=== PATIENT | female | born 1960 | race Caucasian/White ===

== ENCOUNTER 2019-08-18 17:28 | Emergency (ER) | payer OTHER ==
[~2019-08-18] VITALS: Ht 170.2 cm; Wt 119.8 kg
[~2019-08-18 17:28] MED LIST: BACTRIM DS TAB1 EACH PO; CLARITIN10 MG PO; COMBIVENT RESPIM4 GM INH; GABAPENTIN300 MG PO; HYDROCODON-ACE1 EA10 PO; IBUPROFEN200 MG PO; IBUPROFEN800 MG PO; IPRAT-ALBUT 0.5-3 ML INH; KEFLEX250 MG PO; LEVAQUIN500 MG PO; NORCO 5-325 TA1 EACH PO; PERCOCET 5-3251 EACH PO; PREDNISONE10 MG PO; PREDNISONE20 MG PO; PULMICORT FLE180 MCG INH; SEREVENT DISKU1 PUFF INH; THEO-24200 MG PO; VALACYCLOVIR1000 MG PO; VENTOLIN HFA18 GM INH; ZOFRAN ODT4 MG SL
[2019-08-18] MEDS ORDERED: PULMICORT FLE180 MCG INH (17:44)
[2019-08-18] MEDS ORDERED: IPRAT-ALBUT 0.5-3 ML INH (17:44)
[2019-08-18] MEDS ORDERED: PREDNISONE5 MG PO (17:45)
[2019-08-18] MEDS ORDERED: NORCO 7.5-3251 EACH PO (19:21)
== END 2019-08-18 19:48 | disposition home or self-care (01) ==
LOC: ED 17:28
DX: S32.019A Unspecified fracture of first lumbar vertebra, initial encounter for closed fracture (principal); S39.012A Strain of muscle, fascia and tendon of lower back, initial encounter; S30.0XXA Contusion of lower back and pelvis, initial encounter; J45.909 Unspecified asthma, uncomplicated; Z79.899 Other long term (current) drug therapy; X58.XXXA Exposure to other specified factors, initial encounter
CPT/HCPCS: 72100; 72170; 99283; A9270

== ENCOUNTER 2022-11-20 14:39 | Inpatient (IN) | payer OTHER ==
[~2022-11-20] VITALS: Ht 170.2 cm; Wt 97.1 kg
--- OUTSIDE RECORDS SUMMARY | ~2022-11-20 | XMS | Continuity of Care Document ---
Demographics + + + | Address | [address] | | | [place] [address] | + + + | Preferred Language | Unknown | + + + | Marital Status | | + + + | Restorationism Affiliation | Unknown | + + + | Race | White | + + + | Ethnic Group | Not or | + + + Author + + + | Author | [facility] | + + + | Organization | [facility] | + + + | Address | [address] | | | [place] [address] | + + + | Phone | | + + + Care Team Providers + + + + | Care Management Manager Name | Role | Phone | + + + + Unavailable | Unavailable | + + + + Unavailable | Unavailable | + + + + Unavailable | Unavailable | + + + + Unavailable | Unavailable | + + + + Allergies and Intolerances + + + + + | date | description | facility | type | + + + + + | (no date) | Upset stomach | [facility] | | + + + + + | (no date) | Ketamine | [facility] (unknown) | | [facility] | | + + + + + | (no date) | Anaphylaxis | [facility] | (unknown) | | | | [facility] | | + + + + + | (no date) | Ketamine | [facility] (unknown) [facility] | | [facility] | | + + + + + | (no date) | ketamine | [facility] | (unknown) | | | [facility] | | + + + + + | (no date) | Ketamine | [facility] | (unknown) | | | [facility] | | + + + + + | (no date) | Hallucinations | [facility] | (unknown) | | | [facility] | | + + + + + | (no date) | Milk | [facility] | (unknown) | | | | [facility] | | + + + + + | (no date) | Milk | [facility] | (unknown) | | | | [facility] | | + + + + + | (no date) | milk | [facility] ([facility] | | [facility] | | + + + + + | (no date) | milk | [facility] | (unknown) | + + + + + | (no date) | PRESERVATIVES | [facility] | (unknown) | + + + + + Encounters No information. Functional Status No information. Immunizations + + + + | date | description | facility | + + + + | 2022-11-15 00:00 | No vaccine administered | [facility] | + + + + Medications + + + + | date | description | facility | + + + + | 2022-11-15 00:00 | OXYCODONE HCL | [facility] | + + + + | 2022-11-15 00:00 | oxycodone hydrochloride 5 | [facility] | | | MG Oral Tablet | | + + + + | 2016-03-11 00:00 | OXYCODONE | [facility] | | | HCL/ACETAMINOPHEN | | + + + + | 2016-03-11 00:00 | OXYCODONE | [facility] | | | HCL/ACETAMINOPHEN | | + + + + | 2016-03-11 00:00 | acetaminophen 325 MG / | [facility] | | | oxycodone hydrochloride 5 | | | | MG Oral Tab | | + + + + | 2022-11-15 00:00 | 120 ACTUAT albuterol 0.1 | [facility] | | | MG/ACTUAT / ipratropium | | | | bromide 0.0 | | + + + + | 2022-09-01 00:00 | IPRATROPIUM/ALBUTEROL | [facility] | | | SULFATE | | + + + + | 2022-10-03 00:00 | IPRATROPIUM/ALBUTEROL | [facility] | | | SULFATE | | + + + + | 2022-11-15 00:00 | IPRATROPIUM/ALBUTEROL | [facility] | | | SULFATE | | + + + + | 2022-09-01 00:00 | predniSONE | [facility] | + + + + | 2022-10-03 00:00 | predniSONE | [facility] | + + + + | 2022-11-15 00:00 | predniSONE | [facility] | + + + + | 2022-11-15 00:00 | prednisone 10 MG Oral | [facility] | | | Tablet | | + + + + | 2022-09-01 00:00 | CEFDINIR | [facility] | + + + + | 2022-09-01 00:00 | CEFDINIR | [facility] | + + + + | 2022-09-01 00:00 | cefdinir 300 MG Oral | [facility] | | | Capsule | | + + + + | 2022-09-01 00:00 | LORATADINE | [facility] | + + + + | 2022-10-03 00:00 | LORATADINE | [facility] | + + + + | 2022-11-15 00:00 | LORATADINE | [facility] | + + + + | 2022-11-15 00:00 | loratadine 10 MG Oral | [facility] | | | Tablet [Claritin] | | + + + + | 2014-11-05 00:00 | LEVOFLOXACIN | [facility] | + + + + | 2014-11-05 00:00 | LEVOFLOXACIN | [facility] | + + + + | 2014-11-05 00:00 | levofloxacin 500 MG Oral | [facility] | | | Tablet [Levaquin] | | + + + + | 2016-03-11 00:00 | CEPHALEXIN | [facility] | + + + + | 2016-03-11 00:00 | CEPHALEXIN | [facility] | + + + + | 2016-03-11 00:00 | cephalexin 250 MG Oral | [facility] | | | Capsule [Keflex] | | + + + + | 2022-09-01 00:00 | GABAPENTIN | [facility] | + + + + | 2022-10-03 00:00 | GABAPENTIN | [facility] | + + + + | 2022-11-15 00:00 | GABAPENTIN | [facility] | + + + + | 2022-11-15 00:00 | gabapentin 300 MG Oral | [facility] | | | Capsule | | + + + + | 2022-09-01 00:00 | IBUPROFEN | [facility] | + + + + | 2022-10-03 00:00 | IBUPROFEN | [facility] | + + + + | 2022-11-15 00:00 | IBUPROFEN | [facility] | + + + + | 2022-11-15 00:00 | ibuprofen 200 MG Oral | [facility] | | | Tablet | | + + + + | 2022-10-03 00:00 | ONDANSETRON | [facility] | + + + + | 2022-11-15 00:00 | ONDANSETRON | [facility] | + + + + | 2022-10-03 00:00 | ondansetron 8 MG | [facility] | | | Disintegrating Oral Tablet | | + + + + | 2022-11-15 00:00 | ondansetron 8 MG | [facility] | | | Disintegrating Oral Tablet | | + + + + | 2022-09-01 00:00 | predniSONE | [facility] | + + + + | 2022-10-03 00:00 | predniSONE | [facility] | + + + + | 2022-11-15 00:00 | predniSONE | [facility] | + + + + | 2022-11-15 00:00 | prednisone 20 MG Oral | [facility] | | | Tablet | | + + + + | 2022-09-01 00:00 | PREDNISONE | [facility] | + + + + | 2022-10-03 00:00 | PREDNISONE | [facility] | + + + + | 2022-11-15 00:00 | PREDNISONE | [facility] | + + + + | 2022-11-15 00:00 | prednisone 5 MG Oral | [facility] | | | Tablet | | + + + + | 2022-11-15 00:00 | SENNOSIDES | [facility] | + + + + | 2022-11-15 00:00 | sennosides, ASSISTED 8.6 MG | [facility] | | | Oral Tablet | | + + + + | 2022-09-01 00:00 | VALACYCLOVIR HCL | [facility] | + + + + | 2022-10-03 00:00 | VALACYCLOVIR HCL | [facility] | + + + + | 2022-11-15 00:00 | VALACYCLOVIR HCL | [facility] | + + + + | 2022-11-15 00:00 | valacyclovir 1000 MG Oral | [facility] | | | Tablet | | + + + + | 2022-09-01 00:00 | TRAMADOL HCL | [facility] | + + + + | 2022-09-01 00:00 | TRAMADOL HCL | [facility] | + + + + | 2022-09-01 00:00 | THEOPHYLLINE ANHYDROUS | [facility] | + + + + | 2022-10-03 00:00 | THEOPHYLLINE ANHYDROUS | [facility] | + + + + | 2022-11-15 00:00 | THEOPHYLLINE ANHYDROUS | [facility] | + + + + | 2022-11-15 00:00 | theophylline 200 MG | [facility] | | | Extended Release Oral | | | | Capsule [Hunter-24] | | + + + + | 2014-01-04 00:00 | | [facility] | | | SULFAMETHOXAZOLE/TRIMETHOPR | | | | IM DS | | + + + + | 2014-01-04 00:00 | | [facility] | | | SULFAMETHOXAZOLE/TRIMETHOPR | | | | IM DS | | + + + + | 2016-02-17 00:00 | | [facility] | | | SULFAMETHOXAZOLE/TRIMETHOPR | | | | IM DS | | + + + + | 2016-02-17 00:00 | | [facility] | | | SULFAMETHOXAZOLE/TRIMETHOPR | | | | IM DS | | + + + + | 2014-01-04 00:00 | sulfamethoxazole 800 MG / | [facility] | | | trimethoprim 160 MG Oral | | | | Tablet [B | | + + + + | 2016-02-17 00:00 | sulfamethoxazole 800 MG / | [facility] | | | trimethoprim 160 MG Oral | | | | Tablet [B | | + + + + | 2022-09-01 00:00 | HYDROCODONE | [facility] | | | BIT/ACETAMINOPHEN | | + + + + | 2022-10-03 00:00 | HYDROCODONE | [facility] | | | BIT/ACETAMINOPHEN | | + + + + | 2022-11-15 00:00 | HYDROCODONE | [facility] | | | BIT/ACETAMINOPHEN | | + + + + | 2022-11-15 00:00 | acetaminophen 325 MG / | [facility] | | | hydrocodone bitartrate 5 MG | | | | Oral Tabl | | + + + + | 2014-11-05 00:00 | HYDROCODONE | [facility] | | | BIT/ACETAMINOPHEN | | + + + + | 2014-11-05 00:00 | HYDROCODONE | [facility] | | | BIT/ACETAMINOPHEN | | + + + + | 2014-11-05 00:00 | acetaminophen 325 MG / | [facility] | | | hydrocodone bitartrate 5 MG | | | | Oral Tabl | | + + + + | 2022-10-03 00:00 | HYDROCODONE | [facility] | | | BIT/ACETAMINOPHEN | | + + + + | 2022-10-03 00:00 | acetaminophen 325 MG / | [facility] | | | hydrocodone bitartrate 7.5 | | | | MG Oral Ta | | + + + + | 2022-09-01 00:00 | ALBUTEROL SULFATE | [facility] | + + + + | 2022-10-03 00:00 | ALBUTEROL SULFATE | [facility] | + + + + | 2022-11-15 00:00 | ALBUTEROL SULFATE | [facility] | + + + + | 2022-11-15 00:00 | [id number] 200 ACTUAT | [facility] | | | albuterol 0.09 MG/ACTUAT | | | | Metered Dose I | | + + + + | 2022-11-15 00:00 | HYDROMORPHONE HCL | [facility] | + + + + | 2022-11-15 00:00 | hydromorphone | [facility] | | | hydrochloride 2 MG Oral | | | | Tablet [Dilaudid] | | + + + + | 2022-11-15 00:00 | 120 ACTUAT budesonide 0.18 | [facility] | | | MG/ACTUAT Dry Powder | | | | Inhaler [Pul | | + + + + | 2022-09-01 00:00 | BUDESONIDE | [facility] | + + + + | 2022-10-03 00:00 | BUDESONIDE | [facility] | + + + + | 2022-11-15 00:00 | BUDESONIDE | [facility] | + + + + Problems + + + + | date | description | facility | + + + + | 2014-11-02 00:00 | Sepsis | [facility] | + + + + | 2014-11-02 00:00 | Sepsis | [facility] | + + + + | 2015-07-06 00:00 | Laceration of right lower | [facility] | | | leg with complication | | + + + + | 2015-07-06 00:00 | Laceration of right lower | [facility] | | | leg with complication | | + + + + | 2015-07-06 00:00 | History of conscious | [facility] | | | sedation | | + + + + | 2015-07-06 00:00 | History of conscious | [facility] | | | sedation | | + + + + | 2016 00:00 | Cellulitis of right foot | [facility] | + + + + | 2016 00:00 | Cellulitis of right foot | [facility] | + + + + | 2016-02-16 00:00 | Sepsis, Gram positive | [facility] | + + + + | 2016-02-16 00:00 | Morbid obesity with BMI of | [facility] | | | 40.0-44.9, adult | | + + + + | 2016-02-16 00:00 | Transaminitis | [facility] | + + + + | 2016-02-16 00:00 | Gram positive sepsis | [facility] | + + + + | 2016-02-16 00:00 | Gram positive sepsis | [facility] | + + + + | 2016-02-16 00:00 | Herpes zoster | [facility] | + + + + | 2016-02-16 00:00 | Herpes zoster | [facility] | + + + + | 2016-02-16 00:00 | Morbid obesity with body | [facility] | | | mass index (BMI) of 40.0 to | | | | 44.9 in adult | | + + + + | 2016-02-16 00:00 | Morbid obesity with body | [facility] | | | mass index (BMI) of 40.0 to | | | | 44.9 in adult | | + + + + | 2016-02-16 00:00 | Chronic pain syndrome | [facility] | + + + + | 2016-02-16 00:00 | Chronic pain syndrome | [facility] | + + + + | 2016-02-16 00:00 | Steroid-dependent asthma | [facility] | + + + + | 2016-02-16 00:00 | Steroid-dependent asthma | [facility] | + + + + | 2016-02-16 00:00 | Elevated transaminase | [facility] | | | measurement | | + + + + | 2016-02-16 00:00 | Elevated transaminase | [facility] | | | measurement | | + + + + | 2016-03-11 00:00 | Contusion of left shoulder | [facility] | | | | | + + + + | 2016-03-11 00:00 | Contusion of left shoulder | [facility] | | | | | + + + + | 2016-03-11 00:00 | Skin tear of left upper | [facility] | | | extremity | | + + + + | 2016-03-11 00:00 | Skin tear of left upper | [facility] | | | extremity | | + + + + | 2016-03-11 00:00 | Tear of skin of multiple | [facility] | | | sites of lower extremity | | + + + + | 2016-03-11 00:00 | Tear of skin of multiple | [facility] | | | sites of lower extremity | | + + + + | 2016-03-11 00:00 | Fall from ground level | [facility] | + + + + | 2016-03-11 00:00 | Fall from ground level | [facility] | + + + + | 2022-09-01 00:00 | UTI (urinary tract | [facility] | | | infection) | | + + + + | 2022-09-01 00:00 | Gastritis | [facility] | + + + + | 2022-09-01 00:00 | Gastritis | [facility] | + + + + | 2022-09-01 00:00 | Urinary tract infection | [facility] | + + + + | 2022-09-01 00:00 | Urinary tract infection | [facility] | + + + + | 2022-09-01 13:18 | GASTRITIS, UNSPECIFIED, | [facility] | | | WITHOUT BLEEDING | | + + + + | 2022-09-01 13:18 | URINARY TRACT INFECTION, | [facility] | | | SITE NOT SPECIFIED | | + + + + | 2022-09-01 13:18 | EPIGASTRIC PAIN | [facility] | + + + + | 2022-09-01 13:18 | 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 | | + + + + | 2022-09-01 13:18 | ALLERGY TO MILK PRODUCTS | [facility] | + + + + | 2022-10-03 00:00 | Mass of pancreas | [facility] | + + + + | 2022-10-03 00:00 | Dyspepsia | [facility] | + + + + | 2022-10-03 13:51 | UNSPECIFIED ASTHMA, | [facility] | | | UNCOMPLICATED | | + + + + | 2022-10-03 13:51 | DISEASE OF PANCREAS, | [facility] | | | UNSPECIFIED | | + + + + | 2022-10-03 13:51 | UPPER ABDOMINAL PAIN, | [facility] | | | UNSPECIFIED | | + + + + | 2022-10-03 13:51 | 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) | [facility] | | | DRUG THERAPY | | + + + + | 2022-10-03 13:51 | ALLERGY TO MILK PRODUCTS | [facility] | + + + + | 2022-10-03 13:51 | FOOD ADDITIVES ALLERGY | [facility] | | | STATUS | | + + + + | 2022-10-22 15:12 | MALIGNANT NEOPLASM OF | [facility] | | | OVERLAPPING SITES OF | | | | PANCREAS | | + + + + | 2022-10-24 09:45 | MALIGNANT NEOPLASM OF | [facility] | | | OVERLAPPING SITES OF | | | | PANCREAS | | + + + + | 2022-10-24 09:45 | OTHER SPECIFIED DISEASES | [facility] | | | OF LIVER | | + + + + | 2022-10-26 12:38 | MALIGNANT NEOPLASM OF | [facility] | | | OVERLAPPING SITES OF | | | | PANCREAS | | + + + + | 2022-11-09 14:17 | MALIGNANT NEOPLASM OF | [facility] | | | OVERLAPPING SITES OF | | | | PANCREAS | | + + + + | 2022-11-09 14:17 | MALIGNANT NEOPLASM OF | [facility] | | | OVERLAPPING SITES | | + + + + | 2022-11-09 14:30 | MALIGNANT NEOPLASM OF | [facility] | | | OVERLAPPING SITES | | + + + + | 2022-11-15 09:57 | MALIGNANT NEOPLASM OF | [facility] | | | PANCREAS, UNSPECIF | | + + + + | 2022-11-15 09:57 | 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 | | + + + + | 2022-11-15 09:57 | ENLARGED LYMPH NODES, | [facility] | | | UNSPECIFIED | | + + + + | 2022-11-15 12:30 | MALIGNANT NEOPLASM OF | [facility] | | | PANCREAS, UNSPECIF | | + + + + | 2022-11-15 12:30 | 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 (no | [facility]units | (unknown) | | | | [facility] | value) | unknown) | | | [facility] | | | | + + + + +---------+ + + + + | Result panel 2 | + + + + + + +---------+ + + | (unknown) | (no date) | (unknown) | [facility] | (no | (units | (unknown) | | | | [facility] | value) | unknown) | | | | [facility] | | | | + + + + +---------+ + + + + | Result panel 3 | + + + + + + +---------+ + + | (unknown) | (no date) | (unknown) | [facility] | (no | (units | (unknown) | | | | [facility] | value) | unknown) | | | | [facility] | | | | + + + + +---------+ + + + + | Result panel 4 | + + + + + + +---------+ + + | (unknown) | (no date) | (unknown) | [facility] | (no | (units | (unknown) | | | | | [facility] | value) | unknown) | | | | | [facility] | | | | + + + + +---------+ + + + + | Result panel 5 | + + + + + + +---------+ + + | (unknown) | (no date) | (unknown) | [facility] | (no | (units | (unknown) | | | | | [facility] | value) | unknown) | | | | | [facility] | | | | + + + + +---------+ + + + + | Result panel 6 | + + + + + + +---------+ + + | (unknown) | (no date) | (unknown) | [facility] | (no | (units | (unknown) | | | | | [facility] | value) | unknown) | | | | | [facility] | | | | + + + + +---------+ + + + + | Result panel 7 | + + + + + + +---------+ + + | (unknown) | (no date) | (unknown) | [facility] | (no | (units | (unknown) | | | | | [facility] | value) | unknown) | | | | | [facility] | | | | + + + + +---------+ + + + + | Result panel 8 | + + + + + + +---------+ + + | (unknown) | (no date) | (unknown) | [facility] | (no | (units | (unknown) | | | | | [facility] | value) | unknown) | | | | | [facility] | | | | + + + + +---------+ + + + + | Result panel 9 | + + + + + + +---------+ + + | (unknown) | (no date) | (unknown) | [facility] | (no | (units | (unknown) | | | | | [facility] | value) | unknown) | | | | | [facility] | | | | + + + + +---------+ + + + + | Result panel 10 | + + + + + + +---------+ + + | (unknown) | (no date) | (unknown) | [facility] | (no | (units | (unknown) | | | | | [facility] | value) | unknown) | | | | | [facility] | | | | + + + + +---------+ + + + + | Result panel 11 | + + + + + + +---------+ + + | (unknown) | (no date) | (unknown) | [facility] | (no | (units | (unknown) | | | | | [facility] | value) | unknown) | | | | | [facility] | | | | + + + + +---------+ + + + + | Result panel 12 | + + + + + + +---------+ + + | (unknown) | (no date) | (unknown) | [facility] | (no | (units | (unknown) | | | | | [facility] | value) | unknown) | | | | | [facility] | | | | + + + + +---------+ + + + + | Result panel 13 | + + + + + + +---------+ + + | (unknown) | (no date) | (unknown) | [facility] | (no | (units | (unknown) | | | | | [facility] | value) | unknown) | | | | | [facility] | | | | + + + + +---------+ + + + + | Result panel 14 | + + + + + + +---------+ + + | (unknown) | (no date) | (unknown) | [facility] | (no | (units | (unknown) | | | | | [facility] | value) | unknown) | | | | | [facility] | | | | + + + + +---------+ + + + + | Result panel 15 | + + + + + + +---------+ + + | (unknown) | (no date) | (unknown) | [facility] | (no | (units | (unknown) | | | | | [facility] | value) | unknown) | | | | [facility] | | | | + + + + +---------+ + + + + | Result panel 16 | + + + + + + +---------+ + + | (unknown) | (no date) | (unknown) | [facility] | (no | (units | (unknown) | | | | | [facility] | value) | unknown) | | | | [facility] | | | | + + + + +---------+ + + + + | Result panel 17 | + + + + + + +---------+ + + | (unknown) | (no date) | (unknown) | [facility] | (no | (units | (unknown) | | | | | [facility] | value) | unknown) | | | | [facility] | | | | + + + + +---------+ + + + + | Result panel 18 | + + + + + + +---------+ + + | (unknown) | (no date) | (unknown) | [facility] | (no | (units | (unknown) | | | | | [facility] | value) | unknown) | | | | [facility] | | | | + + + + +---------+ + + + + | Result panel 19 | + + + + + + +---------+ + + | (unknown) | (no date) | (unknown) | [facility] | (no | (units | (unknown) | | | | | [facility] | value) | unknown) | | | | [facility] | | | | + + + + +---------+ + + + + | Result panel 20 | + + + + + + +---------+ + + | (unknown) | (no date) | (unknown) | [facility] | (no | (units | (unknown) | | | | | [facility] | value) | unknown) | | | | [facility] | | | | + + + + +---------+ + + + + | Result panel 21 | + + + + + + +---------+ + + | (unknown) | (no date) | (unknown) | [facility] | (no | (units | (unknown) | | | | | [facility] | value) | unknown) | | | | [facility] | | | | + + + + +---------+ + + + + | Result panel 22 | + + + + + + +---------+ + + | (unknown) | (no date) | (unknown) | [facility] | (no | (units | (unknown) | | | | | [facility] | value) | unknown) | | | | [facility] | | | | + + + + +---------+ + + + + | Result panel 23 | + + + + + + +---------+ + + | (unknown) | (no date) | (unknown) | [facility] | (no | (units | (unknown) | | | | | [facility] | value) | unknown) | | | | [facility] | | | | + + + + +---------+ + + + + | Result panel 24 | + + + + + + +---------+ + + | (unknown) | (no date) | (unknown) | [facility] | (no | (units | (unknown) | | | | | [facility] | value) | unknown) | | | | [facility] | | | | + + + + +---------+ + + + + | Result panel 25 | + + + + + + +---------+ + + | (unknown) | (no date) | (unknown) | [facility] | (no | (units | (unknown) | | | | | [facility] | value) | unknown) | | | | | [facility] | | | | + + + + +---------+ + + + + | Result panel 26 | + + + + + + +---------+ + + | (unknown) | (no date) | (unknown) | [facility] | (no | (units | (unknown) | | | | | [facility] | value) | unknown) | | | | | [facility] | | | | + + + + +---------+ + + + + | Result panel 27 | + + + + + + +---------+ + + | (unknown) | (no date) | (unknown) | [facility] | (no | (units | (unknown) | | | | | [facility] | value) | unknown) | | | | | [facility] | | | | + + + + +---------+ + + + + | Result panel 28 | + + + + + + +---------+ + + | (unknown) | (no date) | (unknown) | [facility] | (no | (units | (unknown) | | | | | [facility] | value) | unknown) | | | | | [facility] | | | | + + + + +---------+ + + + + | Result panel 29 | + + + + + + +---------+ + + | (unknown) | (no date) | (unknown) | [facility] | (no | (units | (unknown) | | | | | [facility] | value) | unknown) | | | | | | [facility] | | | | + + + + +---------+ + + + + | Result panel 30 | + + + + + + +---------+ + + | (unknown) | (no date) | (unknown) | [facility] | (no | (units | (unknown) | | | | | [facility] | value) | unknown) | | | | | | [facility] | | | | + + + + +---------+ + + + + | Result panel 31 | + + + + + + +---------+ + + | (unknown) | (no date) | (unknown) | [facility] | (no | (units | (unknown) | | | | | [facility] | value) | unknown) | | | | | | [facility] | | | | + + + + +---------+ + + + + | Result panel 32 | + + + + + + +---------+ + + | (unknown) | (no date) | (unknown) | [facility] | (no | (units | (unknown) | | | | | [facility] | value) | unknown) | | | | | | [facility] | | | | + + + + +---------+ + + + + | Result panel 33 | + + + + + + +---------+ + + | (unknown) | (no date) | (unknown) | [facility] | (no | (units | (unknown) | | | | | [facility] | value) | unknown) | | | | | | [facility] | | | | + + + + +---------+ + + + + | Result panel 34 | + + + + + + +---------+ + + | (unknown) | (no date) | (unknown) | [facility] | (no | (units | (unknown) | | | | | [facility] | value) | unknown) | | | | | | [facility] | | | | + + + + +---------+ + + + + | Result panel 35 | + + + + + + +---------+ + + | (unknown) | (no date) | (unknown) | [facility] | (no | (units | (unknown) | | | | | [facility] | value) | unknown) | | | | | | [facility] | | | | + + + + +---------+ + + + + | Result panel 36 | + + + + + + +---------+ + + | (unknown) | (no date) | (unknown) | [facility] | (no | (units | (unknown) | | | | | [facility] | value) | unknown) | | | | | [facility] | | | | + + + + +---------+ + + + + | Result panel 37 | + + + + + + +---------+ + + | (unknown) | (no date) | (unknown) | [facility] | (no | (units | (unknown) | | | | | [facility] | value) | unknown) | | | | | [facility] | | | | + + + + +---------+ + + + + | Result panel 38 | + + + + + + +---------+ + + | (unknown) | (no date) | (unknown) | [facility] | (no | (units | (unknown) | | | | | [facility] | value) | unknown) | | | | | [facility] | | | | + + + + +---------+ + + + + | Result panel 39 | + + + + + + +---------+ + + | (unknown) | (no date) | (unknown) | [facility] | (no | (units | (unknown) | | | | | [facility] | value) | unknown) | | | | | [facility] | | | | + + + + +---------+ + + + + | Result panel 40 | + + + + + + +---------+ + + | (unknown) | (no date) | (unknown) | [facility] | (no | (units | (unknown) | | | | | [facility] | value) | unknown) | | | | | [facility] | | | | + + + + +---------+ + + + + | Result panel 41 | + + + + + + +---------+ + + | (unknown) | (no date) | (unknown) | [facility] | (no | (units | (unknown) | | | | | [facility] | value) | unknown) | | | | | [facility] | | | | + + + + +---------+ + + + + | Result panel 42 | + + + + + + +---------+ + + | (unknown) | (no date) | (unknown) | [facility] | (no | (units | (unknown) | | | | | [facility] | value) | unknown) | | | | | [facility] | | | | + + + + +---------+ + + + + | Result panel 43 | + + + + + + +---------+ + + | (unknown) | (no date) | (unknown) | [facility] | (no | (units | (unknown) | | | | | [facility] | value) | unknown) | | | | | [facility] | | | | + + + + +---------+ + + + + | Result panel 44 | + + + + + + +---------+ + + | (unknown) | (no date) | (unknown) | [facility] | (no | (units | (unknown) | | | | | [facility] | value) | unknown) | | | | | [facility] | | | | + + + + +---------+ + + + + | Result panel 45 | + + + + + + +---------+ + + | (unknown) | (no date) | (unknown) | [facility] | (no | (units | (unknown) | | | | | [facility] | value) | unknown) | | | | | [facility] | | | | + + + + +---------+ + + + + | Result panel 46 | + + + + + + +---------+ + + | (unknown) | (no date) | (unknown) | [facility] | (no | (units | (unknown) | | | | | [facility] | value) | unknown) | | | | | [facility] | | | | + + + + +---------+ + + + + | Result panel 47 | + + + + + + +---------+ + + | (unknown) | (no date) | (unknown) | [facility] | (no | (units | (unknown) | | | | | [facility] | value) | unknown) | | | | | [facility] | | | | + + + + +---------+ + + + + | Result panel 48 | + + + + + + +---------+ + + | (unknown) | (no date) | (unknown) | [facility] | (no | (units | (unknown) | | | | | [facility] | value) | unknown) | | | | | [facility] | | | | + + + + +---------+ + + + + | Result panel 49 | + + + + + + +---------+ + + | (unknown) | (no date) | (unknown) | [facility] | (no | (units | (unknown) | | | | | [facility] | value) | unknown) | | | | | [facility] | | | | + + + + +---------+ + + + + | Result panel 50 | + + + + + + +---------+ + + | (unknown) | (no date) | (unknown) | [facility] | (no | (units | (unknown) | | | | | [facility] | value) | unknown) | [facility] | | | [facility] | | | | + + + + +---------+ + + + + | Result panel 51 | + + + + + + +---------+ + + | (unknown) | (no date) | (unknown) | [facility] | (no | (units | (unknown) | | | | | [facility] | value) | unknown) | | | | | [facility] | | | | + + + + +---------+ + + + + | Result panel 52 | + + + + + + +---------+ + + | (unknown) | (no date) | (unknown) | [facility] | (no | (units | (unknown) | | | | | [facility] | value) | unknown) | [facility] | | | [facility] | | | | + + + + +---------+ + + + + | Result panel 53 | + + + + + + +---------+ + + | (unknown) | (no date) | (unknown) | [facility] | (no | (units | (unknown) | | | | | [facility] | value) | unknown) | | | | | [facility] | | | | + + + + +---------+ + + + + | Result panel 54 | + + + + + + +---------+ + + | (unknown) | (no date) | (unknown) | [facility] | (no | (units | (unknown) | | | | | [facility] | value) | unknown) | | | | | [facility] | | | | + + + + +---------+ + + + + | Result panel 55 | + + + + + + +---------+ + + | (unknown) | (no date) | (unknown) | [facility] | (no | (units | (unknown) | | | | | [facility] | value) | unknown) | | | | | [facility] | | | | + + + + +---------+ + + + + | Result panel 56 | + + + + + + +---------+ + + | (unknown) | (no date) | (unknown) | [facility] | (no | (units | (unknown) | | | | | [facility] | value) | unknown) | | | | | [facility] | | | | + + + + +---------+ + + + + | Result panel 57 | + + + + + + +---------+ + + | (unknown) | (no date) | (unknown) | [facility] | (no | (units | (unknown) | | | | | [facility] | value) | unknown) | | | | | [facility] | | | | + + + + +---------+ + + + + | Result panel 58 | + + + + + + +---------+ + + | (unknown) | (no date) | (unknown) | [facility] | (no | (units | (unknown) | | | | | [facility] | value) | unknown) | | | | | [facility] | | | | + + + + +---------+ + + + + | Result panel 59 | + + + + + + +---------+ + + | (unknown) | (no date) | (unknown) | [facility] | (no | (units | (unknown) | | | | | [facility] | value) | unknown) | | | | | [facility] | | | | + + + + +---------+ + + + + | Result panel 60 | + + + + + + +---------+ + + | (unknown) | (no date) | (unknown) | [facility] | (no | (units | (unknown) | | | | | [facility] | value) | unknown) | | | | | [facility] | | | | + + + + +---------+ + + + + | Result panel 61 | + + + + + + +---------+ + + | (unknown) | (no date) | (unknown) | [facility] | (no | (units | (unknown) | | | | | [facility] | value) | unknown) | | | | | [facility] | | | | + + + + +---------+ + + + + | Result panel 62 | + + + + + + +---------+ + + | (unknown) | (no date) | (unknown) | [facility] | (no | (units | (unknown) | | | | | [facility] | value) | unknown) | [facility] | | | [facility] | | | | + + + + +---------+ + + + + | Result panel 63 | + + + + + + +---------+ + + | (unknown) | (no date) | (unknown) | [facility] | (no | (units | (unknown) | | | | | [facility] | value) | unknown) | | | | | [facility] | | | | + + + + +---------+ + + + + | Result panel 64 | + + + + + + +---------+ + + | (unknown) | (no date) | (unknown) | [facility] | (no | (units | (unknown) | | | | | [facility] | value) | unknown) | | | | | [facility] | | | | + + + + +---------+ + + + + | Result panel 65 | + + + + + + +---------+ + + | (unknown) | (no date) | (unknown) | [facility] | (no | (units | (unknown) | | | | | [facility] | value) | unknown) | | | | | [facility] | | | | + + + + +---------+ + + + + | Result panel 66 | + + + + + + +---------+ + + | (unknown) | (no date) | (unknown) | [facility] | (no | (units | (unknown) | | | | | [facility] | value) | unknown) | | | | | [facility] | | | | + + + + +---------+ + + + + | Result panel 67 | + + + + + + +---------+ + + | (unknown) | (no date) | (unknown) | [facility] | (no | (units | (unknown) | | | | | [facility] | value) | unknown) | | | | | [facility] | | | | + + + + +---------+ + + + + | Result panel 68 | + + + + + + +---------+ + + | (unknown) | (no date) | (unknown) | [facility] | (no | (units | (unknown) | | | | | [facility] | value) | unknown) | | | | | [facility] | | | | + + + + +---------+ + + + + | Result panel 69 | + + + + + + +---------+ + + | (unknown) | (no date) | (unknown) | [facility] | (no | (units | (unknown) | | | | | [facility] | value) | unknown) | | | | | [facility] | | | | + + + + +---------+ + + + + | Result panel 70 | + + + + + + +---------+ + + | (unknown) | (no date) | (unknown) | [facility] | (no | (units | (unknown) | | | | | [facility] | value) | unknown) | | [facility] | | [facility] | | | | + + + + +---------+ + + + + | Result panel 71 | + + + + + + +---------+ + + | (unknown) | (no date) | (unknown) | [facility] | (no | (units | (unknown) | | | | | [facility] | value) | unknown) | | | | | [facility] | | | | + + + + +---------+ + + + + | Result panel 72 | + + + + + + +---------+ + + | (unknown) | (no date) | (unknown) | [facility] | (no | (units | (unknown) | | | | | [facility] | value) | unknown) | | | | | [facility] | | | | + + + + +---------+ + + + + | Result panel 73 | + + + + + + +---------+ + + | (unknown) | (no date) | (unknown) | [facility] | (no | (units | (unknown) | | | | | [facility] | value) | unknown) | | | | | [facility] | | | | + + + + +---------+ + + + + | Result panel 74 | + + + + + + +---------+ + + | (unknown) | (no date) | (unknown) | [facility] | (no | (units | (unknown) | | | | | [facility] | value) | unknown) | | | | | [facility] | | | | + + + + +---------+ + + + + | Result panel 75 | + + + + + + +---------+ + + | (unknown) | (no date) | (unknown) | [facility] | (no | (units | (unknown) | | | | | [facility] | value) | unknown) | | | | | [facility] | | | | + + + + +---------+ + + + + | Result panel 76 | + + + + + + +---------+ + + | (unknown) | (no date) | (unknown) | [facility] | (no | (units | (unknown) | | | | | [facility] | value) | unknown) | | | | | [facility] | | | | + + + + +---------+ + + + + | Result panel 77 | + + + + + + +---------+ + + | (unknown) | (no date) | (unknown) | [facility] | (no | (units | (unknown) | | | | | [facility] | value) | unknown) | | | | | [facility] | | | | + + + + +---------+ + + + + | Result panel 78 | + + + + + + +---------+ + + | (unknown) | (no date) | (unknown) | [facility] | (no | (units | (unknown) | | | | | [facility] | value) | unknown) | | | | | [facility] | | | | + + + + +---------+ + + + + | Result panel 79 | + + + + + + +---------+ + + | (unknown) | (no date) | (unknown) | [facility] | (no | (units | (unknown) | | | | | [facility] | value) | unknown) | | | | | | [facility] | | | | + + + + +---------+ + + + + | Result panel 80 | + + + + + + +---------+ + + | (unknown) | (no date) | (unknown) | [facility] | (no | (units | (unknown) | | | | | [facility] | value) | unknown) | | | | | [facility] | | | | + + + + +---------+ + + + + | Result panel 81 | + + + + + + +---------+ + + | (unknown) | (no date) | (unknown) | [facility] | (no | (units | (unknown) | | | | | [facility] | value) | unknown) | | | | | [facility] | | | | + + + + +---------+ + + + + | Result panel 82 | + + + + + + +---------+ + + | (unknown) | (no date) | (unknown) | [facility] | (no | (units | (unknown) | | | | | [facility] | value) | unknown) | [facility] | | | [facility] | | | | + + + + +---------+ + + + + | Result panel 83 | + + + + + + +---------+ + + | (unknown) | (no date) | (unknown) | [facility] | (no | (units | (unknown) | | | | | [facility] | value) | unknown) | | | | | [facility] | | | | + + + + +---------+ + + + + | Result panel 84 | + + + + + + +---------+ + + | (unknown) | (no date) | (unknown) | [facility] | (no | (units | (unknown) | | | | | [facility] | value) | unknown) | | | | | [facility] | | | | + + + + +---------+ + + + + | Result panel 85 | + + + + + + +---------+ + + | (unknown) | (no date) | (unknown) | [facility] | (no | (units | (unknown) | | | | | [facility] | value) | unknown) | [facility] | | | [facility] | | | | + + + + +---------+ + + + + | Result panel 86 | + + + + + + +---------+ + + | (unknown) | (no date) | (unknown) | [facility] | (no | (units | (unknown) | | | | | [facility] | value) | unknown) | | | | | [facility] | | | | + + + + +---------+ + + + + | Result panel 87 | + + + + + + +---------+ + + | (unknown) | (no date) | (unknown) | [facility] | (no | (units | (unknown) | | | | | [facility] | value) | unknown) | | | | | [facility] | | | | + + + + +---------+ + + + + | Result panel 88 | + + + + + + +---------+ + + | (unknown) | (no date) | (unknown) | [facility] | (no | (units | (unknown) | | | | | [facility] | value) | unknown) | | | | | [facility] | | | | + + + + +---------+ + + + + | Result panel 89 | + + + + + + +---------+ + + | (unknown) | (no date) | (unknown) | [facility] | (no | (units | (unknown) | | | | | [facility] | value) | unknown) | | | | | [facility] | | | | + + + + +---------+ + + + + | Result panel 90 | + + + + + + +---------+ + + | (unknown) | (no date) | (unknown) | [facility] | (no | (units | (unknown) | | | | | [facility] | value) | unknown) | | | | | [facility] | | | | + + + + +---------+ + + Social History + + + + | date | description | facility | + + + + | 2022-11-15 00:00 | Never smoker | [facility] | + + + + Vital Signs + + + +---------+ | date | measurement | value | units | + + + +---------+ | 2022-09-01 00:00 | BMI | 41.3 | kg/m2 | + + + +---------+ | 2022-09-01 00:00 | BP_diastolic | 92 | mmHg | + + + +---------+ | 2022-09-01 00:00 | BP_systolic | 138 | mmHg | + + + +---------+ | 2022-09-01 00:00 | heart_rate | 88 | /min | + + + +---------+ | 2022-09-01 00:00 | height_metric | 170.18 | cm | + + + +---------+ | 2022-09-01 00:00 | height_standard | 67 | in | + + + +---------+ | 2022-09-01 00:00 | o2_saturation | 95 | % | + + + +---------+ | 2022-09-01 00:00 | respiration_rate | 16 | /min | + + + +---------+ | 2022-09-01 00:00 | temperature_metric | 36.94 | C | | | | | | + + + +---------+ | 2022-09-01 00:00 | | 98.5 | F | | | temperature_standar | | | | | d | | | + + + +---------+ | 2022-09-01 00:00 | weight_metric | 119.75 | kg | + + + +---------+ | 2022-09-01 00:00 | weight_standard | 264 | lb | + + + +---------+ | 2022-10-03 00:00 | BMI | 41.3 | kg/m2 | + + + +---------+ | 2022-10-03 00:00 | BP_diastolic | 77 | mmHg | + + + +---------+ | 2022-10-03 00:00 | BP_systolic | 122 | mmHg | + + + +---------+ | 2022-10-03 00:00 | heart_rate | 66 | /min | + + + +---------+ | 2022-10-03 00:00 | height_metric | 170.18 | cm | + + + +---------+ | 2022-10-03 00:00 | height_standard | 67 | in | + + + +---------+ | 2022-10-03 00:00 | o2_saturation | 93 | % | + + + +---------+ | 2022-10-03 00:00 | respiration_rate | 16 | /min | + + + +---------+ | 2022-10-03 00:00 | temperature_metric | 36.72 | C | | | | | | + + + +---------+ | 2022-10-03 00:00 | | 98.1 | F | | | temperature_standar | | | | | d | | | + + + +---------+ | 2022-10-03 00:00 | weight_metric | 119.75 | kg | + + + +---------+ | 2022-10-03 00:00 | weight_standard | 264 | lb | + + + +---------+ | 2022-11-14 00:00 | BMI | 33.6 | kg/m2 | + + + +---------+ | 2022-11-14 00:00 | height_metric | 170.18 | cm | + + + +---------+ | 2022-11-14 00:00 | height_standard | 67 | in | + + + +---------+ | 2022-11-14 00:00 | weight_metric | 97.27 | kg | + + + +---------+ | 2022-11-14 00:00 | weight_standard | 214.44 | lb | + + + +---------+ | 2022-11-15 00:00 | BP_diastolic | 76 | mmHg | + + + +---------+ | 2022-11-15 00:00 | BP_systolic | 129 | mmHg | + + + +---------+ | 2022-11-15 00:00 | heart_rate | 72 | /min | + + + +---------+ | 2022-11-15 00:00 | o2_saturation | 100 | % | + + + +---------+ | 2022-11-15 00:00 | respiration_rate | 16 | /min | + + + +---------+ | 2022-11-15 00:00 | temperature_metric | 36.67 | C | | | | | | + + + +---------+ | 2022-11-15 00:00 | | 98 | F | | | temperature_standar | | | | | d | | | + + + +---------+"
--- OUTSIDE RECORDS SUMMARY | ~2022-11-20 | XMS | Continuity of Care Document ---
Demographics + + + | Address | [address] | | | [place] [address] | + + + | Preferred Language | Unknown | + + + | Marital Status | | + + + | Taoism Affiliation | Unknown | + + + | Race | White | + + + | Ethnic Group | Not or | + + + Author + + + | Author | [facility] | + + + | Organization | [facility] | + + + | Address | [address] | | | [place] [address] | + + + | Phone | | + + + Care Team Providers + + + + | Care Site Planner Name | Role | Phone | + [...] | (no date) | Ketamine | [facility] | (unknown) | | | | [facility] | | + + + + + | (no date) | Anaphylaxis | [facility] | (unknown) | | | | Hospital | | + + + + + | (no date) | Ketamine | [facility] | (unknown) | | | | Hospital | | + + + + + | (no date) | ketamine | [facility] | (unknown) | | | | Hospital | | + + + + + | (no date) | Ketamine | [facility] | (unknown) | | | | Hospital | | + + + + + | (no date) | Hallucinations | [facility] | (unknown) | | | | Hospital | | + + + + + | (no date) | Milk | [facility] | (unknown) | | | | Hospital | | + + + + + | (no date) | Milk | [facility] | (unknown) | | | | Hospital [...] 2022-11-15 00:00 | No vaccine administered | [facility] | + + + + Medications + + + + | date | description | facility | + + + + | 2022-11-15 00:00 | OXYCODONE HCL | [facility] | + + + + | 2022-11-15 00:00 | oxycodone hydrochloride 5 | [facility] | | | MG Oral Tablet | | + + + + | 2016-03-11 00:00 | OXYCODONE | [facility] | | | HCL/ACETAMINOPHEN | | + + + + | 2016-03-11 00:00 | OXYCODONE | [facility] | | | HCL/ACETAMINOPHEN | | + + + + | 2016-03-11 00:00 | acetaminophen 325 MG / | [facility] | | | oxycodone hydrochloride 5 | | | | MG Oral Tab | | + + + + | 2022-11-15 00:00 | 120 ACTUAT albuterol 0.1 | [facility] | | | MG/ACTUAT / ipratropium | | | | bromide 0.0 | | + + + + | 2022-09-01 00:00 | IPRATROPIUM/ALBUTEROL | [facility] | | | SULFATE | | + + + + | 2022-10-03 00:00 | IPRATROPIUM/ALBUTEROL | [facility] | | | SULFATE | | + + + + | 2022-11-15 00:00 | IPRATROPIUM/ALBUTEROL | [facility] | | | SULFATE | | + + + + | 2022-09-01 00:00 | predniSONE | [facility] | + + + + | 2022-10-03 00:00 | predniSONE | [facility] | + + + + | 2022-11-15 00:00 | predniSONE | [facility] | + + + + | 2022-11-15 00:00 | prednisone 10 MG Oral | [facility] | | | Tablet | | + + + + | 2022-09-01 00:00 | CEFDINIR | [facility] | + + + + | 2022-09-01 00:00 | CEFDINIR | [facility] | + + + + | 2022-09-01 00:00 | cefdinir 300 MG Oral | [facility] | | | Capsule | | + + + + | 2022-09-01 00:00 | LORATADINE | [facility] | + + + + | 2022-10-03 00:00 | LORATADINE | [facility] | + + + + | 2022-11-15 00:00 | LORATADINE | [facility] | + + + + | 2022-11-15 00:00 | loratadine 10 MG Oral | [facility] | | | Tablet [Claritin] | | + + + + | 2014-11-05 00:00 | LEVOFLOXACIN | [facility] | + + + + | 2014-11-05 00:00 | LEVOFLOXACIN | [facility] | + + + + | 2014-11-05 00:00 | levofloxacin 500 MG Oral | [facility] | | | Tablet [Levaquin] | | + + + + | 2016-03-11 00:00 | CEPHALEXIN | [facility] | + + + + | 2016-03-11 00:00 | CEPHALEXIN | [facility] | + + + + | 2016-03-11 00:00 | cephalexin 250 MG Oral | [facility] | | | Capsule [Keflex] | | + + + + | 2022-09-01 00:00 | GABAPENTIN | [facility] | + + + + | 2022-10-03 00:00 | GABAPENTIN | [facility] | + + + + | 2022-11-15 00:00 | GABAPENTIN | [facility] | + + + + | 2022-11-15 00:00 | gabapentin 300 MG Oral | [facility] | | | Capsule | | + + + + | 2022-09-01 00:00 | IBUPROFEN | [facility] | + + + + | 2022-10-03 00:00 | IBUPROFEN | [facility] | + + + + | 2022-11-15 00:00 | IBUPROFEN | [facility] | + + + + | 2022-11-15 00:00 | ibuprofen 200 MG Oral | [facility] | | | Tablet | | + + + + | 2022-10-03 00:00 | ONDANSETRON | [facility] | + + + + | 2022-11-15 00:00 | ONDANSETRON | [facility] | + + + + | 2022-10-03 00:00 | ondansetron 8 MG | [facility] | | | Disintegrating Oral Tablet | | + + + + | 2022-11-15 00:00 | ondansetron 8 MG | [facility] | | | Disintegrating Oral Tablet | | + + + + | 2022-09-01 00:00 | predniSONE | [facility] | + + + + | 2022-10-03 00:00 | predniSONE | [facility] | + + + + | 2022-11-15 00:00 | predniSONE | [facility] | + + + + | 2022-11-15 00:00 | prednisone 20 MG Oral | [facility] | | | Tablet | | + + + + | 2022-09-01 00:00 | PREDNISONE | [facility] | + + + + | 2022-10-03 00:00 | PREDNISONE | [facility] | + + + + | 2022-11-15 00:00 | PREDNISONE | [facility] | + + + + | 2022-11-15 00:00 | prednisone 5 MG Oral | [facility] | | | Tablet | | + + + + | 2022-11-15 00:00 | SENNOSIDES | [facility] | + + + + | 2022-11-15 00:00 | sennosides, N[facility]SING HOME 8.6 MG | [facility] | | | Oral Tablet | | + + + + | 2022-09-01 00:00 | VALACYCLOVIR HCL | [facility] | + + + + | 2022-10-03 00:00 | VALACYCLOVIR HCL | [facility] | + + + + | 2022-11-15 00:00 | VALACYCLOVIR HCL | [facility] | + + + + | 2022-11-15 00:00 | valacyclovir 1000 MG Oral | [facility] | | | Tablet | | + + + + | 2022-09-01 00:00 | TRAMADOL HCL | [facility] | + + + + | 2022-09-01 00:00 | TRAMADOL HCL | [facility] | + + + + | 2022-09-01 00:00 | THEOPHYLLINE ANHYDROUS | [facility] | + + + + | 2022-10-03 00:00 | THEOPHYLLINE ANHYDROUS | [facility] | + + + + | 2022-11-15 00:00 | THEOPHYLLINE ANHYDROUS | [facility] | + + + + | 2022-11-15 00:00 | theophylline 200 MG | [facility] | | | Extended Release Oral | | | | Capsule [Hunter-24] | | + + + + | 2014-01-04 00:00 | | [facility] | | | SULFAMETHOXAZOLE/TRIMETHOPR | | | | IM DS | | + + + + | 2014-01-04 00:00 | | [facility] | | | SULFAMETHOXAZOLE/TRIMETHOPR | | | | IM DS | | + + + + | 2016-02-17 00:00 | | [facility] | | | SULFAMETHOXAZOLE/TRIMETHOPR | | | | IM DS | | + + + + | 2016-02-17 00:00 | | [facility] | | | SULFAMETHOXAZOLE/TRIMETHOPR | | | | IM DS | | + + + + | 2014-01-04 00:00 | sulfamethoxazole 800 MG / | [facility] | | | trimethoprim 160 MG Oral | | | | Tablet [B | | + + + + | 2016-02-17 00:00 | sulfamethoxazole 800 MG / | [facility] | | | trimethoprim 160 MG Oral | | | | Tablet [B | | + + + + | 2022-09-01 00:00 | HYDROCODONE | [facility] | | | BIT/ACETAMINOPHEN | | + + + + | 2022-10-03 00:00 | HYDROCODONE | [facility] | | | BIT/ACETAMINOPHEN | | + + + + | 2022-11-15 00:00 | HYDROCODONE | [facility] | | | BIT/ACETAMINOPHEN | | + + + + | 2022-11-15 00:00 | acetaminophen 325 MG / | [facility] | | | hydrocodone bitartrate 5 MG | | | | Oral Tabl | | + + + + | 2014-11-05 00:00 | HYDROCODONE | [facility] | | | BIT/ACETAMINOPHEN | | + + + + | 2014-11-05 00:00 | HYDROCODONE | [facility] | | | BIT/ACETAMINOPHEN | | + + + + | 2014-11-05 00:00 | acetaminophen 325 MG / | [facility] | | | hydrocodone bitartrate 5 MG | | | | Oral Tabl | | + + + + | 2022-10-03 00:00 | HYDROCODONE | [facility] | | | BIT/ACETAMINOPHEN | | + + + + | 2022-10-03 00:00 | acetaminophen 325 MG / | [facility] | | | hydrocodone bitartrate 7.5 | | | | MG Oral Ta | | + + + + | 2022-09-01 00:00 | ALBUTEROL SULFATE | [facility] | + + + + | 2022-10-03 00:00 | ALBUTEROL SULFATE | [facility] | + + + + | 2022-11-15 00:00 | ALBUTEROL SULFATE | [facility] | + + + + | 2022-11-15 00:00 | [id number] 200 ACTUAT | [facility] | | | albuterol 0.09 MG/ACTUAT | | | | Metered Dose I | | + + + + | 2022-11-15 00:00 | HYDROMORPHONE HCL | [facility] | + + + + | 2022-11-15 00:00 | hydromorphone | [facility] | | | hydrochloride 2 MG Oral | | | | Tablet [Dilaudid] | | + + + + | 2022-11-15 00:00 | 120 ACTUAT budesonide 0.18 | [facility] | | | MG/ACTUAT Dry Powder | | | | Inhaler [Pul | | + + + + | 2022-09-01 00:00 | BUDESONIDE | [facility] | + + + + | 2022-10-03 00:00 | BUDESONIDE | [facility] | + + + + | 2022-11-15 00:00 | BUDESONIDE | [facility] | + + + + Problems + + + + | date | description | facility | + + + + | 2014-11-02 00:00 | Sepsis | [facility] | + + + + | 2014-11-02 00:00 | Sepsis | [facility] | + + + + | 2015-07-06 00:00 | Laceration of right lower | [facility] | | | leg with complication | | + + + + | 2015-07-06 00:00 | Laceration of right lower | [facility] | | | leg with complication | | + + + + | 2015-07-06 00:00 | History of conscious | [facility] | | | sedation | | + + + + | 2015-07-06 00:00 | History of conscious | [facility] | | | sedation | | + + + + | 2016 00:00 | Cellulitis of right foot | [facility] | + + + + | 2016 00:00 | Cellulitis of right foot | [facility] | + + + + | 2016-02-16 00:00 | Sepsis, Gram positive | [facility] | + + + + | 2016-02-16 00:00 | Morbid obesity with BMI of | [facility] | | | 40.0-44.9, adult | | + + + + | 2016-02-16 00:00 | Transaminitis | [facility] | + + + + | 2016-02-16 00:00 | Gram positive sepsis | [facility] | + + + + | 2016-02-16 00:00 | Gram positive sepsis | [facility] | + + + + | 2016-02-16 00:00 | Herpes zoster | [facility] | + + + + | 2016-02-16 00:00 | Herpes zoster | [facility] | + + + + | 2016-02-16 00:00 | Morbid obesity with body | [facility] | | | mass index (BMI) of 40.0 to | | | | 44.9 in adult | | + + + + | 2016-02-16 00:00 | Morbid obesity with body | [facility] | | | mass index (BMI) of 40.0 to | | | | 44.9 in adult | | + + + + | 2016-02-16 00:00 | Chronic pain syndrome | [facility] | + + + + | 2016-02-16 00:00 | Chronic pain syndrome | [facility] | + + + + | 2016-02-16 00:00 | Steroid-dependent asthma | [facility] | + + + + | 2016-02-16 00:00 | Steroid-dependent asthma | [facility] | + + + + | 2016-02-16 00:00 | Elevated transaminase | [facility] | | | measurement | | + + + + | 2016-02-16 00:00 | Elevated transaminase | [facility] | | | measurement | | + + + + | 2016-03-11 00:00 | Contusion of left shoulder | [facility] | | | | | + + + + | 2016-03-11 00:00 | Contusion of left shoulder | [facility] | | | | | + + + + | 2016-03-11 00:00 | Skin tear of left upper | [facility] | | | extremity | | + + + + | 2016-03-11 00:00 | Skin tear of left upper | [facility] | | | extremity | | + + + + | 2016-03-11 00:00 | Tear of skin of multiple | [facility] | | | sites of lower extremity | | + + + + | 2016-03-11 00:00 | Tear of skin of multiple | [facility] | | | sites of lower extremity | | + + + + | 2016-03-11 00:00 | Fall from ground level | [facility] | + + + + | 2016-03-11 00:00 | Fall from ground level | [facility] | + + + + | 2022-09-01 00:00 | UTI (urinary tract | [facility] | | | infection) | | + + + + | 2022-09-01 00:00 | Gastritis | [facility] | + + + + | 2022-09-01 00:00 | Gastritis | [facility] | + + + + | 2022-09-01 00:00 | Urinary tract infection | [facility] | + + + + | 2022-09-01 00:00 | Urinary tract infection | [facility] | + + + + [...] + + + | 2022-09-01 13:18 | 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
--- OUTSIDE RECORDS SUMMARY | ~2022-11-20 | XMS | Continuity of Care Document ---
Demographics + + + | Address | [address] | | | [place] [address] | + + + | Preferred Language | Unknown | + + + | Marital Status | | + + + | Sikh Affiliation | Unknown | + + + | Race | White | + + + | Ethnic Group | Not or | + + + Author + + + | Author | [facility] | + + + | Organization | [facility] | + + + | Address | [address] | | | [place] [address] | + + + | Phone | | + + + Care Team Providers + + + + | Care Buffer Automatic Name | Role | Phone | + [...] | (no date) | Ketamine | [facility] | (unknown) | | | | [facility] | | + + + + + | (no date) | Anaphylaxis | [facility] | (unknown) | | | | Hospital | | + + + + + | (no date) | Ketamine | [facility] | (unknown) | | | | Hospital | | + + + + + | (no date) | ketamine | [facility] | (unknown) | | | | Hospital | | + + + + + | (no date) | Ketamine | [facility] | (unknown) | | | | Hospital | | + + + + + | (no date) | Hallucinations | [facility] | (unknown) | | | | Hospital | | + + + + + | (no date) | Milk | [facility] | (unknown) | | | | Hospital | | + + + + + | (no date) | Milk | [facility] | (unknown) | | | | Hospital | | + + + + + | (no date) | milk | [facility] | (unknown) | | | | Hospital | | + + + + + | (no date) | ketamine | [facility] | (unknown) | + + [...] 2022-11-15 00:00 | No vaccine administered | [facility] | + + + + Medications + + + + | date | description | facility | + + + + | 2022-11-15 00:00 | OXYCODONE HCL | [facility] | + + + + | 2022-11-15 00:00 | oxycodone hydrochloride 5 | [facility] | | | MG Oral Tablet | | + + + + | 2016-03-11 00:00 | OXYCODONE | [facility] | | | HCL/ACETAMINOPHEN | | + + + + | 2016-03-11 00:00 | OXYCODONE | [facility] | | | HCL/ACETAMINOPHEN | | + + + + | 2016-03-11 00:00 | acetaminophen 325 MG / | [facility] | | | oxycodone hydrochloride 5 | | | | MG Oral Tab | | + + + + | 2022-11-15 00:00 | 120 ACTUAT albuterol 0.1 | [facility] | | | MG/ACTUAT / ipratropium | | | | bromide 0.0 | | + + + + | 2022-09-01 00:00 | IPRATROPIUM/ALBUTEROL | [facility] | | | SULFATE | | + + + + | 2022-10-03 00:00 | IPRATROPIUM/ALBUTEROL | [facility] | | | SULFATE | | + + + + | 2022-11-15 00:00 | IPRATROPIUM/ALBUTEROL | [facility] | | | SULFATE | | + + + + | 2022-09-01 00:00 | predniSONE | [facility] | + + + + | 2022-10-03 00:00 | predniSONE | [facility] | + + + + | 2022-11-15 00:00 | predniSONE | [facility] | + + + + | 2022-11-15 00:00 | prednisone 10 MG Oral | [facility] | | | Tablet | | + + + + | 2022-09-01 00:00 | CEFDINIR | [facility] | + + + + | 2022-09-01 00:00 | CEFDINIR | [facility] | + + + + | 2022-09-01 00:00 | cefdinir 300 MG Oral | [facility] | | | Capsule | | + + + + | 2022-09-01 00:00 | LORATADINE | [facility] | + + + + | 2022-10-03 00:00 | LORATADINE | [facility] | + + + + | 2022-11-15 00:00 | LORATADINE | [facility] | + + + + | 2022-11-15 00:00 | loratadine 10 MG Oral | [facility] | | | Tablet [Claritin] | | + + + + | 2014-11-05 00:00 | LEVOFLOXACIN | [facility] | + + + + | 2014-11-05 00:00 | LEVOFLOXACIN | [facility] | + + + + | 2014-11-05 00:00 | levofloxacin 500 MG Oral | [facility] | | | Tablet [Levaquin] | | + + + + | 2016-03-11 00:00 | CEPHALEXIN | [facility] | + + + + | 2016-03-11 00:00 | CEPHALEXIN | [facility] | + + + + | 2016-03-11 00:00 | cephalexin 250 MG Oral | [facility] | | | Capsule [Keflex] | | + + + + | 2022-09-01 00:00 | GABAPENTIN | [facility] | + + + + | 2022-10-03 00:00 | GABAPENTIN | [facility] | + + + + | 2022-11-15 00:00 | GABAPENTIN | [facility] | + + + + | 2022-11-15 00:00 | gabapentin 300 MG Oral | [facility] | | | Capsule | | + + + + | 2022-09-01 00:00 | IBUPROFEN | [facility] | + + + + | 2022-10-03 00:00 | IBUPROFEN | [facility] | + + + + | 2022-11-15 00:00 | IBUPROFEN | [facility] | + + + + | 2022-11-15 00:00 | ibuprofen 200 MG Oral | [facility] | | | Tablet | | + + + + | 2022-10-03 00:00 | ONDANSETRON | [facility] | + + + + | 2022-11-15 00:00 | ONDANSETRON | [facility] | + + + + | 2022-10-03 00:00 | ondansetron 8 MG | [facility] | | | Disintegrating Oral Tablet | | + + + + | 2022-11-15 00:00 | ondansetron 8 MG | [facility] | | | Disintegrating Oral Tablet | | + + + + | 2022-09-01 00:00 | predniSONE | [facility] | + + + + | 2022-10-03 00:00 | predniSONE | [facility] | + + + + | 2022-11-15 00:00 | predniSONE | [facility] | + + + + | 2022-11-15 00:00 | prednisone 20 MG Oral | [facility] | | | Tablet | | + + + + | 2022-09-01 00:00 | PREDNISONE | [facility] | + + + + | 2022-10-03 00:00 | PREDNISONE | [facility] | + + + + | 2022-11-15 00:00 | PREDNISONE | [facility] | + + + + | 2022-11-15 00:00 | prednisone 5 MG Oral | [facility] | | | Tablet | | + + + + | 2022-11-15 00:00 | SENNOSIDES | [facility] | + + + + | 2022-11-15 00:00 | sennosides, NURSING HOME 8.6 MG | [facility] | | | Oral Tablet | | + + + + | 2022-09-01 00:00 | VALACYCLOVIR HCL | [facility] | + + + + | 2022-10-03 00:00 | VALACYCLOVIR HCL | [facility] | + + + + | 2022-11-15 00:00 | VALACYCLOVIR HCL | [facility] | + + + + | 2022-11-15 00:00 | valacyclovir 1000 MG Oral | [facility] | | | Tablet | | + + + + | 2022-09-01 00:00 | TRAMADOL HCL | [facility] | + + + + | 2022-09-01 00:00 | TRAMADOL HCL | [facility] | + + + + | 2022-09-01 00:00 | THEOPHYLLINE ANHYDROUS | [facility] | + + + + | 2022-10-03 00:00 | THEOPHYLLINE ANHYDROUS | [facility] | + + + + | 2022-11-15 00:00 | THEOPHYLLINE ANHYDROUS | [facility] | + + + + | 2022-11-15 00:00 | theophylline 200 MG | [facility] | | | Extended Release Oral | | | | Capsule [Hunter-24] | | + + + + | 2014-01-04 00:00 | | [facility] | | | SULFAMETHOXAZOLE/TRIMETHOPR | | | | IM DS | | + + + + | 2014-01-04 00:00 | | [facility] | | | SULFAMETHOXAZOLE/TRIMETHOPR | | | | IM DS | | + + + + | 2016-02-17 00:00 | | [facility] | | | SULFAMETHOXAZOLE/TRIMETHOPR | | | | IM DS | | + + + + | 2016-02-17 00:00 | | [facility] | | | SULFAMETHOXAZOLE/TRIMETHOPR | | | | IM DS | | + + + + | 2014-01-04 00:00 | sulfamethoxazole 800 MG / | [facility] | | | trimethoprim 160 MG Oral | | | | Tablet [B | | + + + + | 2016-02-17 00:00 | sulfamethoxazole 800 MG / | [facility] | | | trimethoprim 160 MG Oral | | | | Tablet [B | | + + + + | 2022-09-01 00:00 | HYDROCODONE | [facility] | | | BIT/ACETAMINOPHEN | | + + + + | 2022-10-03 00:00 | HYDROCODONE | [facility] | | | BIT/ACETAMINOPHEN | | + + + + | 2022-11-15 00:00 | HYDROCODONE | [facility] | | | BIT/ACETAMINOPHEN | | + + + + | 2022-11-15 00:00 | acetaminophen 325 MG / | [facility] | | | hydrocodone bitartrate 5 MG | | | | Oral Tabl | | + + + + | 2014-11-05 00:00 | HYDROCODONE | [facility] | | | BIT/ACETAMINOPHEN | | + + + + | 2014-11-05 00:00 | HYDROCODONE | [facility] | | | BIT/ACETAMINOPHEN | | + + + + | 2014-11-05 00:00 | acetaminophen 325 MG / | [facility] | | | hydrocodone bitartrate 5 MG | | | | Oral Tabl | | + + + + | 2022-10-03 00:00 | HYDROCODONE | [facility] | | | BIT/ACETAMINOPHEN | | + + + + | 2022-10-03 00:00 | acetaminophen 325 MG / | [facility] | | | hydrocodone bitartrate 7.5 | | | | MG Oral Ta | | + + + + | 2022-09-01 00:00 | ALBUTEROL SULFATE | [facility] | + + + + | 2022-10-03 00:00 | ALBUTEROL SULFATE | [facility] | + + + + | 2022-11-15 00:00 | ALBUTEROL SULFATE | [facility] | + + + + | 2022-11-15 00:00 | [id number] 200 ACTUAT | [facility] | | | albuterol 0.09 MG/ACTUAT | | | | Metered Dose I | | + + + + | 2022-11-15 00:00 | HYDROMORPHONE HCL | [facility] | + + + + | 2022-11-15 00:00 | hydromorphone | [facility] | | | hydrochloride 2 MG Oral | | | | Tablet [Dilaudid] | | + + + + | 2022-11-15 00:00 | 120 ACTUAT budesonide 0.18 | [facility] | | | MG/ACTUAT Dry Powder | | | | Inhaler [Pul | | + + + + | 2022-09-01 00:00 | BUDESONIDE | [facility] | + + + + | 2022-10-03 00:00 | BUDESONIDE | [facility] | + + + + | 2022-11-15 00:00 | BUDESONIDE | [facility] | + + + + Problems + + + + | date | description | facility | + + + + | 2014-11-02 00:00 | Sepsis | [facility] | + + + + | 2014-11-02 00:00 | Sepsis | [facility] | + + + + | 2015-07-06 00:00 | Laceration of right lower | [facility] | | | leg with complication | | + + + + | 2015-07-06 00:00 | Laceration of right lower | [facility] | | | leg with complication | | + + + + | 2015-07-06 00:00 | History of conscious | [facility] | | | sedation | | + + + + | 2015-07-06 00:00 | History of conscious | [facility] | | | sedation | | + + + + | 2016 00:00 | Cellulitis of right foot | [facility] | + + + + | 2016 00:00 | Cellulitis of right foot | [facility] | + + + + | 2016-02-16 00:00 | Sepsis, Gram positive | [facility] | + + + + | 2016-02-16 00:00 | Morbid obesity with BMI of | [facility] | | | 40.0-44.9, adult | | + + + + | 2016-02-16 00:00 | Transaminitis | [facility] | + + + + | 2016-02-16 00:00 | Gram positive sepsis | [facility] | + + + + | 2016-02-16 00:00 | Gram positive sepsis | [facility] | + + + + | 2016-02-16 00:00 | Herpes zoster | [facility] | + + + + | 2016-02-16 00:00 | Herpes zoster | [facility] | + + + + | 2016-02-16 00:00 | Morbid obesity with body | [facility] | | | mass index (BMI) of 40.0 to | | | | 44.9 in adult | | + + + + | 2016-02-16 00:00 | Morbid obesity with body | [facility] | | | mass index (BMI) of 40.0 to | | | | 44.9 in adult | | + + + + | 2016-02-16 00:00 | Chronic pain syndrome | [facility] | + + + + | 2016-02-16 00:00 | Chronic pain syndrome | [facility] | + + + + | 2016-02-16 00:00 | Steroid-dependent asthma | [facility] | + + + + | 2016-02-16 00:00 | Steroid-dependent asthma | [facility] | + + + + | 2016-02-16 00:00 | Elevated transaminase | [facility] | | | measurement | | + + + + | 2016-02-16 00:00 | Elevated transaminase | [facility] | | | measurement | | + + + + | 2016-03-11 00:00 | Contusion of left shoulder | [facility] | | | | | + + + + | 2016-03-11 00:00 | Contusion of left shoulder | [facility] | | | | | + + + + | 2016-03-11 00:00 | Skin tear of left upper | [facility] | | | extremity | | + + + + | 2016-03-11 00:00 | Skin tear of left upper | [facility] | | | extremity | | + + + + | 2016-03-11 00:00 | Tear of skin of multiple | [facility] | | | sites of lower extremity | | + + + + | 2016-03-11 00:00 | Tear of skin of multiple | [facility] | | | sites of lower extremity | | + + + + | 2016-03-11 00:00 | Fall from ground level | [facility] | + + + + | 2016-03-11 00:00 | Fall from ground level | [facility] | + + + + | 2022-09-01 00:00 | UTI (urinary tract | [facility] | | | infection) | | + + + + | 2022-09-01 00:00 | Gastritis | [facility] | + + + + | 2022-09-01 00:00 | Gastritis | [facility] | + + + + | 2022-09-01 00:00 | Urinary tract infection | [facility] | + + + + | 2022-09-01 00:00 | Urinary tract infection | [facility] | + + + + [...] + + + | 2022-09-01 13:18 | HEAD BELLHOP CAPTAIN (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 | [facility] | | | SYSTEMIC STEROIDS | | + + + + | 2022-09-01 13:18 | ALLERGY TO MILK PRODUCTS | [facility] | + + + + | 2022-10-03 00:00 | Mass of pancreas | [facility] | + + + + | 2022-10-03 00:00 | Dyspepsia | [facility] | + + + + [...] + + | 2022-10-03 13:51 | OTHER HEAD BELLHOP CAPTAIN (CURRENT) | [facility] | | | DRUG [...] | 2022-11-15 00:00 | Laparotomy | [facility] | + + + + Results/Labs [...] 2022-11-15 00:00 | Never smoker | [facility] | + + + + Vital [...]
[~2022-11-20 14:39] MED LIST changes: +CEFDINIR300 MG PO; +DILAUDID2 MG PO; +HYDROCODON-ACE1 EA11 PO; +NORCO 7.5-3251 EACH PO; +ONDANSETRON ODT8 MG PO; +OXYCODONE HCL5 MG PO; +OXYCONTIN10 MG PO; +PREDNISONE5 MG PO; +SENNA8.6 MG PO; +TRAMADOL HCL50 MG PO
--- OUTSIDE RECORDS SUMMARY | 2022-11-20 14:42 | XMS ---
PreManage Notification: RENUKA SHARMA Security [employer] Events No recent Security Events currently on file CRITERIA MET - PDMP CARE PROVIDERS -Pio DMD Dentist: [employer] Current PHONE: [phone] [facility] has no Care Guidelines for this patient. [facility] VISIT COUNT (12 MO.) 3 [facility] TOTAL 3 NOTE: Visits indicate total known visits. ED/UCC VISIT TRACKING (12 MO.) 11/20/2022 14:39 [facility] [place] TYPE: Emergency COMPLAINT: - ABDOMINAL PAIN 10/03/2022 13:[address] [facility] [place] TYPE: Emergency COMPLAINT: - ABDOMINAL PAIN DIAGNOSES: - Allergy to milk products - Disease of pancreas, unspecified - Food additives allergy status - Other long term acute care registered nurse (current) drug therapy - Unspecified asthma, uncomplicated - Upper abdominal pain, unspecified 09/01/2022 13:[address] 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
[2022-11-20 18:57] VITALS: BP 133/90
--- NOTE | 2022-11-20 19:28 | NUR ---
REPORT RECEIVED FROM DAY SHIFT RN. PT LYING IN BED RESTING WITH EYES CLOSED. RESPIRATIONS EVEN. CALL LIGHT IN REACH. WHITE BOARD UPDATED.
--- NOTE | 2022-11-20 20:15 | NUR ---
PT ALERT AND ORIENTED. MOE AND ANESTHESIA IN ROOM TO DISCUSS SURGERY. SCHEDULED MEDS ADMIN PER EMAR. PT REPORTS ABD PAIN 02/26. PRN FOR PAIN ADMIN PER EMAR. SURGERY RN IN ROOM. PT OFF FLOOR TO OR AT THIS TIME.
--- NOTE | 2022-11-20 23:08 | NUR ---
11/20/222307 Kavitha Berry 2253: PT ARRIVES TO PACU WITH EYES CLOSED, OPA IN PLACE ON 6L O2 VIA MASK. PT DOES NOT AROUSE WITH VERBAL OR TACTILE STIMULATION. Sage COLES RN SECOND RN AND PALOMA ZAPIEN AT BEDSIDE.
[2022-11-21] VITALS (9 sets, daily range): BP systolic 103–132; BP diastolic 64–88
--- NOTE | 2022-11-21 00:37 | NUR ---
PT BACK TO FLOOR WITH [employer]ER ASSOCIATE. REPORT RECEIVED. PT ALERT AND ORIENTED. VS WNL. IVF INFUSING PER ORDER. ABD BINDER X [address] ABD DRESSING CDI. STEPHIE RLQ WITH SEROSANG DRAINAGE. DRAIN SPONGE REPLACED. PT C/O INCISIONAL PAIN. ICE PACK PROVIDED. DENIES NAUSEA. CPOX IN PLACE. PT WEANED OFF OXYGEN AT THIS TIME. SpO2 HIGH 90'S. HR 60'S. HUSSEIN PATENT WITH YELLOW URINE. PT REFUSING SCD'S. EDUCATION PROVIDED. PT VERBALIZES UNDERSTANDING. DAUGHTER IN ROOM. PT DENIES FURTHER NEEDS. CALL LIGHT IN REACH.
--- NOTE | 2022-11-21 01:34 | NUR ---
POST OP VS WNL. PT CAN NOT TOLERATE HOSPITAL BLOOD PRESSURE CUFF/MACHINE DUE TO PAIN. BP TAKEN WITH PERSONAL WRIST BP CUFF. PT REPORTS ABD PAIN 10/10. PRN FOR PAIN ADMIN PER EMAR. PT DENIES NAUSEA. IV ABX INFUSING PER ORDER. DAUGHTER AT BEDSIDE. NO FURTHER NEEDS.
--- NOTE | 2022-11-21 02:34 | NUR ---
POST OP VS OBTAINED. UPON ENTERING ROOM PT WITH EYES CLOSED. PT AWAKENS EASILY TO VOICE. SpO2 NOTED TO BE 85% ON RA. 2L/NC PLACED. SpO2 UP TO MID 90'S. PT DENIES NEEDS. CALL LIGHT IN REACH.
--- NOTE | 2022-11-21 03:54 | NUR ---
PT RESTING WITH EYES CLOSED. AWAKENS EASILY TO VOICE. POST OP VS WNL. PT REPORTS PAIN IS TOLERABLE. DENIES NAUSEA. ASSESSMENT UNCHANGED. ABD BINDER X [address] STEPHIE WITH 30 ML SEROSANG DRAINAGE. HUSSEIN PATENT WITH 350 ML YELLOW URINE. SpO2 99% ON 2L/NC. OXYGEN TITRATED TO 1L/NC. PT DENIES FURTHER NEEDS. CALL LIGHT IN REACH.
--- NOTE | 2022-11-21 06:40 | NUR ---
VS AND I&O OBTAINED. SCHEDULED MEDS ADMIN PER EMAR. PT REPORTS ABD PAIN 02/26. PRN FOR PAIN ADMIN. DENIES NAUSEA. STEPHIE DRESSING CHANGED DUE TO SEROSANG DRAINAGE. GOWN CHANGED. ABD BINDERS IN PLACE. ASSISTED PT TO REPOSITION IN BED. NO FURTHER NEEDS. CALL LIGHT IN REACH.
--- NOTE | 2022-11-21 07:16 | NUR ---
REPORT RECEIVED FROM RUSTY MARCUS RN, ALL QUESTIONS ANSWSERED. PT RESTING QUIETLY IN BED WITH EYES CLOSED, RESPIRATIONS EVEN AND UNLABORED. CALL LIGHT IN REACH.
--- NOTE | 2022-11-21 08:02 | NUR ---
PT CALL LIGHT ANSWERED. PT IS IN PAIN. RN NOTIFIED. CALL LIGHT WITHIN REACH
--- NOTE | 2022-11-21 08:51 | NUR ---
MORNING ASSESSMENT COMPLETE. PT C/O 10/10 PAIN AND NAUSEA, GIVEN PRN MEDICATIONS, SEE EMAR. ABD BINDER IN PLACE, INCISIONAL DRESSING CDI, STEPHIE DRAIN WITH SMALL AMOUNT SEROSANG DRAINAGE NOTED. ACTIVE BOWEL TONES THROUGHOUT. BRUISING TO ABD. PT REMAINS ON 1L NC, CPOX 95%. DISCUSSED PLAN OF CARE AND PAIN MANAGEMENT. PT DENIES FURTHER NEEDS AT THIS TIME. CALL LIGHT IN REACH.
--- NOTE | 2022-11-21 08:54 | HP ---
[facility] [address], [place] [address] Signed ADMISSION DATE: 11/20/2022 TIME: 07:30 p.m. PROBLEM: Incarcerated incisional hernia. HISTORY OF PRESENT ILLNESS: This 62-year-old white woman, who is recently known to me having undergone operation on November 15, 2022, which included partial omental resection, excision of a suspicious teniae epiploica as well as excision of a peritoneal nodule incorporated in prior abdominal wall fascia. She is known to have a pancreatic neoplasm of the midportion, highly suspect for malignancy. Final pathology is still pending regarding the recent tissue excised. It is recalled that at operation, she had very attenuated fascia and although extreme care was taken in closing the midline fascia with running PDS suture, quite obviously she has had separation of that fascial closure with herniation of small bowel contents into the subcutaneous space based on CT scan performed in the emergency room this afternoon. She was fully evaluated by Dr. Moore and is noted to have pain in her back as well as somewhat in the area in question currently. The patient has been taking pain medication including Dilaudid and oxycodone, but this pain has not been managed by that at all. It is notable that she was doing quite well upon her initial discharge to home. she has had no nuasea or vomiting and no sign of bowel obstruction proper. PAST MEDICAL HISTORY: Notable for longstanding asthma for which she has used prednisone long standing, including 10 mg prednisone daily currently. She has of course the advanced pancreatic neoplasm as previously described, and history of shingles currently not an issue. MEDICATIONS: Currently include hydromorphone, Zofran, hydrocodone with Tylenol, budesonide, Pulmicort Flexhaler, prednisone 10 mg daily, senna, and Combivent inhaler. She currently says she is feeling reasonably pain free, certainly not worse than she was. She has no shortness of breath and denies any chest pain. PHYSICAL EXAMINATION: Electronically Signed By: BERNADINE ROSA MD 11/21/22 0854 PATIENT NAME: RENUKA SHARMA HISTORY AND PHYSICAL DATE OF : 58 REPORT #: [id number] PHYSICIAN: BERNADINE ROSA MD PCP: CASTRO PAGE MD REPORT IS CONFIDENTIAL AND NOT TO BE RELEASED WITHOUT AUTHORIZATION [facility] [address], [place] [address] Signed GENERAL: An obese white woman who does not look systemically toxic at this time. Height is 5 feet 7 inches, weight 33.5 kg, and BMI of 2.08. HEENT: Trachea is midline. Mucous membranes are moist. CHEST: Shows normal respiratory excursion. She has no wheezing audibly. HEART: Regular. ABDOMEN: Scaphoid and flat. There is faint bruising in the region of the infraumbilical incision from recently. Palpation of the subcutaneous space is not clearly demonstrative of bowel though, it is noted easily on the CT scan. Extremties: very fragile and extensively bruised skin. LABORATORY STUDIES: Show normal urinalysis. White count 7.4, hematocrit 37.4, platelets 210,000. Electrolytes are normal. Creatinine is 0.75. Liver enzymes are normal also. Her CT scan findings were reviewed and report reviewed as well. The mid pancreatic mass is well known and well identified and liver metastases and peritoneal metastases are also identified. A moderate size left paraumbilical hernia containing a loop of small bowel demonstrating mild mesenteric edema, but no wall thickening or sign of obstruction is also noted. ASSESSMENT: The patient has had herniation through recent wound closure; the defect was small and great efforts were made for closure completely. The closure has failed and herniated small bowel is noted. Contributing factors include her long standing use of steroids for her COPD, underlying malignancy, her significant abdominal wall obesity, and attenuated fascia that was noted at the time of her initial operation. I have recommended operation with general anesthetic, reducing the hernia, and repairing the defect. Very likely this will involve implantation of mesh. As she had no enteric transgression during her operation previously, a typical Prolene mesh will likely be quite appropriate for her situation. The risk of bleeding, infection, recurrence, need for additional treatment were reviewed with her in detail. We are mindful that she has advanced stage IV pancreatic cancer for which palliative interventions have been considered by Dr. Trent and Dr. Bernal. This temporary setback should not materially impair plans for further palliative interventions regarding her pancreatic neoplasm. In any case her underlying malignancy is incurable and the goals of treatment are primarily palliation. Electronically Signed By: BERNADINE ROSA MD 11/21/22 0854 PATIENT NAME: RENUKA SHARMA HISTORY AND PHYSICAL DATE OF : 58 REPORT #: [id number] PHYSICIAN: BERNADINE ROSA MD PCP: CASTRO PAGE MD REPORT IS CONFIDENTIAL AND NOT TO BE RELEASED WITHOUT AUTHORIZATION [address] [address] Signed Bernadine Rosa MD JM/MODL /[id number] cc: MD Dr. Twan Le Copies: SIVAN BERNAL MD ~ Electronically Signed By: BERNADINE ROSA MD 11/21/22 0854 PATIENT NAME: RENUKA SHARMA HISTORY AND PHYSICAL DATE OF : 58 REPORT #: [id number] PHYSICIAN: BERNADINE ROSA MD PCP: CASTRO PAGE MD REPORT IS CONFIDENTIAL AND NOT TO BE RELEASED WITHOUT AUTHORIZATION
--- NOTE | 2022-11-21 09:00 | NUR ---
Spoke with Edel. She stats she lives with her rolanda. He assists her, cooks, cleans, and grocery shops. They live in an apartment behind her daughter Mayra's home. Pt has walker, wc, and nebulizer at home. She would like a new wc. Discussed criteria for insurance to pay for a wc. Pt states she can walk. I encouraged her to contact [place] and have family pickup a [employer] transport chair. Pt stating family just poured a concrete walk way for her. She now cannot get up her steps, she states they will build her a ramp. Pt then admits she is not walking well. I asked if you would like to go for rehab. She is unsure as she was to meet at the Cancer center today to have her first palliative radiation. She asks I call and let them know she is hospitalized. Pt again stating she would really like to get back to walking. We discussed SNFS and rehab. I let her know I probably won't be able to place her if she is wanting chemo. She states she has not seen Dr. May yet. Only the Cancer [facility]. Updated I will speak with Dr. Landry and see if he thinks she could hold off on chemo until she is able to rehab. She denies other needs. Would like to have therapy to get stronger.
--- NOTE | 2022-11-21 09:08 | NUR ---
IN ROOM WITH DR ROSA. PT STATES PAIN IS TOLERABLE AT THIS TIME. DISCUSSED PAIN MEDICATION CHANGES AND SCHEDULE. ALSO DISCUSSED GETTING OUT OF BED TO AMBULATE TO CHAIR TODAY, PT EXPRESSED HESITANCE YET VERBALIZED UNDERSTANDING. PT DENIES NEEDS AT THIS TIME. CALL LIGHT IN REACH.
--- NOTE | 2022-11-21 10:30 | NUR ---
I spoke with Dr. Landry. He states at this time he wants to hold PT. Pts tissue is very friable and he is concerned about the incision holding. He states its a personal choice for her. She could go with hospice and comfort care or to rehab and then seek treatment. I was able to speak with ODESSA at [facility]. Pt may have radiation treatment and be in the SNF.
--- NOTE | 2022-11-21 12:10 | NUR ---
PT AMBULATING IN [place] WITH PHYSICAL THERAPY.
--- NOTE | 2022-11-21 12:15 | NUR ---
PT C/O 02/26 PAIN. REQUESTED AND GIVEN PRN PAIN MEDICATION. PT DENIES FURTHER NEEDS AT THIS TIME. CALL LIGHT IN REACH.
--- NOTE | 2022-11-21 12:56 | OR ---
[facility] [address] [place], [place] [address] Signed DATE OF OPERATION: 11/20/2022 SURGEON: Bernadine Rosa MD PREOPERATIVE DIAGNOSES: 1. Stage IV pancreatic cancer with morbid obesity. 2. Incarcerated incisional hernia; recent mini laparotomy at umbilicus for biopsy of intraperitoneal malignant nodules. 3. History of prior umbilica hernia repair with mesh POSTOPERATIVE DIAGNOSES: 1. Fascial defect inferior to the umbilicus with herniation of small bowel to left deep subcutaneous space. 2. Extraordinary friability of mesenteric tissue with mesenteric bleeding; resultant segmental ischemia of small bowel. PROCEDURE: 1. Exploration of abdomen. 2. Evaluation of herniated small bowel in the left deep subcutaneous space. 3. Attempted control of multiple mesenteric bleeding sites ultimately with segmental small bowel resection with stapled [id number] functional end-to-end enteroenterostomy. 4. Repair of hernia of abdominal wall with implantation of Prolene mesh (Underlay technique, all this prolonged, complicated, difficult). ANESTHESIA: General endotracheal, Óscar Saucedo, MECHANIST. DRAIN: 7 mm Navneet. COMPLICATIONS: None. BLOOD LOSS: 300 mL. INDICATION: This 62-year-old white woman is a patient of Dr. Monroe and Dr. Bernal. She has been identified as having a mid pancreatic mass with hepatic metastases and findings highly suggestive of pancreatic cancer. A CT scan and PET scan recently performed showed Electronically Signed By: BERNADINE ROSA MD 11/21/22 1256 PATIENT NAME: RENUKA SHARMA OPERATIVE REPORT DATE OF : 58 REPORT #: [id number] PHYSICIAN: BERNADINE ROSA MD PCP: RADHA PAGE MD REPORT IS CONFIDENTIAL AND NOT TO BE RELEASED WITHOUT AUTHORIZATION [facility] [address] [place], [place] [address] Signed nodularity within the abdominal cavity and also in the region of the umbilicus. The patient has significant morbid obesity and has no current findings of jaundice or other obstructive pattern. 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 Closure of the abdomen was with meticulous care as she had underlying steroid dependency and significant obesity. She presented to the emergency room today with abdominal pain and a CT scan was obtained by Dr. Moore showing small bowel loops and in the soft tissue to the left of the umbilicus clearly consistent with early postoperative herniation of small bowel. There was no opening of the skin. The subcutaneous tissue was intact. There was no drainage of fluid to the subcutaneous space. She was admitted, given fluid resuscitation, IV antibiotics, anticipating exploration of the abdominal wall, reduction of hernia and closure of the abdominal fascia including hernia repair as appropriate. She understands the risk of bleeding, infection, need for other indicated procedures. Understanding that she wished to proceed. FINDINGS: Indeed there was a fair amount of small bowel in the subcutaneous space to the left of the umbilicus. The closure sutures superiorly were well positioned, but a fascial defect inferiorly and laterally was associated with impressive friability of the soft tissue. Her tissues were impressively friable such that the mesentery to this segment of small bowel outside the abdomen easily tore resulting in copious bleeding. Although hemostasis was attempted with suture ligation, cautery, and other methods, the tattered mesentery to the small bowel that had herniated was such that ischemic change of the bowel ensued and on that basis segmental resection was required. A [id number] functional end-to-end enteroenterostomy was accomplished. As regards, the abdominal wall fascia, it was impressively attenuated, friable and could easily be torn simply with manual pressure. Of course, all due care was maintained to preserve the fascia. Ultimately, the bowel was reduced into the abdominal cavity. The properitoneal space was identified, the peritoneum was closed over intraabdominal viscera and implantation of Prolene mesh in the pro peritoneal space undertaken. The mesh was secured with interrupted O prolene sutures with prolen mesh pledgets. Complete fascial closure was accomplished once again. An abdominal binder was additionally applied to support the abdominal wall. Blood loss was significant at 300 mL at least. She tolerated procedure well, nevertheless. DESCRIPTION OF PROCEDURE: The patient was brought to the operating room, given a general endotracheal anesthetic. Electronically Signed By: BERNADINE ROSA MD 11/21/22 1252 PATIENT NAME: RENUKA SHARMA OPERATIVE REPORT DATE OF : 58 REPORT #: [id number] PHYSICIAN: BERNADINE ROSA MD PCP: RADHA PAGE MD REPORT IS CONFIDENTIAL AND NOT TO BE RELEASED WITHOUT AUTHORIZATION [address] [address] Signed Preoperative antibiotic Ancef was given. Sequential compression device stockings were used and heparin subcutaneously administered. The abdomen had some ecchymosis in the region of the umbilicus and toward the left. Upon relaxation of the abdomen, palpation could reveal herniated bowel loops in the deep subcutaneous space. There was no separation of the skin. There was no evisceration or anything of that sort. After sterile preparation with chlorhexidine solution, the previous incision was opened. The incision was initially small, incorporating only the circum umbilical area. Dissection was carried through the dermis sharply exposing the thick abdominal wall fat. The thick abdominal wall pannus was somewhat adherent to the bowel loops and they were gently manipulated into the deep subcutaneous space to the left of the umbilicus. The fascial defect was ultimately identified. Closing sutures from the previous recent operation in the superior aspect were intact, but clearly a complete disruption inferiorly was noted. The fascial layers including the muscular layer of the rectus abdominis were impressively friable and easily made to bleed. Mobilization of the small bowel from the subcutaneous space was undertaken ultimately defining well the fascial defect as well as the small bowel. The minimal manipulation of the mesentery of the small bowel resulted in tearing and significant bleeding. Once the fascial edges and herniated bowel were completely, security of hemostasis to the small bowel mesentery was undertaken with electrocautery and well placed 3-0 silk sutures. There were at least 4-5 mesenteric tears, some of them transversely oriented, which was unexpected given gentle tissue handling. After reduction of the herniated bowel and repair of mesenteric tears and bleeding sites an area appeared to be ischemic in the midportion-- despite meticulous care made to provide hemostasis. It was deemed advisable to simply resect that segment of small bowel. On that basis, the mesentery corresponding to it was scored and mesenteric vessels were secured with 2.0 silk ties with meticulous care. A RUFINO stapling device was used to transect each end of the small bowel segment the small bowel segment. 3-0 silk suture was applied to the antimesenteric aspect of the small bowel proximally and distally. The staple line trimmed and each limb and a RUFINO 90 mm stapler device used to provide enteroenterostomy. The anvil sites were closed with interrupted running 3-0 Vicryl in the mucosal layer and interrupted 3-0 silk suture in the serosal layer. Stabilizing sutures with silk were undertaken at the bifurcation of the anastomosis area. Not mentioned previously was examination of the internal aspect of the small bowel, which showed good hemostasis and no sign of problem. The mesenteric defect was closed as best could be with interrupted 3-0 silk suture. The segment of small bowel was replaced to the abdominal cavity. Attention was turned to closure of the fascial defect. Electronically Signed By: BERNADINE ROSA MD 11/21/22 1256 PATIENT NAME: RENUKA SHARMA OPERATIVE REPORT DATE OF : 58 REPORT #: [id number] PHYSICIAN: BERNADINE ROSA MD PCP: RADHA PAGE MD REPORT IS CONFIDENTIAL AND NOT TO BE RELEASED WITHOUT AUTHORIZATION [address] [address] Signed The friability of the fascial edge to the peritoneum and subcutaneous tissue was hard to over state. Ultimately, the properitoneal space was able to be developed. Very friable and easily made to tear eritoneum was reapproximated with 2-0 Vicryl. A 6 inch piece of Prolene mesh was cut to a circular configuration and secured in the properitoneal space to the overlying fascia with interrupted 0 Prolene sutures with Prolene pledgets. Despite the friability of the tissue, reasonable purchase of good tissue laterally was able to be undertaken. the remaining fascial edges were able to be completely reapproximated by conclusion. The Subcutaneous layer of the abdomen was able to be irrigated more fully and through a separate stab incision, a 7 mm flat navneet drain was placed into the wound over the fascia. Dante's layer was reapproximated with interrupted 2-0 vicryl suture. The skin was then reapproximated with running subcuticular 3-0 Vicryl. All due care was made to extubate the patient as deeply as possible to avoid straining which was largely successful. Ultimately, there was some coughing for which the wound was externally supported... no overt disruption was noted. Steri strips were applied as was an acticoat silver dressing. She was ultimately extubated. As a Lewis catheter had not been placed at the outset of the operation, it was then placed. The patient was ultimately extubated and transferred to the recovery room in good condition. Blood loss was at least 300 mL possibly as high as 500 mL. Sponge, counts were reported as correct x3. The operation was prolonged and complicated lasting nearly 4 hours... MD TERE Mesa/ANUP /[id number] cc: Patrick Monroe MD, PH.D. MD Radha Waller MD Shaila Copies: PATRICK MONROE Electronically Signed By: BERNADINE ROSA MD 11/21/22 1256 PATIENT NAME: RENUKA SHARMA OPERATIVE REPORT DATE OF : 58 REPORT #: [id number] PHYSICIAN: BERNADINE ROSA MD PCP: RADHA PAGE MD REPORT IS CONFIDENTIAL AND NOT TO BE RELEASED WITHOUT AUTHORIZATION [address] [address] Signed SIVAN BERNAL MD ~ Electronically Signed By: BERNADINE ROSA MD 11/21/22 1256 PATIENT NAME: RENUKA SHARMA OPERATIVE REPORT DATE OF : 58 REPORT #: [id number] PHYSICIAN: BERNADINE ROSA MD PCP: RADHA PAGE MD REPORT IS CONFIDENTIAL AND NOT TO BE RELEASED WITHOUT AUTHORIZATION
--- NOTE | 2022-11-21 14:03 | NUR ---
PT c/o 02/26 pain, requested and given prn pain medications, see EMAR. Pt denies further needs at this time. Call light in reach.
[2022-11-21] MEDS ORDERED: PREDNISONE10 MG PO (16:08)
[2022-11-21] MEDS ORDERED: ONDANSETRON ODT8 MG PO (16:14)
[2022-11-21] MEDS ORDERED: PULMICORT FLE180 MCG INH (17:05)
[2022-11-21] MEDS ORDERED: IPRAT-ALBUT 0.5-3 ML INH (17:06)
[2022-11-21] MEDS ORDERED: PREDNISONE5 MG PO (17:06)
--- NOTE | 2022-11-21 17:10 | NUR ---
ATTEMPTED TO GET PT OUT OF BED TO CHAIR. PT ABLE TO GET LEGS OUT OF BED AND WHEN ATTEMPTING TO SIT UP UNABLE TO DUE TO PAIN. PT AT THAT TIME REFUSED TO ATTEMPT AGAIN, DISCUSSED IMPORTANCE OF GETTING OUT OF BED AND MOVING. PT VERBALIZED UNDERSTANDING. PT STATES PAIN WAS "TOO MUCH" AND SHE WOULD ATTEMPT AT ANOTHER TIME. DISCUSSED TURNING AND REPOSITIONING EVERY 2 HOURS, PT TURNED TO LEFT SIDE WITH PILLOW UNDER RIGHT SIDE. PT GIVEN PRN OFRIMEV. DENIES FURTHER NEEDS AT THIS TIME. CALL LIGHT IN REACH.
--- NOTE | 2022-11-21 21:15 | NUR ---
PT ASSESSED AND MEDICATIONS GIVEN. PT RESTING IN BED. VSS. IVF INFUSING PER ORDER. PAIN MEDICATION GIVEN. HUSSEIN DRAINING WELL PER GRAVITY. STEPHIE DRAIN IN PLACE. SAFETY PRECAUTIONS MAINTAINED. CALL LIGHT WITHIN REACH. WILL CONTINUE TO MONITOR.
[2022-11-22 05:10] VITALS: BP 125/61
--- NOTE | 2022-11-22 05:10 | NUR ---
PT RESTING IN BED. VITALS AND IS AND OS COMPLETE. PT PROVIDED ICE PACKS AND ICE WATER. HUSSEIN EMPTIED. NO NEEDS, CALL LIGHT WITHIN REACH
--- NOTE | 2022-11-22 07:34 | NUR ---
REPORT RECEIVED FROM BENOIT ROSE. PT RESTING IN BED, IN SUPINE POSITION. PT DECLINES ELEVATION OF HEAD OF BED. PT REQUESTS PAIN MEDICATION FOR 8/10 PAIN IN UPPER ABDOMEN. SEE MAR FOR MEDICATION GIVEN. PT REQUESTS "MY MORNING THINGS." PT ASKED TO CLARIFY AND IS UNABLE TO STATE WHAT SHE WOULD LIKE, PT STATES "YOU JUST NEED TO READ MY MIND." PT ADIVSED THAT NURSING STAFF CAN HELP WITH ANYTHING SHE WOULD LIKE, PT WAVES HER SHIRT/GOWN AT THIS RN. PT ASKED IF SHE WOULD LIKE HER GOWN CHANGED. PT STATES "YES, CAN'T YOU SEE THAT." GOWN CHANGED. DR JAMES CALLED AND UPDATED ON PTS PAIN MEDICAITON NEEDS AND STATES TO CONSULT PHARMACY REGARDING A POSSIBLE SAW SUPERINTENDENT, PHARMACIST CALLED, NO ANSWER AT THIS TIME, AWAITING CALL BACK. ORDERS GIVEN TO DC HUSSEIN CATHETER, ORDERS ENTERED, REPEAT BACK PERFORMED. CATHETER DC'D PER PROTOCOL. PT CONITNUES RESTING IN BED. UPDATED ON PLAN OF CARE. NO ADDITIONAL NEEDS AT THIS TIME. PT TOELRATING 1L O2 BYNC WITH OXGYEN SATRAUTION OF 93%. CALL LIGHT WITHIN REACH. BED RAILS UP.
--- NOTE | 2022-11-22 07:56 | NUR ---
SPOKE WITH PHARMACIST, JENNA, WHO RECCEOMENDS PT BE STARTED ON HOME DOESES OF PAIN MEDICATION. DR. JAMES CALLED AND UPDATED. STATES HE WILL BE IN TO SEE PT SOON. NO NEW ORDERS AT THIS TIME.
--- NOTE | 2022-11-22 08:08 | NUR ---
MORNING ASSESSMENT AND MEDICATION DUE. PT CONTINUES RESTING IN SUPINE POSITION. PT REPORTS PAIN IS NOW 6/10 IN UPPER ABDOMEN. PT UPDATED ON PLAN OF CARE FOR PAIN CONTROL. WAITING FOR DR. JAMES CALLED AND UPDATED AND STATES HE WILL PLACE NEW ORDERS FOR PAIN MEDICATION AFTER HE ROUNDS WITH PT. PT ALERT AND OREINTED TO ALL. PT REMAINS WEAK AND REFUES ATTEMPTS TO GET OUT OF BED. PT DECLINES OFFERS FOR ASSISTANCE UP TO CHAIR THIS MORNING. UNABLE TO PERFORM BMAT ASSESSMENT AT THIS TIME PT REFUSES ACTIVITY. LUNG SOUNDS CLEAR BUT FOR LEFT LOWER LOBE WHERE EXPIRATORY WHEEZE CAN BE HEARD. NO COUGH SEEN. PT DELCIENS I.S. USE. HEART TONES REGULAR. EDEMA TO LOWER LEGS REMAINS, PT STATES "OH YEAH, THATS BEEN THERE A WHILE." SKIN TO BLE GREGORIO WITH AREAS OF VENOUS STATIS SEEN. PT REFUESES SCD'S, EDUCATION DONE, PT CONTIUES TO REFUSE. PT DENIES NUMBNESS AND TINGLING IN EXTREMITIES. MIDLINE INCISION DRESSING C/D/I WITH NO DRAINAGE SEEN. BRUISING AROUND INCISION SITE REMAINS. STEPHIE DRAIN HAS SMALL AMOUNT OF SEROUSANGUINOUS DRIANGE IN BULB AND GAUZE AT INCERTION SITE IS ~75% SATURATED. ABDOMINAL BINDERS IN PLACE X2. BOWEL TONES TYMPANIC. ABOMDEN SOFT. PT TENDER WITH ANY TOUCH, INCLUDING WHEN LEGS AND FEET ARE TOUCHED. CLEAR LIQUID TRY DELIVERED FOR BREAKFAST. NO ADDITIONAL REQUESTS OR COMPLAINTS. CALL LIGHT WITHIN REACH. BED RAILS UP. PT RESTING WITH EYES CLSOED.
[2022-11-22 08:56] VITALS: BP 137/77
--- NOTE | 2022-11-22 09:36 | NUR ---
DOCTOR OF NAPRAPATHY REPORTS PT REQUESTS PAIN MEDICATION, THIS RN TO ROOM. PT AND HER SIGNFICANT OTHER (SO) HAVE REMOVED ABDOMINAL BINDERS AND STEPHIE DRAIN IS STRETCHED TO THE MAX, PULLING OUT OF SKIN. PTS SO STATES "WELL YOU'RE NOT DOING ANYTHING SO I'M GOING TO FIX IT." EDUCATION DONE WITH PT AND SO. PRN PAIN MEDICAITON GIVEN. PT ASSISTED WITH REPOSITIONING IN BED. ABDOMINAL BINDERS STRAIGHTENED AND REPLACED TO ABDOMEN. DR. JAMES TO BEDSIDE AND UPDATED ON PT STATUS, SITUATION, PAIN CONTROL. VERBAL ORDERS GIVEN TO CHANGED STEPHIE DRESSING. STEPHIE DRAIN DRESSING CHANGED WITH DR JAMES. ORDERS GIVEN TO REMOVE MIDLINE INCICION SURGICAL DRESSING, REMOVED USING ADHESIVE REMOVER. NO SKIN TEARS NOTED. EDGES OF INCISION WELL APROXIMATED WITH STERI STRIPS IN PLACE. ABDOMINAL BINDERS BACK IN PLACE. DRESSING TO IV SITE LOOSE, CHANGED PER PROTOCOL. IV ABX GIVEN. NO ADDITIONAL REQEUSTS OR COMPLAINTS. BED RAILS UP. CALL LIGHT WITHIN REACH. SO AT BEDSIDE.
--- NOTE | 2022-11-22 10:19 | NUR ---
MEDICATION VARIFIED BY PHARMACIST. PT REPORTS ONGOING 10/10 PAIN IN UPPER ABDOMEN. SEE MAR FOR MEDICATION GIVEN. PT NOTED TO SMILE AND LAUGH WITH SO. PT CONTINUES TO DECLINE TIME UP OUT OF BED OR ACTIVITY. ICE WATER REFILLED. IV FLUID RATE ADJUSTED. NO ADDITIONAL REQUESTS OR COMPLAINTS AT THIS TIME. PT VISITING WITH SO. CALL LIGHT WITHIN REACH. BED RAILS UP.
--- NOTE | 2022-11-22 11:10 | NUR ---
HOURLY ROUNDING: PT RESTING IN SUPINE POSITION IN BED WITH EYES CLOSED. RESPIRATIONS EVEN AND UNLABORED. PT AWKANES TO MOVEMENT IN THE ROOM. REPORTS 5/10 PAIN IN ABDOMEN AND DENIES NEED FOR ADDITIONAL PAIN MEDICATION AT THIS TIME. PT REPORTS SHE WOULD LIKE NURSING STAFF TO "TAKE THE PAIN AWAY." PT UPDATED ON AVALIABLE PAIN MEDICAITONS AND CONTINUES TO DENIY NEED FOR PAIN MEDICAITON AT THIS TIME. OXYGEN SATURATION AT 95% ON 1L O2 BY NC. NO ADDITIONAL REQUESTS OR COMPLAINTS. CALL LIGHT WITHIN REACH. BED RAILS UP.
--- NOTE | 2022-11-22 12:12 | NUR ---
PT CALL LIGHT ON. PT REQUESTS PAIN MEDICAITON FOR 11/26 PAIN. SEE MAR FOR MEDICATION GIVEN. PT HAS REMOVED OXYGEN TUBINGAND OXGYEN SATURATION DROPS TO 85%. PT PLACED BACK ON 1L O2 BY WV WITH O2 SATUARTIOSN IMPROVING TO 94%. PT REPORTS SHE WAS ABLE TO AMBULATE TO THE RESTOOM AND IT WAS "AWFUL." PT DECLINES TIME UP TO CHAIR. NO ADDITONAL REQUESTS OR COMPLAINTS. CALL LIGHT WITHIN REACH. BED RAILS UP.
[2022-11-22 13:05] VITALS: BP 126/72
--- NOTE | 2022-11-22 13:05 | NUR ---
THIS RN TO ROOM TO CHECK ON PT. PT RESTING WITH EYES CLOSED, RESPIRATIONS EVEN AND UNLABORED. OXYGEN SATURATION 92% ON 1L O2 BY NC. PT ALLOWED TO REST. CALL LIGHT WITHIN REACH. BED RAILS UP.
--- NOTE | 2022-11-22 13:09 | NUR ---
PT IN BED. VITALS AND IS AND OS COMPLETE. PT DENIED RESTROOM NEEDS. CALL LIGHT WITHIN REACH
--- NOTE | 2022-11-22 14:02 | NUR ---
AFTERNOON ASSESSMENT AND MEDICATION DUE. PT CONTINUES RESTING IN SUPINE POSITION. PT DECLINES TIME UP TO CHAIR OR OUT OF BED. PT ENCAROUGED TO SHOWER THIS AFTERNOON AND REPORTS "MAYBE LATER." WILL CONTINUE TO ENCORAUGE PT TO SHOWER. PT REPORTS 5/10 PAIN IN UPPER ABDOMEN THAT IS "DULL AND ALWAYS THERE." SEE MAR FOR MEDICATION GIVEN. PT ALERT AND ORIENTED TO ALL. BMAT ASSESSMENT PERFORMED. PT BMAT LEVEL 3 WITH SAFETY QUING 1 PERSONAS ASSIST, AND LINE AND TUBE MANAGEMENT. LUNG SOUNDS CLEAR. NO COUGH HEARD. PT REMAINS ON 1L O2 BY NM WITH OXGYEN SATURATION OF 96%. PT AGREES TO I.S. USE REACHING 1500ML X5. BLE EDEMA UNCHANGED. ABDOMEN REMAINS SOFT. TENDER TO TOUCH. BOWEL TONES ACTIVE. MIDLINE INCISION C/D/I WITH EDGES WELL APROXIMATED AND STERI STRIPS INTACT. STEPHIE DRAIN EMPTIED OF 30ML RED DRAINAGE. EDUCATION DONE WITH PT REGARDING HOW TO EMPTY STEPHIE DRAIN. BRUSIING CONTINUES TO BE SEEN AROUND MIDLINE INCISION. NO ADDITIONAL NEEDS AT THIS TIME. CALL LIGHT WITHIN REACH. BED RAILS UP.
--- NOTE | 2022-11-22 15:17 | NUR ---
HOURLY ROUNDING: PT RESTING IN BED WITH EYES CLOSED. AWAKENS TO MOVEMENT IN THE ROOM. PT REPORTS 4/10 PAIN IN ABDOMEN AND REQUESTS ADDITINAL PAIN MEDICATION. PT AGREES TO SHOWER "IN A BIT" PRN PAIN MEDICATION GIVEN (SEE MAR). PT REMAINS ON 1L O2 BY NC WITH OXYGEN SATURATION OF 94%. NO ADDITIONAL REQUESTS OR COMPLAINTS. CALL LIGHT WITHIN REACH. PARK WORKER TO BEDSIDE TO ASSIST PT WITH SHOWER.
--- NOTE | 2022-11-22 16:10 | NUR ---
PT FINISHED WITH SHOWER. PT REPORTS PAIN REMAINS AT 4/10 WITH ACTIVITY OF SHOWER. PT DENIES NEED FOR ADDITIONAL PAIN MEDICAITON AT THIS TIME. PT BACK TO BED WITH 2 PERSON ASSIST. ABDOMINAL BINDERS BACK IN PLACE. NEW CPOX STICKER APPLIED. IV FLUIDS RESUMED. PT IS ABLE TO BOOST SELF UP IN BED. NO ADDITIONAL REQUESTS OR COMPLAINTS. CALL LIGHT WITHIN REACH. BED RAILS UP. FAMILY AT BEDSIDE.
--- NOTE | 2022-11-22 16:40 | NUR ---
Spoke with Edel and her daughter. Updated her chart was sent to [facility] and I have not had a response at this time. Daughter stating pt has to be mobile at home for family to care for her. Pt was able to walk Saturday. I will contact [facility] at [facility] to check tomorrow if they will have a bed to rehab this pt short term.
--- NOTE | 2022-11-22 17:07 | NUR ---
HOURLY ROUNDING: PT RESTING IN BED, SUPINE, VISING WITH CASE MANAGEMENT.PT REPORTS 5/10 PAIN AND STATES SHE IS OK TO WAIT FOR HER NEXT PAIN MEDICATION DUE TIME. PT DENIES ADDITIONAL REQUESTS OR COMPLAINTS. OXGYEN SATURATION 95% ON 1L O2 BY NC. CALL LIGHT WITHIN REACH. BED RAILS UP. FAMILY AT BEDSIDE.
--- NOTE | 2022-11-22 17:26 | NUR ---
PT POST OP DAY 2 AFTER HERNIA REPAIN AND BOWEL RESSCTION. PT UP TO RESTROOM AND SHOWER THIS SHIFT WITH 1 PERSON ASSIST. PT TOLERATING CLEAR LIQUID DIET WITH MINIMAL INTAKE. PT UNSTEADY ON FEET AND VERY PAINFUL WITH AMBULATION. NEW PAIN MEDICAITON REGMINE STARTED THIS SHIFT WITH GOOD RESULTS AND PAIN BETTER CONTROLLED. PT REMAINS ON 1L O2 BY NC RELATED TO DESATURATIONS WHEN RESTING AND WIHT PAIN MEDICAITON. EDMEA REMAINS IN BLE. PT DENIES NASUEA THIS SHIFT. HUSSEIN CATHETER DC'D THIS SHIFT AND PT IS VOIDING QUANITTY SUFFICENT. DRESSING REMOVED FROM MIDLINE INCISION WITH ONLY STERI STRIPS LEFT INPLACE, EDGES WELL APROXIMATED, ABDOMINAL BINDERS X2 IN PLACE. STEPHIE DRAIN SHOWS RED FLUID IN SMALL TO SCANT AMOUNTS, DRESSING ARROUND STEPHIE SITE CHANGED THIS SHIFT. IV FLUID RATE DECREASED THSI SHIFT. PT USES CALL LIGHT AND MAKES NEEDS KNOWN.
[2022-11-22 17:49] VITALS: BP 144/84
--- NOTE | 2022-11-22 18:00 | NUR ---
PT CALL LIGHT ON. PT YAKELIN PAIN MEDICAITON FOR 8 ABDOMINAL PAIN. SEE MAR FOR MEDICATION GIVEN. IV ABX GIVEN, IV ASSESSED, WNL. NO S/S OF PHLEBITIS SEEN. PT DECLINES REPOSITIONING. NO ADDITIONAL REQUESTS OR COMPLAINTS. CALL LIGHT WITHIN REACH. BED RAILS UP.
--- NOTE | 2022-11-22 18:38 | NUR ---
IN TO ANSWER CALL LIGHT. PT REQUESTING TO USE RESTROOM. SBA WITH FWW FROM BED TO RESTROOM. PT HAS SLOW STEADY GAIT. EDUCATED PT ON PULL CORD ON BATHROOM WALL AND TO PULL CORD WHEN FINISHED. PT VERBALIZES UNDERSTANDING.
--- NOTE | 2022-11-22 19:06 | NUR ---
PT CALL LIGHT ON. PT REQUESTS ADDITIONAL PAIN MEDICATION FOR 8/10 ABDOMINAL PAIN. PT RECIENTLY UP TO RESTROOM WITH RANCH COOK AND BACK TO BED. IV ASSESSED. LEAKING. IV DC'D PER PROTOCOL. NEW IV STARTED PER PROTOCOL, BRISK BLOOD RETURN NOTED. PT TOELRATING 1L O2 BY NM WITH OXGYEN SATUARTIONS ABOVE 92%. PT VISITING WITH SIGNIFICANT OTHER. NO ADDITIONAL REQUESTS OR COMPLAINTS. CALL LIGHT WITHIN REACH. BED RAILS UP.
[2022-11-22 21:04] VITALS: BP 120/67
--- NOTE | 2022-11-22 21:15 | NUR ---
PT ASSESSED AND MEDICATIONS GIVEN. ABDOMINAL INCISIONS INTACT. [address] STEPHIE DRAIN IN PLACE. IVF INFUSING PER ORDER. SAFETY PRECAUTIONS MAINTAINED. CALL LIGHT WITHIN REACH. WILL CONTINUE TO MONITOR.
--- NOTE | 2022-11-22 21:21 | NUR ---
Patient called to use the restroom. Assisted patient with IV pole into bathroom with a walker. Assisted back to bed. Took vitals and charted I&Os. Patient walked slowly and did fine. Back in bed she was able to pull herself up in bed, slowly. Oxygen back in place, IV plugged in, and cpox connected. Call light is within reach and nothing else is needed at this time.
--- NOTE | 2022-11-22 23:03 | NUR ---
Patient called to use restroom. Assisted her to and from bathroom. She positioned herself up in bed. She became shortness of breath after returning from bathroom and her oxygen level dropped to 80%. She used her personal inhaler at bedside. Call light is within reach. Nothing else is needed at this time.
[2022-11-23 05:05] VITALS: BP 120/60
--- NOTE | 2022-11-23 06:16 | NUR ---
PT RESTED SOME THROUGHOUT THE SHIFT. PRN DILAUDID PO AND IV GIVEN THROUGHOUT SHIFT. PT ABLE TO AMBULATE TO BATHROOM. IVF INFUSING PER ORDER. ABDOMINAL INCISION INTACT. ABDMONINAL BINDERS ON X2. VSS. SAFETY PRECAUTIONS MAINTAINED. CALL LIGHT WITHIN REACH. WILL CONTINUE TO MONITOR.
--- NOTE | 2022-11-23 07:13 | NUR ---
REPORT RECEIVED FROM BENOIT ROSE. PT UP TO RESTROOM WITH 1 PERSON ASSIST AND BACK TO BED. PT TOLEARTING ACTIVITY WITH MOVEMENTS MORE SMOOTH AND COORDINATED COMPARED TO YESTERADY. PT REPORTS 5/10 PAIN THAT IS "NOT BAD, JUST BECAUSE I GOT UP AND MOVED ARROUND." PT REPORTS HER CURRENT PAIN MEDICAITON REGIMINE WIHT A MEDICAITO EVERY 2 HOURS IS WORKING MUCH BETTER FOR HER. PT DENIES NEED FOR ADDITIONAL PAIN MEDICATION. PT WEANED TO ROOM AIR HER OXGYEN SATURATION IS 97% ON ROOM AIR AFTER GETTING UP TO THE RESTROOM. CPOX REMAINS IN PLACE. DR JAMES TO BEDSIDE, UPDATED ON PT STATUS AND ASSESSMENT. NEW ORDERS PLACED. PT DENIES ADDITIONAL REQUESTS OR COMPLAINTS AT THIS TIME. CALL LIGHT WITHIN REACH. BED RAILS UP.
--- NOTE | 2022-11-23 07:41 | NUR ---
MORNING ASSESSMENT AND MEDICATION DUE. PT CONTINUES RESTING IN BED WITH HEAD OF BED ELEVATED NOW TO 30 DEGREES. PT REPORTS PAIN REMAINS AT 5/10 AT THIS TIME BUT REQUESTS HER "8 O'CLOCK DILAUDID." PT VERBALIZES UNDERSTANDING OF PLAN OF CARE. EDUCATION DONE WITH PT REGARDING ACTIVITY AND NEED FOR SHOWER, MOVEMENT AND TIME OUT OF BED TODAY. PT VERBALIZES UNDERSTANDING AND AGREES TO TRY INCREASED ACTIVITY TODAY. PT DOES CONTINUE TO DECLINE TIME OUT OF BED RIGHT NOW, DECLINING TIME UP TO CHAIR OR SITTING ON THE EDGE OF THE BED. PT ALERT AND ORIENTED TO ALL. HEART TONES REGULAR. LUNG SOUNDS CLEAR. PT CONTINUES TO TOELARTE ROOM AIR WITH OXGYEN SATUARTIONS ABOVE 92%. I.S. USE DEMONSTRATED WITH PT REACHING 1250ML X10. EDEMA CONTINUES TO BLE, UNCHANGED. PT CONTINUES TO DECLINE SCD'S. ABDOMEN REMAIN SOFT BUT TENDER TO TOUCH. BOWEL TONES ACTIVE IN LOWER QUADRANTS, HYPOACTIVE IN UPPER QUADRANTS. MIDLINE INCISION SHOWS EDGES WELL APROXIMATED WITH STERI STRIPS INTACT. STEPHIE DRAIN INTACT WITH 30ML RED DRAINAGE REMOVED FROM DRAIN BULB AT THIS TIME. NO DRESSING IN PLACE OVER STEPHIE INCERTION SITE, DRESSING FOUND ON RESTROOM FLOOR. SITE LEAKING SMALL AMOUNTS OF SEROUS ANGUINOUS FLUID. NEW DRESSING PLACED. MORNING MEDICATIONS GIVEN. IF FLUID RATE ADJUSTED. PT DENIES ADDITIONAL REQUESTS OR COMPLAINTS CALL LIGHT WITHIN REACH. ICE WATER REFILLED.
--- NOTE | 2022-11-23 09:15 | NUR ---
MEDICATION ARRIVED FROM PHARMACY. GIVEN ORDERED. INFUSING WITH IV FLUIDS. PT REPORTS 3-4/10 PAIN IN ABDOMEN THAT IS WELL CONTROLLED. PT VISITING WITH ABOUT HOME CHORES. PT DENIES ADDITIONAL REQUESTS OR COMPLAINTS. CALL LIGHT WIHTIN REACH. BED RAILS UP.
[2022-11-23 09:28] VITALS: BP 123/60
--- NOTE | 2022-11-23 09:32 | NUR ---
patient in bed visting with family. vitals and i/o's completed. call light within reach.
--- NOTE | 2022-11-23 09:59 | NUR ---
MEDICATION DUE. PT RESTING IN BED, DRINKING CHICKENBROTH. PT REPORTS 3/10 PAIN THAT IS WELL CONTROLLED, PT STATES SHE STILL WANTS THE DILAUDID THAT IS DUE AT THIS TIME. SEE MAR FOR MEDICATION GIVEN. PT CONTINUES TO DECLINE TIME UP TO CHAIR. NO ADDITIONAL REQUESTS OR COMPLAINTS AT THIS TIME. CALL LIGHT WITHIN REACH. BED RAILS UP.
--- NOTE | 2022-11-23 11:44 | NUR ---
PT IN BED. FAMILY MEMBER AT BEDSIDE. BOTH SEEMED IN GOOD SPIRITS. DENIED NEEDS. I LEFT WHEN CALLED.
--- NOTE | 2022-11-23 11:46 | PATH ---
[facility] [address] [place], [place] [address] Signed SPECIMEN(S): A PORTION OF SMALL BOWEL SPECIMEN SOURCE: A. PORTION OF SMALL BOWEL CLINICAL HISTORY: Incisional hernia, abdominal pain. FINAL PATHOLOGIC DIAGNOSIS: Portion of small bowel: - Segment of benign small bowel. JVR:[id number]:[id number] MICROSCOPIC EXAMINATION: Histologic sections of all submitted blocks are examined by light microscopy. These findings, together with the gross examination, support the pathologic diagnosis. GROSS DESCRIPTION: The specimen, labeled and designated "Pina, portion of small bowel," is received in formalin and consists of a previously opened, unoriented portion of small bowel that measures 14 cm in length and 1.5 cm in diameter with attached yellow-joy, focally congested mesenteric fat tissue up to 2.5 cm. The serosal surface is pink-joy, smooth. The mucosal surface is pink-joy and corrugated. No masses or abnormalities are grossly identified. Cassette Summary: (A1) Resection margins, shaved, one inked (A2) Small bowel, random sections JS (under the direct supervision of a pathologist) The Gross Description was prepared using a voice recognition system. The report was reviewed for accuracy; however, sound-alike word errors, addition and/or deletions may occur. If there is any question about this report, please contact Client Services. PERFORMING LABORATORY: Technical component was performed by [facility], [address] [place] [id number] (CLIA# [id number]). Professional interpretation was performed by [facility], [address] [place] [id number] (CLIA#: [id number]). PATIENT NAME: RENUKA SHARMA PATHOLOGY DATE OF : 58 REPORT #: [id number] PHYSICIAN: [facility] PCP: CASTRO PAGE MD REPORT IS CONFIDENTIAL AND NOT TO BE RELEASED WITHOUT AUTHORIZATION [address] [address] Signed Diagnostician: David Syed MD Pathologist Electronically Signed 11/23/2022 Copies: ~ PATIENT NAME: RENUKA SHARMA PATHOLOGY DATE OF : 58 REPORT #: [id number] PHYSICIAN: [facility] PCP: CASTRO PAGE MD REPORT IS CONFIDENTIAL AND NOT TO BE RELEASED WITHOUT AUTHORIZATION
--- NOTE | 2022-11-23 11:52 | NUR ---
THIS RN TO ROOM TO CHECK ON PT. PT ENCORAUGED TO GET UP OUT OF BED. PT AGREES "IF I CAN HAVE MORE PAIN MEDICINE FIRST." PT REPORST 5/10 PAIN IN UPPER ABDOMEN. SEE MAR FOR MEDICATION GIVEN. PT UP RESTROOM WITH STAND BY ASSIST, AND FWW. ANISHA CARE DONE. STEPHIE DRAIN EMPITED OF 30ML RED FLUID. PT THEN UP TO AMBULATE INTO HALLWAY. PT AMBULATES ONE SMALL LAP WITH STAND BY ASSIST, AND FWW UP TO CHAIR. LUNCH TRAY DELIVERED. NO ADDITIONAL REQUESTS OR COMPLAINTS. CALL LIGHT WITHIN REACH.
--- NOTE | 2022-11-23 12:00 | NUR ---
Spoke with pt and she feels ok. Let her know I have not received a reply from [facility] at this time for her to rehab. I will call them. Pt cont. to want to rehab prior to work up for her cancer.
--- NOTE | 2022-11-23 12:44 | NUR ---
THIS RN TO ROOM TO CHECK ON PT. PT REPORTS SHE IS "A ONE" MEANING REALLY GREAT. PT REPORTS 3/10 ABDOMINAL PAIN AND THAT SHE ENJOY BEING UP TO THE CHAIR AND LOOKING OUT THE WINDOW. PT DENIES REQUESTS OR COMPLAINTS. OXYGEN SATURATION 90-92% ON ROOM AIR. CALL LIGHT WITHIN REACH.
--- NOTE | 2022-11-23 13:39 | NUR ---
AFTERNOON ASSESSMENT AND MEDICATION DUE. PT CALL LIGHT ON. PT REQUESTS TO GET BACK TO BED FROM CHAIR. LUNG SOUNDS ASSESSED WHILE PT IS UP TO CHAIR. EXPIRATORY WHEEZES HEART THROUGHOUT. PT NOTED TO BE 88-90% ON ROOM AIR. BREATHIGN TREATMENT GIVEN. PT RETURNED TO 1L O2 BY NC TO MAINTAIN OXYGEN SATURATIONS ABOVE 92%.PT UP TO RESTROOM AND VOIDS WIHTOUT ISSUE. STAND BY ASSIST WITH FWW. ANISHA CARE PER PT. PT BACK TO BED AND REPORTS 8/10 PAIN IN ABDOMEN. SEE MAR FOR MEDICATION GIVEN. PT REMAINS ALERT AND ORIENTED TO ALL. GENERALIZED WEAKNESS CONTINUES ALTHOUGH PT IS ABLE TO AMBLUATE WITH FWW. ABDOMEN REMAINS SOFT BUT TENDER. STEPHIE DRAIN NOTABLY PUTTING OUT 115ML SEROUS ANGUINOUS FLUID OVER THE LAST 4 HOURS. SITE REMAINS WNL WITH MINIMAL LEAKING, SMALL AMOUNT OF RED DRAINAGE SEEN ON GAUZE. MIDLINE INCISION REMAINS C/D/I WITH STERI STRIPS IN PLACE AND EDGES WELL APROXIMATED. ABDOMINAL BINDERS IN PALCE X2. BOWEL TONES ACTIVE. PT REPORTS SHE HAS PASSED "A LITTLE" SUMMER. NO BOWEL MOVEMENT SEEN YET. PT DENIES ADDITIONAL NEEDS AT THIS TIME. CALL LIGHT WIHTIN REACH. BED RAILS UP.
[2022-11-23 14:22] VITALS: BP 101/51
--- NOTE | 2022-11-23 15:11 | NUR ---
THIS RN TO ROOM TO CHECK ON PT. PT RESTING WITH EYES CLOSED. RESPIRATIONS EVEN AND UNLABORED. OXGYEN SATURATIONS OF 97% ON 1L O2 BY NC. PT ALLOWED TO REST. BED RAILS UP. CALL LIGHT WITHIN REACH.
--- NOTE | 2022-11-23 16:25 | NUR ---
PT FINISHED WITH SHOWER. STAND BY ASSIST WITH FWW BACK TO BED. PT ASSISTED WITH GETTING INTO BED. OXGYEN SATUARTION 88% UPON ARRIVAL TO BED. PT PLACED BACK ON 1L 2O BY NC TO MAINTAIN OXGYEN SATUARTIONS ABOVE 92%. PT REPORTS "3, 4, 5" OUT OF 10 PAIN AND REQUESTS HER IV PAIN MEDICATION. SEE MAR FOR MEDICATION GIVEN. IV FLUIDS RESUMED. PT DENIES ADDITIONAL REQUESTS OR COMPLAINTS. CALL LIGHT WITHIN REACH. BED RAILS UP. CPOX IN PLACE.
--- NOTE | 2022-11-23 16:35 | NUR ---
PT POST OP DAY 3 AFTER HERNIA REPAIN AND BOWEL RESSCTION. PT UP TO RESTROOM AMBULATION IN RATLIFF, CHAIR AND SHOWER THIS SHIFT WITH 1 PERSON ASSIST. PT TOLERATING CLEAR LIQUID DIET WITH IMPROVING INTAKE. PT UNSTEADY ON FEET AND VERY PAINFUL WITH AMBULATION. PRN PAIN MEDICATOIN GIVEN Q2 HOURS THIS SHIFT WITH GOOD PAIN CONTROL. .PT REMAINS ON 1L O2 BY NC RELATED TO DESATURATIONS WHEN RESTING AND WITH PAIN MEDICAITON. EDMEA REMAINS IN BLE. PT DENIES NASUEA. MID LINE INCISION CONTINUES TO HAVE NO DRAINAGE, STERI STRIPS IN PLACE AND EDGES WELL APROXIMATED, ABDOMINAL BINDERS X2 IN PLACE. STEPHIE DRAIN SHOWS RED FLUID IN MODERATE AMOUNTS, DRESSING ARROUND STEPHIE SITE CHANGED THIS SHIFT. IV FLUID RATE DECREASED THIS SHIFT. PT VOIDING QUANITY SUFFICIENT. PT USES CALL LIGHT AND MAKES NEEDS KNOWN.
--- NOTE | 2022-11-23 17:20 | NUR ---
THIS RN TO ROOM TO CHECK ON PT. PT RESTING IN BED, SIPPING ON CLEAR LIQUIDS. PT REPORTS 3/10 PAIN THAT IS WELL CONTROLLED AT THIS TIME. EDUCATION DONE WITH PT AND HER REGARDING ACTIVITY, PLAN OF CARE, BOWEL ACTIVITY, AND PAIN CONTROL. PT AND FAMILY STATE THEIR QUESTIONS HAVE BEEN ANSWERED AND VERBALIZE UNDERSTANDING. PT DENIES ADDITIONAL REQUESTS OR COMPLAINTS. CALL LIGHT WITHIN REACH. BED RAILS UP.
[2022-11-23 17:52] VITALS: BP 116/80
--- NOTE | 2022-11-23 18:23 | NUR ---
MEDICATION DUE. PT REQUESTS PAIN MEDICATION FOR 6/10 PAIN IN UPPER ABDOMEN, SEE MAR FOR MEDICAITON GIVEN. PT TOELRATING 1L O2 BY NC WITH OXGYEN SATURATIONS 94-96%. PT UP TO RESTROOM WITH STAND BY ASSIST AND FWW. ANISHA CARE PER PT. PT UP TO AMBUALTE IN RATLIFF X1 SMALL LAP. PT TOLEARTES AMBULATION WELL, CONTINUES TO HAVE PAIN WITH GETTING UP AND DOWN OUT OF BED. PT BACK TO ROOM ADN BACK TO BED. POSITIONED FOR COMFORT. NO ADDITIONAL REQEUSTS OR COMPLAINTS. CALL LIGHT WITHIN REACH. BED RAILS UP.
[2022-11-23 20:19] VITALS: BP 114/56
[2022-11-24 06:06] VITALS: BP 116/80
--- NOTE | 2022-11-24 06:39 | NUR ---
PT RESTED SOME DURING THE SHIFT. PRN IV AND PO DILAUDID GIVEN FOR PAIN. PT ABLE TO AMBULATE IN ROOM AND TO THE BATHROOM. STEPHIE DRAIN HAD A TOTAL OF 60ML DURING SHIFT. VSS. IVF INFUSING PER ORDER. SAFETY PRECAUTIONS MAINTAINED. CALL LIGHT WITHIN REACH. WILL CONTINUE TO MONITOR.
--- NOTE | 2022-11-24 07:04 | NUR ---
REPORT RECEIVED FROM B[facility] ROSE. PT RESTING IN BED, HEAD OF BED ELEVATED TO 30 DEGREES. PT WORKING ON I.S. INDEPENDANTLY. PT REPORTS 0/10 PAIN STATING "I FEEL NOTHING." PT DENIES ADDITIONAL NEEDS AT THIS TIME. CALL LIGHT WIHTIN REACH. BED RAILS UP.
--- NOTE | 2022-11-24 07:27 | NUR ---
MORNING ASSESSMENT DUE. PT RESTING IN BED, SEMIFOWLER WITH HEAD OF BED AT 20 DEGREES. PT REPORTS 2/10 PAIN. PT CONTINUES TO STATE SHE WANTS PAIN MEDICATION EVERY TWO HOURS STATES "WELL YOU KNOW HOW IT JUST MAKES YOUR BRAIN FEEL GOOD." PT EDUCATION DONE REGARDING PAIN MEDICATION, USES, LIMITS, RISKS AND SIDE EFFECTS. PT CONTINES TO STATE SHE WANTS TO STAY ON CURRENT PAIN MEDICATION REGMINE. PT ENCOARUGED TO GET UP OUT OF BED, PT DECLINES AT THIS TIME, ADDITIONAL EDUCATION DONE. PT STATES "MAYBE LATER." PT ALERT AND ORIENTED TO ALL. HEART TONES REGULAR. LUNG SOUNDS CLEAR. PT REMAIN ON 1L O2 BY LA WITH OXYGEN SATURATION OF 96%. PT DEMONSTARTES USE OF I.S. REACHING 1000-1250ML X10. PT CONTINEUS TO DECLINE SCD'S. ABDOMEN SOFT BUT REMAINS TENDER. BOWEL TONES ACTIVE. PT REPORTS SHE CONTINUES TO PASS GAS. PT REPORTS SHE "DRANK LOTS OF WATER LAST NIGHT." MIDLINE INCISION WNL WITH EDGES WELL APROXIMATED AND STERI STRIPS INTACT. MILD ERYTHEMA SEEN AROUND EDGES OF INCISION WELL CONTINUED BRUISING (UNCHANGED). NO DRAINAGE PRESENT. STEPHIE DRAIN IN PLACE WITH ~20% SEROUS ANGUINOUS DRAINAGE ON GAUZE DRESSING. SMALL AMOUNT OF SEROSANGUINOUS DRAINAGE ALSO SEEN IN BULB. ABDOMINAL BINDERS X2 IN PLACE. EDEMA UNCHANGED TO BLE. FRAGILE SKIN UNCHANGED. PT DENIES ADDITIONAL REQUESTS OR COMPLAINTS. CALL LIGHT WITHIN REACH. BED RAILS UP.
--- NOTE | 2022-11-24 08:19 | NUR ---
PT CALL LIGHT ON. PT REQUESTS PAIN MEDICATION. PT RATES PAIN AT 3/10 AND STATES 'I JUST DON'T WANT TO STOP GETTING THE MEDICINES." PT POINTS TO UPPER ABDOMEN WHEN DESCRIBING PAIN. SEE MAR FOR MEDICATION GIVEN. PT WATCHING TV. CONTINUES TO DECLINE TIME UP TO CHAIR. NO ADDITIONAL REQUESTS OR COMPLAINTS. CALL LIGHT WITHIN REACH. BED RAILS UP.
--- NOTE | 2022-11-24 09:15 | NUR ---
HOURLY ROUNDING: PT CONTINUES RESTING IN BED. REPORTS FEELING "LOOPY." PT WATCHING TV AND SMILING. PT SHAKES HER HEAD "NO" WHEN ASKED ABOUT PAIN AND THEN STATES "WELL RIGHT HERE (POINTING TO LEFT UPPER ABDOMEN) SOMETIMES IT YOU KNOW." CLARIFIED ADN PTS AGREES THAT THIS AREA HURTS FROM TIME TO TIME. PT ADVIED TO GET UP OUT OF THE BED WHILE HER PAIN CONTROL IS GOOD. PT DECLINES FIRMLY. NO ADDITIONAL REQUESTS OR COMPLAINTS AT THIS TIME. CALL LIGHT WITHIN REACH. BED RAILS UP.
[2022-11-24 10:09] VITALS: BP 126/79
--- NOTE | 2022-11-24 10:21 | NUR ---
MEDICATION DUE. PT REPORTS 8/10 PAIN IN UPPER LEFT ABDOMEN. REQUESTS PAIN MEDICATION. SEE MAR FOR MEDICATION GIVEN. PT REPORTS THAT THE DELAY IN HER PREVIOUS DOSE OF IV DILAUDID HAS CAUSED HER PAIN TO BE "MUCH WORSE." EDUCATION DONE WITH PT, PT DECLINES ADDITIONAL DISCUSSION ABOUT PAIN MEDICATION. PT UP TO RESTROOM WITH 1 PERSON ASSIST AND FWW. PT VOIDS WITHOUT ISSUE. ANISHA CARE PER PT. ORAL CARE PER PT. MANAGER ENVIRONMENTAL SERVICES AT BEDSIDE WORKING WITH PT. DR. JAMES UPDATED ON PT STATUS. NEW ORDERS GIVEN FOR PHYSICAL THERAPY. ORDERS ENTERED, REPEAT BACK PERFORMED. NO ADDITIONAL REQUESTS OR COMPLAINTS AT THIS TIME. CALL LIGHT WITHIN REACH.
--- NOTE | 2022-11-24 11:10 | NUR ---
PT UP TO ABMLUATE WITH CLAM DIGGER AND NOW BACK TO BED. PT REPORTS PAIN CONTINUES AT 610 STATING "IT'S JUST MY PANCREASE UP HERE." POINTING TO UPPER LEFT ABDOMEN. PT ALSO REPORTS SHE FEELS SHE NEEDS TO BURP. PT ADVISED TO TRY SITTING UP TO ASSIST WITH BURPING. PT DECLINES TIME UP TO CHAIR. DECLINES SITTING POSITION IN BED PREFERING TO STAY SUPINE. PT STATES SHE WANTS TO "JUST LYE HERE AND WAIT IT OUT." NO ADDITIONAL REQUESTS OR COMPLAINTS. OXYGEN SATURATION 93% ON 1L O2 BY NC. BED RAILS UP. CALL LIGHT WITHIN REACH.
--- NOTE | 2022-11-24 12:06 | NUR ---
HOURLY ROUNDING: PT RESTING IN SUPINE POSITION. PT REPORTS PAIN HAS DECRASED DOWN TO 2/10 WITH REPOSITIONING OF THE ABDOMINAL BINDER. PT REPORTS SHE STILL WANTS HER PAIN MEDICATION STATING "DEFINATLY!" EDUCATION DONE WITH PT AND PT STATES "I'M NOT GOING WITH OUT IT." PT ALSO STATES SHE DOES NOT WANT TO SPACE OUT DOSING. PT TOELRATING 1L O2 BY NC WITH OXYGEN SATUATION OF 95%. PT DECLINS TIME UP TO CHAIR. DECLINES TIME UP TO SHOWER. NO ADDITONAL REQUESTS OR COMLAINTS. CALL LIGHT WITHIN REACH. BED RAILS UP.
--- NOTE | 2022-11-24 12:30 | NUR ---
THIS RN TO ROOM TO CHECK ON PT. PT RESTING IN BED IN SUPINE POSITION. PT REPORTS 0/10 PAIN. PT DENIES NAUSEA. PT CONTINUES TO DECLINE TIME OUT OF BED. NO ADDITIONAL REQUESTS OR COMPLAINTS. CLEAR LIQUID TRAY DELIVERED FOR LUNCH. CALL LIGHT WITHIN REACH. BED RAILS UP.
[2022-11-24 13:05] VITALS: BP 122/72
--- NOTE | 2022-11-24 13:28 | NUR ---
AFTERNOON ASSESSMENT AND MEDICAITON DUE. PT RESTING IN BED, LAUGHING AT TV PROGRAM. PT ALERT AND OREINTED TO ALL. PT REPORTS 3-4/10 PAIN AND REQUESTS HER AFTERNOON PAIN MEDICATION. SEE MAR FOR MEDICATION GIVEN. HEART TONES REGULAR. LUNG SOUNDS CLEAR BUT FOR OCCATIONAL EXPRATORY WHEEZE IN LEFT LOWER LOBE. PT REMAINS ON 1L O2 BY CT WITH OXYGEN SATURATION OF 97% AT THIS TIME. PT DEMONSTRATES USE OF I.S. REACHING 1000-1250ML X5. BLE EDEMA UNCHANGED. ABDOMEN REMAINS SOFT BUT TENDER ESPICIALLY IN UPPER QUADRANTS. PT REPORTS MILD DISTENTION "ABOUT 10%" TO UPPER ABDOMINAL AREA. BOWEL TONES ACTIVE THROUGHOUT. MIDLINE INCISION REMAINS C/D/I WITH NO DRAINAGE PRESENT, STERI STRIPS INTACT, AND EDGES WELL APROXIMATED. PT DENEIS NAUSEA. PT REPORTS SHE CONTINUES TO PASS GAS. STEPHIE DRAIN WNL, GAUZE DRESSING CHANGED, MINIMAL NEW DRAINAGE SEEN ~25% SATURATED. SMALL AMOUNT OF SEROUSANGUINOUS DRAINAGE SEEN IN STEPHIE BULB. PT DECLINES TIME UP TO CHAIR OR AMBULATION AT THIS TIME. MEDICAITON GIVEN. NO ADDITIONAL REQUESTS OR COMPLAINTS AT THIS TIME. CALL LIGHT WITHIN REACH. BED RAILS UP.
--- NOTE | 2022-11-24 14:27 | NUR ---
HOURLY ROUNDING: PT RESTING IN BED, LAUGHING AT TV PROGRAM. PT REPORTS 0/10 PAIN AND STATES "TODAY IS SO MUCH BETTER." PT CONTINUES TO DECLINE TIME OUT OF BED. NO ADDITIONAL REQUESTS OR COMPLAINTS. CALL LIGHT WITHIN REACH. BED RAILS UP.
--- NOTE | 2022-11-24 15:32 | NUR ---
pT FINISHED WITH SHOWER. PT BACK TO BED AND ABDOMINAL BINDERS PLACED AGAIN. IV FLUIDS RESTARTED. PT REPOR TS 0/10 PAIN EVEN DURING SHOWER STATING "THAT'S THE BEST IT'S BEEN IN SO LONG." PT DENIES ADDITIONAL REQUESTS OR COMPLAINTS. CONTINUES TO DECLINE TIME UP TO CHAIR OR AMBULATION. BED RAILS UP. CALL LIGHT WITHIN REACH. OXGYEN SATUARTION 90% ON ROOM AIR AFTER SHOWER. 96% ON 1L O2 BY NC.
--- NOTE | 2022-11-24 16:04 | NUR ---
PT UP TO AMBUALTE WITH PHYSICAL THERAPIST. IV SALINE LOCKED FOR AMBLUATION. PT REPORTS 0/10 PAIN. NO ADDITIONAL NEEDS AT THIS TIME.
--- NOTE | 2022-11-24 16:33 | NUR ---
PT FINISHED WITH PHYSCIAL THERAPY AND BACK TO ROOM. PT REPORTS SHE WAS ABLE TO AMBULATE AND CLIMB STAIRS WITH "NO PROBLEM." PT DENIES PAIN AND NAUSEA AT THIS TIME. PT DENIES NEED FOR ADDITIONAL PAIN MEDICAITON. IV FLUSHED AND IV FLUIDS RESTARTED. PT DEMONSTRATES USE OF I.S. REACHING 1250ML X5 AND THEN TAKES PHONE CALL FROM FAMILY. NO ADDITIONAL REQUESTS OR COMPLAINTS. CALL LIGHT WITHIN REACH. BED RAILS UP.
--- NOTE | 2022-11-24 16:37 | NUR ---
PT POST OP DAY 4 AFTER HERNIA REPAIN AND BOWEL RESSCTION. PT UP TO RESTROOM AMBULATION IN RATLIFF, WITH PHYSICAL THERAPY, TO CHAIR AND SHOWER THIS SHIFT WITH STAND BY ASSIST AND FWW. PT TOLERATING CLEAR LIQUID DIET WITH IMPROVING INTAKE. PRN PAIN MEDICATOIN GIVEN Q2 HOURS THIS SHIFT WITH IMPROVING PAIN CONTROL. PT REMAINS ON 1L O2 BY NC RELATED TO DESATURATIONS WHEN RESTING AND WITH PAIN MEDICAITON. EDMEA REMAINS IN BLE. PT DENIES NASUEA. MID LINE INCISION CONTINUES TO HAVE NO DRAINAGE, STERI STRIPS IN PLACE AND EDGES WELL APROXIMATED, ABDOMINAL BINDERS X2 IN PLACE. STEPHIE DRAIN SHOWS RED FLUID IN SMALL AMOUNTS, DRESSING ARROUND STEPHIE SITE CHANGED THIS SHIFT. IV FLUID RATE DECREASED THIS SHIFT. PT VOIDING QUANITY SUFFICIENT. PT USES CALL LIGHT AND MAKES NEEDS KNOWN.
[2022-11-24 17:27] VITALS: BP 118/72
--- NOTE | 2022-11-24 17:37 | NUR ---
PT CALL LIGHT ON. PT REQUESTS PAIN MEDICATION FOR 4-5/10 PAIN IN UPPER LEFT ABDOMEN. SEE MAR FOR MEDICATION GIVEN. IV ASSESSED, LEAKING. IV DC'S PER PROTOCOL. GAUZE AND COBAN APPLIED. NEW IV STARTED PER PROTOCOL TO LEFT FORARM. MEDICATION GIVEN. IV FLUIDS INFUSING. PT TOELARTED WELL. PT TOELARTING 1L O2 BY NC WITH OXGYEN SATURATION 94-96%. PT DENIES ADDITIONAL REQEUSTS OR COMPALITNS. CALL LIGHT WITHIN REACH. BED RAILS UP.
--- NOTE | 2022-11-24 18:14 | NUR ---
HOURLY ROUNDING: PT UP TO RESTROOM WITH STAND BY ASSIST AND FWW. PT VOIDS WITHOUT ISSUE. ANISHA CARE PER PT. STAND BY ASSIST BACK TO BED. PT POSITIONS SELF IN BED. PT REPORTS 3/10 PAIN AND DENIES NEED FOR ADDTIONAL PAIN MEDICATIONS AT THIS TIME. PT REPORTS "I'M WINDING DOWN" AND IS FEELING READY TO SLEEP. NO ADDITONAL REQUESTS OR COMPLAINTS. CALL LIGHT WITHIN REACH. BED RAILS UP.
--- NOTE | 2022-11-24 19:05 | NUR ---
SHIFT REPORT RECEIVED FROM [facility] BENOIT JAUREGUI AT BEDSIDE. pt AWAKE AND RESTING IN BED, IV SITE WNL, FLUIDS INFUSING DIRECTED. ABD BINDER X2 IN PLACE, STEPHIE DRAIN TO RLQ. NO NEEDS OR CONCERNS VERBALIZED, CALL LIGHT IN REACH. 1LNC IN PLACE, SPO2 93%, HR 68.
[2022-11-24 20:12] VITALS: BP 128/64
--- NOTE | 2022-11-24 20:15 | NUR ---
pt ASSISTED BACK TO BED, SCD'S RESUMED AND CPOX IN PLACE. VSS, pt REPORTS 9/10 PAIN AND STATES, "YEAH I THINK MISSING THAT DOSE EARLIER TODAY REALLY AFFECTED IT". pt INTERACTIVE WITH INTERNATIONAL MARKETING SPECIALIST AND MAKES JOKES WITH STAFF AND WHO IS ALSO IN ROOM. NO CHANGE TO ABD APPEARNACE, 20MLS EMPTIED FROM STEPHIE DRAIN. BOWEL TONES ACTIVE. CALL LIGHT IN REACH, NO FURTHER NEEDS. FRESH CUP OF ICE AND ICE WATER PROVIDED.
--- NOTE | 2022-11-24 21:04 | NUR ---
Reinforced patient IV line with tape to avoid occlusion. No further needs at this time.
--- NOTE | 2022-11-24 23:37 | NUR ---
ROUNDED ON pt, pt AWAKE AND RESTING IN BED. REMAINS ON 1LNC, RR EVEN AND UNLABORED. NO DISTRESS NOTED. CALL LIGHT IN REACH.
--- NOTE | 2022-11-25 00:46 | NUR ---
pt RESTING IN BED WITH EYES CLOSED, ON 1LNC. RR EVEN AND UNLABORED. CPOX SHOWS SPO2 97%, HR 60'S. NO DISTRESS OR OUTWARD SIGNS OF PAIN NOTED. CALL LIGHT IN REACH. WILL CONTINUE TO MONITOR. IV SITE REMAINS WNL.
--- NOTE | 2022-11-25 01:57 | NUR ---
assessment complete, pt awake and recently returned from the bathroom with help from catechist. pt reports 7-8/10 pain, pt educated that because she was sleeping earlier pt was allowed to rest and not be woken up for available midnight prn iv pain medication as pt appeared comfortable and did not call carpet journeyman. 8mg po dilaudid given-see emar.
--- NOTE | 2022-11-25 03:10 | NUR ---
REPORT GIVEN TO BENOIT JAUREGUI, BENOIT JAUREGUI TO TAKE OVER pt CARE AT THIS TIME AND ACT PRIMARY RN.
--- NOTE | 2022-11-25 03:23 | NUR ---
REPORT RECEIVED FROM BENOIT CUADRA. THIS RN ASSUMING CARE OF PT. PT CALL LIGHT ON. PT CRYING IN PAIN AND REPORTS NEED TO USE THE RESTROOM. STAND BY ASSIST WITH FWW UP TO RESTROOM. PT VOIDS WITHOUT ISSUE. PT ASSISTED BACK TO BED. REPORTS 10/10 PAIN IN UPPER LEFT ABDOMINAL QUADRANT. SEE MAR FOR MEDICATION GIVEN. PT REMAIN SON 1L O2 BY NC WITH OXGYEN SATURATION OF 92-94%. HEAD OF BED ELEVATED TO 20 DEGREES. PT REPORTS PAIN IS SUBSIDING WITH MEDICATION. NO ADDITIONAL REQUESTS OR COMPLAINTS. CALL LIGHT WITHIN REACH.B ED RAILS UP
--- NOTE | 2022-11-25 04:22 | NUR ---
THIS RN TO ROOM TO CHECK ON PT. PT RESTING IN SUPINE POSITION. PT REPORTS 8/10 PAIN IN LUQ THAT IS "GETTING BETTER." HEAT PACK OFFERED AND ACCEPTED, PROVIDED. PT DENIES ADDITIONAL REQUESTS OR COMPLAINTS. CALL LIGHT WITHIN REACH. BED RAILS UP.
[2022-11-25 04:55] VITALS: BP 139/82
--- NOTE | 2022-11-25 04:56 | NUR ---
PT CALL LIGHT ON. PT REQUESTS ASSISTANCE UP TO RESTROOM. STAND BY ASSIST WITH FWW UP TO RESTROOM. PT VOIDS WITHOUT ISSUE. ANISHA CARE PER PT. STAND BY ASSIST BACK TO BED. PT REPORTS PAIN IS NOW5/10 AND "GETTING BETTER." VITAL SIGNS STABLE. NO ADDITIONAL REQUSTS OR COMPLAINTS. CALL LIGHT WITHIN REACH. BED RAILS UP.
--- NOTE | 2022-11-25 05:52 | NUR ---
MEDICATION DUE. PT REPORTS 2/10 PAIN IN LUQ STATING "I NEED THE MEDICINE ANYWAY." SEE MAR FOR MEDICATION GIVEN. IV REMAINS WNL, NO S/S OF PHLEBITIS AT THIS TIME. ICE WATER REFILLED. NO ADDITIONAL REQUESTS OR COMPLAINTS. CALL LIGHT WITHIN REACH. BED RAILS UP.
--- NOTE | 2022-11-25 06:39 | NUR ---
THIS RN TO ROOM TO CHECK ON PT. PT RESTING IN BED WITH EYES CLOSED. RESPIRATIONS EVEN AND UNLABORED. OXYGEN SATURAITONS 96% ON 1L O2 BY NC. PT ALLOWED TO REST. CALL LIGHT WITHIN REACH. BED RAILS UP.
--- NOTE | 2022-11-25 07:27 | NUR ---
MORNING ASSESSMENT DUE. PT CALL LIGHT ON. PT REQUESTS ASSISTANCE UP TO RESTROOM. STAND BY ASSIST WITH FWW UP TO RESTROOM. P REPORTS 1/10 PAIN IN LEFT UPPER ABDOMEN THAT IS WELL CONTROLLED AT THIS TIME. PT DENIES NEED FOR PAIN MEDICATION. PT ALRET AND OREINTD TO ALL. ANISHA CARE PER PT. MORNING CARES AND ORAL CARE PER PT. STAND BY ASSIST BACK TO BED. PT POSITIONS SELF IN BED. HEART TONES REGULAR. LUNG SOUNDS CLEAR THROUGHOUT LUNG [place]. PT REMAINS ON 1L O2 BY NH WITH OXGYEN SATURATIONS OF 92-96%. EDEMA TO RIGHT LOWER EXTEMITY NOW +3. +2 EDEMA CONTINUES IN LEFT LOWER EXTREMITY. PT CONTINEUS TO DECLINE SCD'S. ABDOMEN REMAINS SOFT BUT TENDER ESPICIALLY IN LEFT UPPER QUADRANT. BOWEL TONES HYPOACTIVE THIS MORNING. PT ENCORUAGED TO AMBULATE. DECLINES AT THIS TIME. PT ENCORAUGED TO GET UP TO CHAIR, ALSO DECLINES. MIDLINE INCISION C/D/I WITH EDGES WELL APROXIMATED. VERBAL ORDERS FROM DR JAMES TO REMOVE STERI STRIPS IN SHOWER. STERI STRIPS LEFT INTACT AT THIS TIME. STEPHIE DRAIN IN PLACE WITH SMALL AMOUNTS OF RED DRAINAGE ON GAUZE DRESSING AND SMALL AMOUTNS OF SEROUSANGUINOUS DRAINAGE IN BULB. PT CONTINEUS TO REPORTS SHE IS PASSING SMALL AMOUNTS OF GAS. SMALL AMOUNTS OF ERYTHEM AND BRUISING AROUND MIDLINE INCISION SITE. PT VOIDIGN LARGE AMOUNTS OF URINE. NO ADDITONAL NEEDS AT THIS TIME. PT RESTING IN SUPINE POSITION. DR JAMES TO BEDSIDE, UPDATED ON PT STATUS AND ASSESSMENT. NEW ORDERS PLACED. PT EDUCATION DONE REGARDING FULL LIQUIDS. NO ADDITIONAL NEEDS AT THIS TIME. CALL LIGHT WIHTIN REACH. BED RAILS UP.
--- NOTE | 2022-11-25 08:51 | NUR ---
MEDICATION DUE. PT WATCHING TV. PT REPORTS PAIN IN LEFT UPPER QUADRANT AT 2/10 AT THIS TIME AND DENIES NEED FOR PAIN MEDICATION AT THIS TIME. MEDICATIONS GIVEN. NO ADDITIONAL REQUESTS OR COMPLAINTS. CALL LIGHT WITHIN REACH. BED RAILS UP.
[2022-11-25 09:30] VITALS: BP 108/57
--- NOTE | 2022-11-25 09:53 | NUR ---
THIS RN TO ROOM TO CHECK ON PT. PT REPORTS 2/10 PAIN IN UPPER LEFT QUADRANT OF ABDOMEN. PT REQUESTS PAIN MEDICATION. SEE MAR FOR MEDICAITON GIVEN. PT AGREES TO GET UP TO AMBULATE. PT UP TO AMBULATE WITH STAND BY ASSIST AND FWW X1 LAP ARROUND RATLIFF AND OUT TO MAIN HALLWAY TO LOOK OUT WINDOWS. PT TOELRATED AMBULATION WELL AND REPORTS NO INCREASE IN PAIN. PT UP TO RESTROOM. ANISHA CARE PER PT. PT CONTINUES TO REPORTS SHE IS PASSING GAS. NO BOWEL MOVEMENT YET. PT AGREES TO TIME UP TO CHAIR. FRESH HEAT PACK PROVIDED. NO ADDITONAL REQUESTS OR COMPLAINTS. CALL LIGHT WITHIN REACH.
--- NOTE | 2022-11-25 11:05 | NUR ---
THIS RN TO ROOM TO CHECK ON PT. PT REPORTS 0/10 PAIN AND DENIES NEED FOR ADDITIONAL PAIN MEDICAITON. IV SITE TO LEFT FORARM LEAKING, DC'D PER PROTOCOL. GAUZE AND COBAN APPLIED. NEW IV STARTED PER PROTOCOL TO LEFT FORARM (SAME ARM PER PT REQUEST). IV FLUIDS CONTINUE AT NEW SITE. PT DENIES ADDITIONAL REQUESTS OR COMPLAINTS. VISITING WITH . CALL LIGHT WITHIN REACH. BED RAILS UP.
--- NOTE | 2022-11-25 12:11 | NUR ---
THIS RN TO ROOM TO CHECK ON PT. PT REPORTS 3-4/10 PAIN IN LEFT UPPER QUADRANT. EDUCATION REGARDING PAIN MEDICATION DONE WITH PT AND PT DENIES NEED FOR PAIN MEDICATION AT THIS TIME. STAND BY ASSIST WITH FWW UP TO AMBULATE IN RATLIFF X1 LAP AND OUT TO MAIN HALLWAY (FRONT WINDOWS). PT UP TO RESTROOM. VOIDS WITHOUT ISSUE. ANISHA CARE PER PT. PT BACK TO BED. PT ABLE TO ADJUST SELF IN BED. HEAD OF BED ELEVATED TO 30 DEGREES. NO ADDITIONAL REQUESTS OR COMPLAINTS. CALL LIGHT WITHIN REACH. BED RAILS UP.
--- NOTE | 2022-11-25 13:11 | NUR ---
THIS RN TO ROOM TO CHECK ON PT. PT RESTING IN BED WITH EYES CLOSED. RESPIRATIONS EVEN AND UNLABORED. OXGYEN SATURATION 95% ON 1L O2 BY NC. BED RAILS UP. CALL LIGHT WITHIN REACH. PT ALLOWED TO REST.
--- NOTE | 2022-11-25 13:34 | NUR ---
AFTERNOON ASSESSMENT AND MEDICATION DUE. PT RESTING IN BED WITH EYES CLOSED. PT AWAKENS TO MOVEMENT IN THE ROOM. PT REPORTS 4-5/10 PAIN AND REQUESTS HER AFTERNOON PAIN MEDICATION. SEE MAR FOR MEDICATION GIVEN. PT REMAINS ALERT AND OREINTD TO ALL. REQUESTS ASSISTANCE UP TO RESTROOM. STAND BY ASSIST UP TO RESTROOM. PT VOIDS WITH OUT ISSUE. ANISHA CARE PER PT. STAND BY ASSIST BACK TO BED. PT DECLIENS TIME UP TO GÉNESIS AT THIS TIME. HEART TONES REGULAR. LUNG SOUNDS CLEAR. PT REMAINS ON 1L O2 BY NC TO MAINTAIN OXGYEN SATURATIONS ABOVE 90%. ABDOMEN REMAINS SOFT AND TENDER TO LEFT UPPER QUADRANT. BOWEL TONES ACTIVE AND PT REPORTS SMALL SMEAR OF BOWEL MOVEMENT WITH RESTROOM USE. MIDLINE INCISION C/D/I WITH EDGES WELL APROXIMATED AND STERI STRIPS INTACT. STEPHIE DRAIN WNL WITH NO NEW DRAINAGE ON GAUZE AND SMALL AMOUNTS OF SEROUS ANGUINOU FLUID IN STEPHIE BULB. PT REQUESTS CHICKEN BROTH. NO ADDITONAL REQUESTS OR COMPLAINTS. CALL LIGHT WITHIN REACH. BED RAILS UP.
[2022-11-25 15:02] VITALS: BP 109/65
--- NOTE | 2022-11-25 15:05 | NUR ---
PT FINISHED WITH SHOWER AND BACK TO BED. STEPHIE DRESSING CHANGED WITH FRESH GAUZE IN PLACE. STERI STRIPS TO LOWER HALF OF MIDLINE INCISION HAVE FALLEN OFF RELATED TO MOISTURE. NEW STERI STRIPS APPLIED TO DISTAL END RELATED TO 2CM AREA OF WOUND THAT IS NOT WELL APROXIMATED. NEW ABDOMINAL BINDERS X2 PROVIDED AND APPLIED. PT REPORTS 0/10 PAIN BUT FOR "AN OCCATIONAL TWINGE." IV FLUIDS RESUMED. NEW CPOX STICKER IN PLACE. PT DENIES NEED FOR ADDITIONAL PAIN MEDICATION. PT REPORTS SHE WAS ABLE TO HAVE A BOWEL MOVEMENT WHILE UP TO THE RESTROOM WHICH WAS "LARGE AND OLIVIA SOFT." NO ADDITIONAL NEEDS AT THIS TIME. CALL LIGHT WITHIN REACH. BED RAILS UP.
--- NOTE | 2022-11-25 15:40 | NUR ---
THIS RN TO ROOM TO CHECK ON PT. PT RESTING WITH EYES CLOSED. RESPIRATIONS EVEN AND UNLABORED. COPX SHOWS 95% ON 1L O2 BY NC. BED RAILS UP. CALL LIGHT WITHIN REACH. PT ALLOWED TO REST.
--- NOTE | 2022-11-25 15:59 | NUR ---
Patient currently sleeping in bed with NC on. Pulse Ox on and WNL. Regular respirations noted.
--- NOTE | 2022-11-25 16:32 | NUR ---
THIS RN TO ROOM TO CHECK ON PT. PT RESTING IN SUPINE POSITION. PT REPOR TS 4/10 PAIN AND REQUESTS PAIN MEDICAITON. SEE MAR FOR MEDICATION GIVEN. PT DENEIS ADDITIONAL REQUESTS OR COMPLAINTS. CALL LIGHT WITHINR EACH. BED RAISL UP. PT OFFERED TIME UP TO WALK AND/OR GO OUTSIDE TO GARDEN. PT DECLINES.
--- NOTE | 2022-11-25 17:22 | NUR ---
PT POST OP DAY 5 AFTER HERNIA REPAIR AND BOWEL RESSCTION. PT UP TO RESTROOM AMBULATION IN RATLIFF, WITH PHYSICAL THERAPY, TO CHAIR AND SHOWER THIS SHIFT WITH STAND BY ASSIST AND FWW. BOWEL MOVEMENT NOTED THIS SHIFT. PT TOLERATING FULL LIQUID DIET WITH IMPROVING INTAKE. PRN PAIN MEDICATOIN GIVEN Q2 HOURS THIS SHIFT WITH IMPROVING PAIN CONTROL AND LESS NEED FOR PAIN MEDICATION. PT REMAINS ON 1L O2 BY NC RELATED TO DESATURATIONS WHEN RESTING AND WITH PAIN MEDICAITON. EDMEA REMAINS IN BLE. PT DENIES NASUEA. MID LINE INCISION CONTINUES TO HAVE NO DRAINAGE. DISTAL STERI STRIPS FELL OFF AFTER SHOWER WITH SMALL DISTAL END NOT WELL APROXIMATED WITHOUT STERI STRIPS. NEW STERI STRIPS APPLIED. NEW ABDOMINAL BINDERS X2 IN PLACE OTHERS WERE SOILED. STEPHIE DRAIN SHOWS. FLUID IN SMALL AMOUNTS, DRESSING ARROUND STEPHIE SITE CHANGED THIS SHIFT. IV FLUID RATE DECREASED THIS SHIFT. PT VOIDING QUANITY SUFFICIENT. PT USES CALL LIGHT AND MAKES NEEDS KNOWN.
[2022-11-25 17:38] VITALS: BP 138/73
--- NOTE | 2022-11-25 18:09 | NUR ---
THIS RN TO ROOM TO CHECK ON PT. MEDICATION DUE. PT REPORTS 4/10 PAIN IN LUQ, SEE MAR FOR MEDICATION GIVEN. PLAN OF CARE REVIEWED WITH PT, QUESTIONS ANSWERED. PT REPORTS SHE WAS JUST UP TO RESTROOM AND IS COMFORTABLE AT THIS TIME. NO ADDITIONAL REQUESTS OR COMPLAINTS. CALL LIGHT WITHIN REACH. BED RAILS UP.
--- NOTE | 2022-11-25 19:08 | NUR ---
PATIENT TAKEN FOR WALK VIA WHEELCHAIR OUTSIDE. PATIENT TOLERATED WELL. PATIENT BACK IN ROOM IN BED, PULSE OX BACK ON, IV UP AND RUNNING AGAIN, OXYGEN CURRENTLY AT 1L. PATIENT WOULD NOT WEAR OXYGEN OUTSIDE. PATIENT WAS VERY THANKFUL FOR THE WALK. LINENS CHANGED WHILE OUTSIDE WALKING. NEW GOWN PLACED ON PATIENT.
--- NOTE | 2022-11-25 19:49 | NUR ---
CALL LIGHT ANSWERED. CPOX IS ALARMING. O2 SAT AND HR ARE WITHIN NORMAL RANGE. FAMILY VISITING IN THE ROOM. NO OTHER NEEDS AT THIS TIME.
[2022-11-25 20:15] VITALS: BP 122/70
--- NOTE | 2022-11-25 21:05 | NUR ---
PT ASSESSED AND MEDICATIONS GIVEN. ABDOMINAL SITES ARE INTACT. 2 ABDOMINAL BINDERS ON. STEPHIE DRAIN INTACT, LITTLE OUTPUT NOTED. IVF INFUSING PER ORDER. VSS. FAMILY VISITING PT AT THIS TIME. SAFETY PRECAUTIONS MAINTAINED. CALL LIGHT WITHIN REACH. WILL CONTINUE TO MONITOR.
--- NOTE | 2022-11-25 22:03 | NUR ---
SBA TO THE BATHROOM AND BACK TO BED. NO OTHER NEEDS AT THIS TIME. FAMILY IN THE ROOM. CALL LIGHT WITHIN REACH. CPOX AND O2 ON.
--- NOTE | 2022-11-25 22:34 | NUR ---
VISITOR TO NURSES STATION FOR SCISSORS. RN IN ROOM. MIDDLE FINGER ON LEFT HAND REDRESSED WITH GAUZE AND COBAN PER REQUEST. SMALL SCRAPE ON FINGER FROM PREVIOUS REMOVAL OF PULSE OXIMETER. pt DENIES ADDITIONAL REQUESTS. CALL LIGHT IN REACH.
[2022-11-26 04:48] VITALS: BP 129/83
--- NOTE | 2022-11-26 06:17 | NUR ---
PT RESTED WELL DURING THE SHIFT. PAIN MANAGED WITH PO DILAUDID ONLY. PT ABLE TO AMBULATE TO BATHROOM WITHOUT COMPLICATIONS. STEPHIE DRAIN OUTPUT WAS 5ML FOR SHIFT. IVF INFUSING PER ORDER. SAFETY PRECAUTIONS MAINTAINED. CALL LIGHT WITHIN REACH. WILL CONTINUE TO MONITOR.
--- NOTE | 2022-11-26 07:30 | NUR ---
received report from [facility] nurse. pt is sitting up in bed alert and oriented. iv fluids running. denies needs att.
--- NOTE | 2022-11-26 07:46 | NUR ---
Chart faxed to Kerline at [facility].
--- NOTE | 2022-11-26 09:00 | NUR ---
Spoke with Edel and her exspouse. She feels she is now doing very well. She is able to walk and wants to go home. She is waiting to speak with Dr. Landry. She denies need for any DME and states she has a walker and a shower chair at home.
--- NOTE | 2022-11-26 09:34 | NUR ---
pt medication administration and assessment completed. rates pain 3/10. abdominal binder in place. georgina drain in place. call light within reach.
[2022-11-26 09:51] VITALS: BP 126/67
--- NOTE | 2022-11-26 10:00 | NUR ---
Spoke with Edel, her exspouse is in the room. He lives with pt. Pt and ex spouse plan on pt discharging to home. Pt now stating she had a good weekend and is walking. Pt states she has a walker and shower chair at home. She denies needs for any DME.
--- NOTE | 2022-11-26 12:07 | NUR ---
PT REFUSED WALKING ATT. WILL WALK PRIOR TO TAKING SHOWER TODAY.
--- NOTE | 2022-11-26 12:36 | NUR ---
assisted pt to restroom. ambulates with one person sba and walker.
--- NOTE | 2022-11-26 12:44 | NUR ---
PT IN BED. IN CHAIR. PT SMILING AND APPEARED TO BE IN GOOD SPIRITS. EXPRESSED EXCITEMENT AT PROPSPECT OF DISCHARGE. DECLINED PRAYER.
[2022-11-26 13:58] VITALS: BP 110/68
--- NOTE | 2022-11-26 14:08 | NUR ---
prn dilaudid administered
[2022-11-26 17:42] VITALS: BP 111/55
--- NOTE | 2022-11-26 19:28 | NUR ---
AFTER PATIENT AND I DID HER WALK AROUND MED SURG. AROUND 1600 PATIENT TOOK A SHOWER. CLEAN GOWN AND SOCKS ALSO NEW ABDOMINAL BINDERS. MALINA CHANGED THE BED LINENS WHILE WE WERE OUT OF THE ROOM.
--- NOTE | 2022-11-26 19:30 | NUR ---
CALL LIGHT ANSWERED. SBA WITH FWW TO RESTROOM FOR VOID AND BACK TO BED. pt INDEPENDENT WITH TRANSFER IN AND OUT OF BED. ABD BINDERS IN PLACE. ICE WATER REFILLED. TRAY TABLE CLEARED. CALL LIGHT IN REACH. 1L OXYGEN BY NC IN PLACE.
[2022-11-26 20:49] VITALS: BP 115/65
--- NOTE | 2022-11-26 21:49 | NUR ---
PT ASSESSED AND MEDICATIONS GIVEN. VSS. STEPHIE DRAIN IN PLACE. [address] FAMILY IN ROOM VISITING WITH PT. SAFETY PRECAUTIONS MAINTAINED. CALL LIGHT WITHIN REACH. WILL CONTINUE TO MONITOR.
--- NOTE | 2022-11-26 23:40 | NUR ---
SBA PATIENT USED THE BATHROOM. PATIENT IS BACK IN BED. ROOM AIR. O2 SAT @93% PER CPOX. PRIMARY RN ERNIE NOTIFIED.
[2022-11-27 05:36] VITALS: BP 129/80
--- NOTE | 2022-11-27 06:06 | NUR ---
PT RESTED WELL DURING THE SHIFT. PAIN MANAGED WITH PO AND IV DILAUDID. PT SATING WELL ON RA THROUGHOUT SHIFT. PT ABLE TO AMBULATE TO BATHROOM WITH SBA. SAFETY PRECAUTIONS MAINTAINED. CALL LIGHT WITHIN REACH. WILL CONTINUE TO MONITOR.
--- NOTE | 2022-11-27 07:00 | NUR ---
RECIEVED REPORT FROM [facility] NURSE. PT IS A/O, RESPIRATIONS EVEN AND REGULAR. DENIES NEEDS ATT.
--- NOTE | 2022-11-27 08:55 | NUR ---
PT ASSESSMENT AND MEDICATION ADMINISTRATION COMPLETED. WHEN COMPLETED MD TO BEDSIDE AND REMOVED STEPHIE DRAIN. PLANS TO DC PT TODAY.
[2022-11-27 09:12] VITALS: BP 110/59
[2022-11-27] MEDS ORDERED: HYDROMORPHONE HC4 MG PO (09:16)
[2022-11-27] MEDS ORDERED: FAMOTIDINE20 MG PO (09:17)
[2022-11-27] MEDS ORDERED: TYLENOL EXTRA500 MG PO (09:18)
[2022-11-27] MEDS ORDERED: HYDROCODON-ACE1 EAC8 PO (10:10)
[2022-11-27] MEDS ORDERED: OXYCODONE HCL5 MG PO (10:11)
[2022-11-27 10:18] VITALS: BP 119/65
--- NOTE | 2022-11-27 20:00 | NUR ---
ASSISTED PATIENT UP TO BEDSIDE COMMODE AND BACK TO BED. NO OTHER NEEDS AT THIS TIME. CALL LIGHT WITHIN PATIENT'S REACH. BED ALARM ON FOR SAFETY.
[2022-11-27 20:39] VITALS: BP 164/78
--- NOTE | 2022-12-01 11:02 | DS ---
[facility] [address], [place] [address] Signed ADMISSION DATE: 11/21/2022 DISCHARGE DATE: 11/27/2022 REASON FOR ADMISSION: This 62-year-old white woman was recently discharged from the hospital by me having undergone operation on November 15, 2022 including partial omental resection, excision of suspicious taenia epiploica, as well as excision of peritoneal nodule incorporated in prior abdominal wall fascial mesh. She is known to have pancreatic neoplasm in the midportion highly suspect for malignancy. She underwent biopsy at the request of Dr. Patrick Munoz, her radiation oncologist as she is anticipating radiation therapy in the near future for palliative intention. The patient is quite obese and had attenuated fascia. A limited incision at the umbilicus allowed for access to the abdomen to perform the aforementioned biopsies. The patient was doing well at home, but then began having abdominal pain and presented to the emergency room, where she was evaluated by Dr. Moore regarding pain in her back (long-standing related to tumor) as well as the abdomen. Evaluation included CT scan of the abdomen, it showed transgression of bowel loops through the area of recent incision with incarcerated hernia. She is admitted for further evaluation and care. PERTINENT PHYSICAL EXAMINATION: GENERAL: Obese white woman, who did not look systemically toxic. VITAL SIGNS: Height was 5 feet 7 inches, weight 33.5 kg, BMI 52.8. ABDOMEN: Showed faint bruising in the region of the infraumbilical incision. Palpation in the subcutaneous space did not clearly demonstrate bowel due to her thick abdominal wall pannus, is easily noted on CT scan. LABORATORY DATA: Her white count was 7.4. Creatinine 0.75. Liver enzymes normal. Platelets 210,000. Electrolytes normal. HOSPITAL COURSE: She was admitted, given fluid resuscitation and taken to operation for incarcerated incisional hernia. The fascial defect was inferior to the umbilicus with herniation of small bowel to the left subcutaneous space. She was found to have extreme friability of the mesentery itself and a fair amount of bowel had herniated through separation of the fascial edges. This was fully isolated in relation to the fascial defect, was found to have extremely friable mesentery. Mesentery was easily made to bleed and segmental bowel resection was required due to ischemic changes related to the tears in the mesentery. A [id number], functional end-to-end stapled enteroenterostomy was accomplished. The bowel was returned to the abdominal cavity. The fascia was Electronically Signed By: BERNADINE ROSA MD 12/01/22 1102 PATIENT NAME: RENUKA SHARMA DISCHARGE SUMMARY DATE OF : 58 REPORT #: [id number] PHYSICIAN: BERNADINE ROSA MD PCP: CASTRO PAGE MD REPORT IS CONFIDENTIAL AND NOT TO BE RELEASED WITHOUT AUTHORIZATION [address] [address] Signed impressively attenuated and thin in relation to her chronic steroid use as well as obesity. Repair of the hernia was undertaken with implantation of Prolene mesh in the properitoneal space. A drain was placed. Her postoperative course was rather unremarkable. She was begun on a clear liquid diet on her first postoperative day. Postoperative care was assumed by Dr. Nicholson in my absence for a few days. When I returned, she was still on a clear liquid diet. She was promptly advanced to regular diet, which she tolerated well and was discharged home without problem. The drain that was in place was removed. She is to maintain her abdominal binder to minimize the stress on the incisional hernia repair. She should lift no more than 10 lbs for the next 4 wks. DISCHARGE MEDICATIONS: 1. Dilaudid 4-8 mg p.o. q.4 hours as needed for pain, #30. 2. Famotidine 20 mg p.o. b.i.d., #60, refill one. 3. Tylenol Extra Strength 500 mg two tablets p.o. q.6 hours p.r.n. pain, #60. 4. Zofran 8 mg ODT one p.o. b.i.d. as needed for nausea. 5. Senna tablets one tablet b.i.d. as needed. 6. Combivent inhaler one puff q.6 hours as needed for shortness of breath. 7. Prednisone 10 mg p.o. daily. 8. Budesonide/Pulmicort Flexhaler two puffs b.i.d. 9. Albuterol inhaler as needed for wheezing q.6 hours. 10. Oxycodone 5 mg one to two p.o. q.6 hours as needed for pain. DISCHARGE DIAGNOSES: 1. Stage IV pancreatic cancer, status post biopsy of intraperitoneal nodules on November 15, 2022. 2. Postoperative incisional herniation with incarcerated small bowel in subcutaneous space, status post segmental small bowel resection, reduction of hernia, and repair of hernia on November 20, 2022. 3. Morbid obesity. 4. Steroid dependent chronic obstructive pulmonary disease. 5. 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 Bernadine Rosa MD Electronically Signed By: BERNADINE ROSA MD 12/01/22 1102 PATIENT NAME: RENUKA SHARMA DISCHARGE SUMMARY DATE OF : 58 REPORT #: [id number] PHYSICIAN: BERNADINE ROSA MD PCP: CASTRO PAGE MD REPORT IS CONFIDENTIAL AND NOT TO BE RELEASED WITHOUT AUTHORIZATION [address] [place], [place] [address] Signed /[facility] /[id number] cc: Patrick Munoz MD, PH.D. Copies: PATRICK MUNOZ ~ Electronically Signed By: BERNADINE ROSA MD 12/01/22 1102 PATIENT NAME: RENUKA SHARMA DISCHARGE SUMMARY DATE OF : 58 REPORT #: [id number] PHYSICIAN: BERNADINE ROSA MD PCP: CASTRO PAGE MD REPORT IS CONFIDENTIAL AND NOT TO BE RELEASED WITHOUT AUTHORIZATION
== END 2022-11-27 12:30 | disposition home or self-care (01) | DRG 330 ==
LOC: ED 14:39 → MS 14:40
PROVIDERS: ADMIT Surgery; ATTEND Surgery
PROC: 0WUF0JZ Supplement Abdominal Wall with Synthetic Substitute, Open Approach (ICD-10-PCS; 2022-11-20)
PROC: 0DB80ZZ Excision of Small Intestine, Open Approach (ICD-10-PCS; 2022-11-20)
PROC: 0W9G00Z Drainage of Peritoneal Cavity with Drainage Device, Open Approach (ICD-10-PCS; 2022-11-20)
PROC: 0W3P0ZZ Control Bleeding in Gastrointestinal Tract, Open Approach (ICD-10-PCS; 2022-11-20)
PROC: 0D180Z8 Bypass Small Intestine to Small Intestine, Open Approach (ICD-10-PCS; principal; 2022-11-20 19:57)
DX: K43.0 Incisional hernia with obstruction, without gangrene (principal); C25.9 Malignant neoplasm of pancreas, unspecified; C78.6 Secondary malignant neoplasm of retroperitoneum and peritoneum; C78.7 Secondary malignant neoplasm of liver and intrahepatic bile duct; K42.9 Umbilical hernia without obstruction or gangrene; K59.00 Constipation, unspecified; Z51.5 Encounter for palliative care; J44.9 Chronic obstructive pulmonary disease, unspecified; E66.01 Morbid (severe) obesity due to excess calories; Z79.52 Long term (current) use of systemic steroids; G89.3 Neoplasm related pain (acute) (chronic); Z98.41 Cataract extraction status, right eye; Z98.890 Other specified postprocedural states; Z98.51 Tubal ligation status; Z88.4 Allergy status to anesthetic agent; Z79.891 Long term (current) use of opiate analgesic; Z91.011 Allergy to milk products; Z91.02 Food additives allergy status; Z79.899 Other long term (current) drug therapy; Z98.42 Cataract extraction status, left eye; Z68.33 Body mass index [BMI] 33.0-33.9, adult
CPT/HCPCS: 00840; 36415; 74177; 80048; 80053; 81003; 83690; 83735; 84100; 85025; 88307; 97161; J0131; J0690; J1170; J1644; J1720; J2001; J2405; J2704; J3010; J3475; J7030; J7060; J7121; J7512; Q9967

== ENCOUNTER 2023-01-18 04:56 | Emergency (ER) | payer OTHER ==
[~2023-01-18] VITALS: Ht 170.2 cm; Wt 99.5 kg
--- OUTSIDE RECORDS SUMMARY | ~2023-01-18 | XMS | Continuity of Care Document ---
Demographics + + + | Address | [address] | | | [place] [address] | + + + | Preferred Language | Unknown | + + + | Marital Status | | + + + | Confucianist Affiliation | Unknown | + + + | Race | White | + + + | Ethnic Group | Not or | + + + Author + + + | Author | [facility] | + + + | Organization | [facility] | + + + | Address | [address] | | | [place] [address] | + + + | Phone | | + + + Care Team Providers + + + + | Care User Experience Developer Name | Role | Phone | + [...] 2022-11-15 00:00 | No vaccine administered | [facility] | + + + + | 2022-11-28 00:00 | No vaccine administered | [facility] | + + + + Medications + + + + | date | description | facility | + + + + | 2022-11-15 00:00 | OXYCODONE HCL | [facility] | + + + + | 2022-11-15 00:00 | oxycodone hydrochloride 5 | [facility] | | | MG Oral Tablet | | + + + + | 2022-11-28 00:00 | oxycodone hydrochloride 5 | [facility] | | | MG Oral Tablet | | + + + + | 2016-03-11 00:00 | OXYCODONE | [facility] | | | HCL/ACETAMINOPHEN | | + + + + | 2016-03-11 00:00 | OXYCODONE | [facility] | | | HCL/ACETAMINOPHEN | | + + + + | 2016-03-11 00:00 | acetaminophen 325 MG / | [facility] | | | oxycodone hydrochloride 5 | | | | MG Oral Tab | | + + + + | 2022-11-15 00:00 | 120 ACTUAT albuterol 0.1 | [facility] | | | MG/ACTUAT / ipratropium | | | | bromide 0.0 | | + + + + | 2022-11-28 00:00 | 120 ACTUAT albuterol 0.1 | [facility] | | | MG/ACTUAT / ipratropium | | | | bromide 0.0 | | + + + + | 2022-09-01 00:00 | IPRATROPIUM/ALBUTEROL | [facility] | | | SULFATE | | + + + + | 2022-10-03 00:00 | IPRATROPIUM/ALBUTEROL | [facility] | | | SULFATE | | + + + + | 2022-11-15 00:00 | IPRATROPIUM/ALBUTEROL | [facility] | | | SULFATE | | + + + + | 2022-11-28 00:00 | albuterol 0.833 MG/ML / | [facility] | | | ipratropium bromide 0.167 | | | | MG/ML Inha | | + + + + | 2022-09-01 00:00 | predniSONE | [facility] | + + + + | 2022-10-03 00:00 | predniSONE | [facility] | + + + + | 2022-11-15 00:00 | predniSONE | [facility] | + + + + | 2022-11-15 00:00 | prednisone 10 MG Oral | [facility] | | | Tablet | | + + + + | 2022-11-28 00:00 | prednisone 10 MG Oral | [facility] | | | Tablet | | + + + + | 2022-11-27 00:00 | acetaminophen 500 MG Oral | [facility] | | | Tablet | | + + + + | 2022-09-01 00:00 | CEFDINIR | [facility] | + + + + | 2022-09-01 00:00 | CEFDINIR | [facility] | + + + + | 2022-09-01 00:00 | cefdinir 300 MG Oral | [facility] | | | Capsule | | + + + + | 2022-09-01 00:00 | LORATADINE | [facility] | + + + + | 2022-10-03 00:00 | LORATADINE | [facility] | + + + + | 2022-11-15 00:00 | LORATADINE | [facility] | + + + + | 2022-11-15 00:00 | loratadine 10 MG Oral | [facility] | | | Tablet [Claritin] | | + + + + | 2022-11-28 00:00 | loratadine 10 MG Oral | [facility] | | | Tablet [Claritin] | | + + + + | 2014-11-05 00:00 | LEVOFLOXACIN | [facility] | + + + + | 2014-11-05 00:00 | LEVOFLOXACIN | [facility] | + + + + | 2014-11-05 00:00 | levofloxacin 500 MG Oral | [facility] | | | Tablet [Levaquin] | | + + + + | 2016-03-11 00:00 | CEPHALEXIN | [facility] | + + + + | 2016-03-11 00:00 | CEPHALEXIN | [facility] | + + + + | 2016-03-11 00:00 | cephalexin 250 MG Oral | [facility] | | | Capsule [Keflex] | | + + + + | 2022-11-27 00:00 | famotidine 20 MG Oral | [facility] | | | Tablet | | + + + + | 2022-09-01 00:00 | GABAPENTIN | [facility] | + + + + | 2022-10-03 00:00 | GABAPENTIN | [facility] | + + + + | 2022-11-15 00:00 | GABAPENTIN | [facility] | + + + + | 2022-11-15 00:00 | gabapentin 300 MG Oral | [facility] | | | Capsule | | + + + + | 2022-11-28 00:00 | gabapentin 300 MG Oral | [facility] | | | Capsule | | + + + + | 2022-09-01 00:00 | IBUPROFEN | [facility] | + + + + | 2022-10-03 00:00 | IBUPROFEN | [facility] | + + + + | 2022-11-15 00:00 | IBUPROFEN | [facility] | + + + + | 2022-11-15 00:00 | ibuprofen 200 MG Oral | [facility] | | | Tablet | | + + + + | 2022-11-28 00:00 | ibuprofen 200 MG Oral | [facility] | | | Tablet | | + + + + | 2022-10-03 00:00 | ONDANSETRON | [facility] | + + + + | 2022-11-15 00:00 | ONDANSETRON | [facility] | + + + + | 2022-10-03 00:00 | ondansetron 8 MG | [facility] | | | Disintegrating Oral Tablet | | + + + + | 2022-11-15 00:00 | ondansetron 8 MG | [facility] | | | Disintegrating Oral Tablet | | + + + + | 2022-11-28 00:00 | ondansetron 8 MG | [facility] | | | Disintegrating Oral Tablet | | + + + + | 2022-09-01 00:00 | predniSONE | [facility] | + + + + | 2022-10-03 00:00 | predniSONE | [facility] | + + + + | 2022-11-15 00:00 | predniSONE | [facility] | + + + + | 2022-11-15 00:00 | prednisone 20 MG Oral | [facility] | | | Tablet | | + + + + | 2022-11-28 00:00 | prednisone 20 MG Oral | [facility] | | | Tablet | | + + + + | 2022-09-01 00:00 | PREDNISONE | [facility] | + + + + | 2022-10-03 00:00 | PREDNISONE | [facility] | + + + + | 2022-11-15 00:00 | PREDNISONE | [facility] | + + + + | 2022-11-15 00:00 | prednisone 5 MG Oral | [facility] | | | Tablet | | + + + + | 2022-11-28 00:00 | prednisone 5 MG Oral | [facility] | | | Tablet | | + + + + | 2022-11-15 00:00 | SENNOSIDES | [facility] | + + + + | 2022-11-15 00:00 | sennosides, SHELTER 8.6 MG | [facility] | | | Oral Tablet | | + + + + | 2022-11-28 00:00 | sennosides, SHELTER 8.6 MG | [facility] | | | Oral Tablet | | + + + + | 2022-09-01 00:00 | VALACYCLOVIR HCL | [facility] | + + + + | 2022-10-03 00:00 | VALACYCLOVIR HCL | [facility] | + + + + | 2022-11-15 00:00 | VALACYCLOVIR HCL | [facility] | + + + + | 2022-11-15 00:00 | valacyclovir 1000 MG Oral | [facility] | | | Tablet | | + + + + | 2022-11-28 00:00 | valacyclovir 1000 MG Oral | [facility] | | | Tablet | | + + + + | 2022-09-01 00:00 | TRAMADOL HCL | [facility] | + + + + | 2022-09-01 00:00 | TRAMADOL HCL | [facility] | + + + + | 2022-09-01 00:00 | THEOPHYLLINE ANHYDROUS | [facility] | + + + + | 2022-10-03 00:00 | THEOPHYLLINE ANHYDROUS | [facility] | + + + + | 2022-11-15 00:00 | THEOPHYLLINE ANHYDROUS | [facility] | + + + + | 2022-11-15 00:00 | theophylline 200 MG | [facility] | | | Extended Release Oral | | | | Capsule [Hunter-24] | | + + + + | 2022-11-28 00:00 | theophylline 200 MG | [facility] | | | Extended Release Oral | | | | Capsule [Hunter-24] | | + + + + | 2014-01-04 00:00 | | [facility] | | | SULFAMETHOXAZOLE/TRIMETHOPR | | | | IM DS | | + + + + | 2014-01-04 00:00 | | [facility] | | | SULFAMETHOXAZOLE/TRIMETHOPR | | | | IM DS | | + + + + | 2016-02-17 00:00 | | [facility] | | | SULFAMETHOXAZOLE/TRIMETHOPR | | | | IM DS | | + + + + | 2016-02-17 00:00 | | [facility] | | | SULFAMETHOXAZOLE/TRIMETHOPR | | | | IM DS | | + + + + | 2014-01-04 00:00 | sulfamethoxazole 800 MG / | [facility] | | | trimethoprim 160 MG Oral | | | | Tablet [B | | + + + + | 2016-02-17 00:00 | sulfamethoxazole 800 MG / | [facility] | | | trimethoprim 160 MG Oral | | | | Tablet [B | | + + + + | 2022-11-28 00:00 | acetaminophen 325 MG / | [facility] | | | hydrocodone bitartrate 10 | | | | MG Oral Tab | | + + + + | 2022-09-01 00:00 | HYDROCODONE | [facility] | | | BIT/ACETAMINOPHEN | | + + + + | 2022-10-03 00:00 | HYDROCODONE | [facility] | | | BIT/ACETAMINOPHEN | | + + + + | 2022-11-15 00:00 | HYDROCODONE | [facility] | | | BIT/ACETAMINOPHEN | | + + + + | 2022-11-15 00:00 | acetaminophen 325 MG / | [facility] | | | hydrocodone bitartrate 5 MG | | | | Oral Tabl | | + + + + | 2022-11-28 00:00 | acetaminophen 325 MG / | [facility] | | | hydrocodone bitartrate 5 MG | | | | Oral Tabl | | + + + + | 2014-11-05 00:00 | HYDROCODONE | [facility] | | | BIT/ACETAMINOPHEN | | + + + + | 2014-11-05 00:00 | HYDROCODONE | [facility] | | | BIT/ACETAMINOPHEN | | + + + + | 2014-11-05 00:00 | acetaminophen 325 MG / | [facility] | | | hydrocodone bitartrate 5 MG | | | | Oral Tabl | | + + + + | 2022-10-03 00:00 | HYDROCODONE | [facility] | | | BIT/ACETAMINOPHEN | | + + + + | 2022-10-03 00:00 | acetaminophen 325 MG / | [facility] | | | hydrocodone bitartrate 7.5 | | | | MG Oral Ta | | + + + + | 2022-09-01 00:00 | ALBUTEROL SULFATE | [facility] | + + + + | 2022-10-03 00:00 | ALBUTEROL SULFATE | [facility] | + + + + | 2022-11-15 00:00 | ALBUTEROL SULFATE | [facility] | + + + + | 2022-11-15 00:00 | [id number] 200 ACTUAT | [facility] | | | albuterol 0.09 MG/ACTUAT | | | | Metered Dose I | | + + + + | 2022-11-28 00:00 | [id number] 200 ACTUAT | [facility] | | | albuterol 0.09 MG/ACTUAT | | | | Metered Dose I | | + + + + | 2022-11-15 00:00 | HYDROMORPHONE HCL | [facility] | + + + + | 2022-11-15 00:00 | hydromorphone | [facility] | | | hydrochloride 2 MG Oral | | | | Tablet [Dilaudid] | | + + + + | 2022-11-27 00:00 | hydromorphone | [facility] | | | hydrochloride 4 MG Oral | | | | Tablet | | + + + + | 2022-11-15 00:00 | 120 ACTUAT budesonide 0.18 | [facility] | | | MG/ACTUAT Dry Powder | | | | Inhaler [Pul | | + + + + | 2022-11-28 00:00 | 120 ACTUAT budesonide 0.18 | [facility] | | | MG/ACTUAT Dry Powder | | | | Inhaler [Pul | | + + + + | 2022-09-01 00:00 | BUDESONIDE | [facility] | + + + + | 2022-10-03 00:00 | BUDESONIDE | [facility] | + + + + | 2022-11-15 00:00 | BUDESONIDE | [facility] | + + + + Problems + + + + | date | description | facility | + + + + | 2014-11-02 00:00 | Sepsis | [facility] | + + + + | 2014-11-02 00:00 | Sepsis | [facility] | + + + + | 2015-07-06 00:00 | Laceration of right lower | [facility] | | | leg with complication | | + + + + | 2015-07-06 00:00 | Laceration of right lower | [facility] | | | leg with complication | | + + + + | 2015-07-06 00:00 | History of conscious | [facility] | | | sedation | | + + + + | 2015-07-06 00:00 | History of conscious | [facility] | | | sedation | | + + + + | 2016 00:00 | Cellulitis of right foot | [facility] | + + + + | 2016 00:00 | Cellulitis of right foot | [facility] | + + + + | 2016-02-16 00:00 | Sepsis, Gram positive | [facility] | + + + + | 2016-02-16 00:00 | Morbid obesity with BMI of | [facility] | | | 40.0-44.9, adult | | + + + + | 2016-02-16 00:00 | Transaminitis | [facility] | + + + + | 2016-02-16 00:00 | Gram positive sepsis | [facility] | + + + + | 2016-02-16 00:00 | Gram positive sepsis | [facility] | + + + + | 2016-02-16 00:00 | Herpes zoster | [facility] | + + + + | 2016-02-16 00:00 | Herpes zoster | [facility] | + + + + | 2016-02-16 00:00 | Morbid obesity with body | [facility] | | | mass index (BMI) of 40.0 to | | | | 44.9 in adult | | + + + + | 2016-02-16 00:00 | Morbid obesity with body | [facility] | | | mass index (BMI) of 40.0 to | | | | 44.9 in adult | | + + + + | 2016-02-16 00:00 | Chronic pain syndrome | [facility] | + + + + | 2016-02-16 00:00 | Chronic pain syndrome | [facility] | + + + + | 2016-02-16 00:00 | Steroid-dependent asthma | [facility] | + + + + | 2016-02-16 00:00 | Steroid-dependent asthma | [facility] | + + + + | 2016-02-16 00:00 | Elevated transaminase | [facility] | | | measurement | | + + + + | 2016-02-16 00:00 | Elevated transaminase | [facility] | | | measurement | | + + + + | 2016-03-11 00:00 | Contusion of left shoulder | [facility] | | | | | + + + + | 2016-03-11 00:00 | Contusion of left shoulder | [facility] | | | | | + + + + | 2016-03-11 00:00 | Skin tear of left upper | [facility] | | | extremity | | + + + + | 2016-03-11 00:00 | Skin tear of left upper | [facility] | | | extremity | | + + + + | 2016-03-11 00:00 | Tear of skin of multiple | [facility] | | | sites of lower extremity | | + + + + | 2016-03-11 00:00 | Tear of skin of multiple | [facility] | | | sites of lower extremity | | + + + + | 2016-03-11 00:00 | Fall from ground level | [facility] | + + + + | 2016-03-11 00:00 | Fall from ground level | [facility] | + + + + | 2022-09-01 00:00 | UTI (urinary tract | [facility] | | | infection) | | + + + + | 2022-09-01 00:00 | Gastritis | [facility] | + + + + | 2022-09-01 00:00 | Gastritis | [facility] | + + + + | 2022-09-01 00:00 | Urinary tract infection | [facility] | + + + + | 2022-09-01 00:00 | Urinary tract infection | [facility] | + + + + | 2022-09-01 13:18 | GASTRITIS, UNSPECIFIED, | [facility] | | | WITHOUT BLEEDING | | + + + + | 2022-09-01 13:18 | URINARY TRACT INFECTION, | [facility] | | | SITE NOT SPECIFIED | | + + + + | 2022-09-01 13:18 | EPIGASTRIC PAIN | [facility] | + + + + | 2022-09-01 13:18 | USP (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 | [facility] | | | SYSTEMIC STEROIDS | | + + + + | 2022-09-01 13:18 | ALLERGY TO MILK PRODUCTS | [facility] | + + + + | 2022-10-03 00:00 | Mass of pancreas | [facility] | + + + + | 2022-10-03 00:00 | Dyspepsia | [facility] | + + + + | [...] + + | 2022-10-03 13:51 | 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) | [facility] | | | DRUG [...] + + | 2022-11-15 09:57 | 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) | [facility] | | | DRUG [...] | 2022-11-20 00:00 | Abdominal pain | [facility] | + + + + | 2022-11-20 00:00 | Incarcerated hernia | [facility] | + + + + | 2022-11-21 [...] + + + | 2022-11-21 09:12 | USP (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 | [facility] | | | SYSTEMIC STEROIDS | | + + + + | 2022-11-21 09:12 | USP (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 | [facility] | | | OPIATE ANALGESIC | | + + + + | 2022-11-21 09:12 | OTHER USP (CURRENT) | [facility] | | | DRUG [...] STATES | | + + + + Procedures + + + + | date | description | facility | + + + + | 2022-11-20 00:00 | Repair of incisional | [facility] | | | hernia | | + + + + | 2022-11-15 00:00 | Laparotomy | [facility] | + + + + Results/Labs [...] 2 | + + + + + +-------+---------+ + | | 2022-09-01 | [facility] | 134 | mg/dL | (missing) | | (unavailable | 14:28:07 | [facility] | | | | + + + +-------+---------+ + + + | Result panel 3 | + + + + + +-----+---------+ + | | 2022-09-01 | [facility] | 9 | mg/dL | (missing) | | (unavailable | 14:28:07 | [facility] | | | | + + + +-----+---------+ + + + | Result panel 4 | + + + + + +--------+---------+ + | | 2022-09-01 | [facility] | 0.90 | mg/dL | (missing) | | (unavailable | 14:28:07 | [facility] | | | | + + + +--------+---------+ + + + | Result panel 5 | + + + + + +------+ + + | | 2022-09-01 | [facility] | 72 | (missing) | (missing) | | (unavailable | 14:28:07 | [facility] | | | | + + + +------+ + + + + | Result panel 6 | + + + + + +---------+ + + | | 2022-09-01 | [facility] | 10.00 | (missing) | (missing) | | (unavailable | 14:28:07 | [facility] | | | | + + + +---------+ + + + + | Result panel 7 | + + + + + +-------+ + + | | 2022-09-01 | [facility] | 139 | (missing) | (missing) | | (unavailable | 14:28:07 | [facility] | | | | + + + +-------+ + + + + | Result panel 8 | + + + + + +-------+ [...] 10 | + + + + + +------+ + + | | 2022-09-01 | [facility] | 28 | (missing) | (missing) | | (unavailable | 14:28:07 | [facility] | | | | + + + +------+ + + + + | Result panel 11 | + + + + + +--------+ + + | | 2022-09-01 | [facility] | 14.2 | (missing) | (missing) | | (unavailable | 14:28:07 | [facility] | | | | + + + +--------+ + + + + | Result panel 12 | + + + + + +-------+---------+ + | | 2022-09-01 | [facility] | 9.4 | mg/dL | (missing) | | (unavailable | 14:28:07 | [facility] | | | | + + + +-------+---------+ + + + | Result panel 13 [...] 15 | + + + + + +-------+ + + | | 2022-09-01 | [facility] | 3.7 | (missing) | (missing) | | (unavailable | 14:28:07 | [facility] | | | | + + + +-------+ + + + + | Result panel 16 | + + + + + +--------+ + + | | 2022-09-01 | [facility] | 1.03 | (missing) | (missing) | | (unavailable | 14:28:07 | [facility] | | | | + + + +--------+ + + + + | Result panel 17 | + + + + + +-------+ [...] 19 | + + + + + +------+ + + | | 2022-09-01 | [facility] | 17 | (missing) | (missing) | | (unavailable | 14::07 | [facility] | | | | + + + +------+ + + + + | Result panel 20 | + + + + + +------+ + + | | 2022-09-01 | [facility] | 91 | (missing) | (missing) | | (unavailable | 14:28:07 | [facility] | | | | + + + +------+ + + + + | Result panel 21 | + + + + + +------+ [...] 23 | + + + + + +--------+ [...] 25 | + + + + + +--------+ + + | | 2022-09-01 | [facility] | 45.8 | (missing) | (missing) | | (unavailable | 14:28:07 | [facility] | | | | + + + +--------+ + + + + | Result panel 26 | + + + + + +--------+ + + | | 2022-09-01 | [facility] | 97.6 | (missing) | (missing) | | (unavailable | 14:28:07 | [facility] | | | | + + + +--------+ + + + + | Result panel 27 | + + + + + +--------+ + + | | 2022-09-01 | [facility] | 31.5 | (missing) | (missing) | | (unavailable | 14:28:07 | [facility] | | | | + + + +--------+ + + + + | Result panel 28 | + + + + + +--------+ [...] 31 | + + + + + +--------+ + + | | 2022-09-01 | [facility] | 83.0 | (missing) | (missing) | | (unavailable | 14::07 | [facility] | | | | + + + +--------+ + + + + | Result panel 32 | + + + + + +-------+ + + | | 2022-09-01 | [facility] | 9.6 | (missing) | (missing) | | (unavailable | 14:28:07 | [facility] | | | | + + + +-------+ + + + + | Result panel 33 | + + + + + +-------+ + + | | 2022-09-01 | [facility] | 5.9 | (missing) | (missing) | | (unavailable | 14:28:07 | [facility] | | | | + + + +-------+ + + + + | Result panel 34 | + + + + + +-------+ [...] 95 | + + + + + + [...] 98 | + + + + + +---------+ + + | Character | 2022-11-20 | [facility] | CLEAR | (missing) | (missing) | | of Urine | 17:00 | [facility] | [facility] | | | | + + + +---------+ + + + + | Result panel 99 | + + + + + + [...] 101 | + + + + + + [...] 102 | + + + + + +---------+ [...] 104 | + + + + + +-------+ [...] (missing) | | plasma | 09:12 | [facility] | | | | | alkaline | [...] 115 | + + + + + +--------+ [...] 116 | + + + + + +--------+ [...] 117 | + + + + + +--------+ + + | Automated | 2022-11-23 | [facility] | 31.3 | (missing) | (missing) | | blood | 05:15 | [facility] | | | | | hematocrit | | Hospital | | | | + + + +--------+ + + + + | Result panel 118 | + + + + + +--------+ [...] 122 | + + + + + +-------+ [...] 124 | + + + + + +-------+ [...] 125 | + + + + + +-------+ [...] 127 | + + + + + +-------+ [...] 129 | + + + + + +-----+ [...] 130 | + + + + + +--------+ [...] 132 | + + + + + +---------+ [...] 133 | + + + + + +-------+ [...] 134 | + + + + + +-------+ [...] 136 | + + + + + +------+ [...] 140 | + + + + + +-------+ [...] | + + + +-------+ + + Social History + + + + | date | description | facility | + + + + | 2022-11-15 00:00 | Never smoker | [facility] | + + + + | 2022-11-28 00:00 | Never smoker | [facility] | + + + + Vital [...]
--- OUTSIDE RECORDS SUMMARY | ~2023-01-18 | XMS | Continuity of Care Document ---
Demographics + + + | Address | [address] | | | [place] [address] | + + + | Preferred Language | Unknown | + + + | Marital Status | | + + + | Denominational Affiliation | Unknown | + + + | Race | White | + + + | Ethnic Group | Not or | + + + Author + + + | Author | [facility] | + + + | Organization | [facility] | + + + | Address | [address] | | | [place] [address] | + + + | Phone | | + + + Care Team Providers + + + + | Care Pre Press Manager Name | Role | Phone | [...] + + | 2022-11-15 00:00 | sennosides, LONG TERM 8.6 MG | [facility] | | | Oral Tablet | | + + + + | 2022-11-28 00:00 | sennosides, LONG TERM 8.6 MG | [facility] [...] + + + | 2022-11-15 00:00 | [id number] 200 ACTUAT | [facility] | | | albuterol 0.09 MG/ACTUAT | | | | Metered Dose I | | + + + + | 2022-11-28 00:00 | [id number] 200 ACTUAT | [facility] [...] + + + | 2022-09-01 13:18 | DETENTION (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 | [facility] | | [...] + + | 2022-10-03 13:51 | 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
[~2023-01-18 04:56] MED LIST changes: +FAMOTIDINE20 MG PO; +HYDROCODON-ACE1 EAC8 PO; +HYDROMORPHONE HC4 MG PO; +TYLENOL EXTRA500 MG PO
--- OUTSIDE RECORDS SUMMARY | 2023-01-18 04:59 | XMS ---
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 [facility] VISIT COUNT (12 MO.) 4 [facility] TOTAL 4 NOTE: Visits indicate total known visits. ED/UCC VISIT TRACKING (12 MO.) 01/18/2023 04:57 [facility] [place] TYPE: Emergency COMPLAINT: - ABD PAIN 11/20/2022 14:39 [facility] [place] TYPE: Emergency COMPLAINT: - ABDOMINAL PAIN 10/03/2022 13:51 [facility] [place] TYPE: Emergency COMPLAINT: - ABDOMINAL PAIN DIAGNOSES: - Allergy to milk products - Disease of pancreas, unspecified - Food additives allergy status - Other assisted (current) drug therapy - Unspecified asthma, uncomplicated - Upper abdominal pain, unspecified 09/01/2022 13:18 [facility] [place] TYPE: Emergency COMPLAINT: - ABD PAIN, NAUSEA, ACID DIAGNOSES: - Allergy to milk products - Epigastric pain - Gastritis, unspecified, without bleeding - MCFP (current) use of systemic steroids - Urinary tract infection, site not specified INPATIENT VISIT TRACKING (12 MO.) 11/21/2022 09:12 [facility] TYPE: Medical Surgical COMPLAINT: - HERNIA, ABDOMINAL PAIN DIAGNOSES: - Allergy status to anesthetic agent - Allergy status to anesthetic agent - Allergy to milk products - Allergy to milk products - Body mass index [BMI] 33.0-33.9, adult - Body mass index [BMI] 33.0-33.9, adult - Cataract extraction status, left eye - Cataract extraction status, left eye - Cataract extraction status, right eye - Cataract extraction status, right eye - Chronic obstructive pulmonary disease, unspecified - Chronic obstructive pulmonary disease, unspecified - Constipation, unspecified - Constipation, unspecified - Encounter for palliative care - Encounter for palliative care - Food additives allergy status - Food additives allergy status - Incisional hernia with obstruction, without gangrene - Incisional hernia with obstruction, without gangrene - MCFP (current) use of opiate analgesic - MCFP (current) use of opiate analgesic - MCFP (current) use of systemic steroids - intermediate manager (current) use of systemic steroids - Malignant neoplasm of endocrine pancreas - Malignant neoplasm of other parts of pancreas - Malignant neoplasm of pancreas, unspecified - Malignant neoplasm of pancreas, unspecified - Morbid (severe) obesity due to excess calories - Morbid (severe) obesity due to excess calories - Neoplasm related pain (acute) (chronic) - Neoplasm related pain (acute) (chronic) - Other assisted (current) drug therapy - Other intermediate manager (current) drug therapy - Other specified postprocedural states - Other specified postprocedural states - Other vascular disorders of intestine - Secondary malignant neoplasm of liver and intrahepatic bile duct - Secondary malignant neoplasm of liver and intrahepatic bile duct - Secondary malignant neoplasm of retroperitoneum and peritoneum - Secondary malignant neoplasm of retroperitoneum and peritoneum - Tubal ligation status - Tubal ligation status - Umbilical hernia without obstruction or gangrene - Umbilical hernia without obstruction or gangrene - Unspecified asthma, uncomplicated - Upper abdominal pain, unspecified [email or web address]
[2023-01-18] MEDS ORDERED: FENTANYL1 EAC7 TD (05:07)
[2023-01-18 05:11] LABS: BASOPHILS 0.6 % (0-2); HEMATOCRIT 37.5 % (35.0-50.0)
[2023-01-18 05:13] LABS: EOSINOPHILS 1.7 % (0-6); LYMPHOCYTES 6.9 % (24-44); MCH 33.5 (27-36); MCHC 32.1 g/dl (30-36); MCV 104.2 fl (81-99); NEUTROPHILS 83.8 % (39-80); PLATELET COUNT 260 K/uL (140-440)
[2023-01-18 05:26] LABS: ALBUMIN/GLOBULIN RATIO 0.69 (1.1-2.4); ANION GAP 9.3 (7-21); BILIRUBIN, TOTAL 0.4 ng/dL (0.2-1.0); BUN/CREATININE RATIO 22.22 (6.0-28.6); CALCIUM 8.1 mg/dL (8.5-10.1); CREATININE, SERUM 0.54 mg/dL (0.55-1.02); POTASSIUM 4.3 mmol/L (3.5-5.1); PROTEIN, TOTAL 4.9 g/dL (6.4-8.2)
[2023-01-18 07:42] LABS: BILIRUBIN, URINE NEGATIVE (negative); BLOOD/HGB, URINE NEGATIVE (Negative); KETONE, URINE NEGATIVE (Negative); LEUK ESTERASE, URINE TRACE (negative); NITRITE, URINE NEGATIVE (negative); PH, URINE 7.5 (5-7)
[2023-01-18 07:54] LABS: RED BLOOD CELLS, URINE 0-1 /hpf (0-5)
[2023-01-18 07:55] LABS: BACTERIA, URINE NONE SEEN /hpf (negative); CASTS, URINE NONE SEEN \\lpf; COLLECTION TYPE, URINE CLEAN CATCH; CRYSTALS, URINE NONE SEEN (0-1+); EPITHELIAL CELLS, URINE SQUAMOUS 1+ /lpf (0-1+); REFLEX CULTURE, URINE No (No)
[2023-01-18 08:21] VITALS: BP 105/63
[2023-01-18 09:59] LABS: APPEARANCE, BODY FLUID STRAW CLEAR
[2023-01-18 10:00] LABS: RBC, BODY FLUID 317 cells/mm3; SOURCE, BODY FLUID abd wall seroma; WBC, BODY FLUID 160 cells/mm3
== END 2023-01-18 08:21 | disposition home or self-care (01) ==
LOC: ED 04:56
PROVIDERS: Internal Medicine
DX: M96.843 Postprocedural seroma of a musculoskeletal structure following other procedure (principal); J44.9 Chronic obstructive pulmonary disease, unspecified; E66.01 Morbid (severe) obesity due to excess calories; J45.909 Unspecified asthma, uncomplicated; Z91.011 Allergy to milk products; Z88.8 Allergy status to other drugs, medicaments and biological substances; Z79.899 Other long term (current) drug therapy; Z79.52 Long term (current) use of systemic steroids
CPT/HCPCS: 36415; 49083; 51798; 71045; 74177; 80053; 81001; 82553; 83690; 85025; 87070; 87075; 87205; 89051; 99284-25; J1720; J1885; J7121; Q9967

== ENCOUNTER 2023-01-19 15:54 | Emergency (ER) | payer OTHER ==
[~2023-01-19] VITALS: Ht 170.2 cm; Wt 99.3 kg
--- OUTSIDE RECORDS SUMMARY | ~2023-01-19 | XMS | Continuity of Care Document ---
Demographics + + + | Address | [address] | | | [place] [address] | + + + | Preferred Language | Unknown | + + + | Marital Status | | + + + | Gnosticism Affiliation | Unknown | + + + | Race | White | + + + | Ethnic Group | Not or | + + + Author + + + | Author | [facility] | + + + | Organization | [facility] | + + + | Address | [address] | | | [place] [address] | + + + | Phone | | + + + Care Team Providers + + + + | Care Topographical Surveyor Name | Role | Phone | + + + + Unavailable | Unavailable | + + + + Unavailable | Unavailable | + + + + Unavailable | Unavailable | + + + + Unavailable | Unavailable | + + + + Allergies and Intolerances + + + + + + | date | description | facility | reaction | severity | + + + + + + | (no date) | Upset stomach | [facility] | (no reaction) | (no severity) | | | [facility] | | + + + + + + | (no date) | Ketamine | [facility] | (no reaction) | (no severity) | | | | [facility] | | | + + + + + + | (no date) | Anaphylaxis | [facility] | (no reaction) | (no severity) | | | | [facility] | | | + + + + + + | (no date) | Ketamine | [facility] | (no reaction) | (no severity) | | | | [facility] | | | + + + + + + | (no date) | ketamine | [facility] | (no reaction) | (no severity) | | | | [facility] | | | + + + + + + | (no date) | Ketamine | [facility] | (no reaction) | (no severity) | | | | [facility] | | | + + + + + + | (no date) | Hallucinations | [facility] | (no reaction) | (no severity) | | | | [facility] | | | + + + + + + | (no date) | Milk | [facility] | (no reaction) | (no severity) | | | | [facility] | | | + + + + + + | (no date) | Milk | [facility] | (no reaction) | (no severity) | | | | [facility] | | | + + + + + + | (no date) | milk | [facility] | (no reaction) | (no severity) | | | | [facility] | | | + + + + + + | (no date) | ketamine | [facility] | (no reaction) | (no severity) | + + + + + + | (no date) | milk | [facility] | (no reaction) | (no severity) | + + + + + + | (no date) | PRESERVATIVES | [facility] | (no reaction) | (no severity) | + + + + + + Encounters No information. Functional Status No information. Immunizations + + + + | date | description | facility | + + + + | 2022-11-15 00:00 | No vaccine administered | [facility] | + + + + | 2022-11-28 00:00 | No vaccine administered | [facility] | + + + + Medications + + + + | date | description | facility | + + + + | 2022-11-15 00:00 | OXYCODONE HCL | [facility] | + + + + | 2023-01-18 00:00 | OXYCODONE HCL | [facility] | + + + + | 2022-11-15 00:00 | oxycodone hydrochloride 5 | [facility] | | | MG Oral Tablet | | + + + + | 2022-11-28 00:00 | oxycodone hydrochloride 5 | [facility] | | | MG Oral Tablet | | + + + + | 2016-03-11 00:00 | OXYCODONE | [facility] | | | HCL/ACETAMINOPHEN | | + + + + | 2016-03-11 00:00 | OXYCODONE | [facility] | | | HCL/ACETAMINOPHEN | | + + + + | 2016-03-11 00:00 | acetaminophen 325 MG / | [facility] | | | oxycodone hydrochloride 5 | | | | MG Oral Tab | | + + + + | 2022-11-15 00:00 | 120 ACTUAT albuterol 0.1 | [facility] | | | MG/ACTUAT / ipratropium | | | | bromide 0.0 | | + + + + | 2022-11-28 00:00 | 120 ACTUAT albuterol 0.1 | [facility] | | | MG/ACTUAT / ipratropium | | | | bromide 0.0 | | + + + + | 2022-09-01 00:00 | IPRATROPIUM/ALBUTEROL | [facility] | | | SULFATE | | + + + + | 2022-10-03 00:00 | IPRATROPIUM/ALBUTEROL | [facility] | | | SULFATE | | + + + + | 2022-11-15 00:00 | IPRATROPIUM/ALBUTEROL | [facility] | | | SULFATE | | + + + + | 2023-01-18 00:00 | IPRATROPIUM/ALBUTEROL | [facility] | | | SULFATE | | + + + + | 2023-01-18 00:00 | IPRATROPIUM/ALBUTEROL | [facility] | | | SULFATE | | + + + + | 2022-11-28 00:00 | albuterol 0.833 MG/ML / | [facility] | | | ipratropium bromide 0.167 | | | | MG/ML Inha | | + + + + | 2023-01-18 00:00 | FENTANYL | [facility] | + + + + | 2022-09-01 00:00 | predniSONE | [facility] | + + + + | 2022-10-03 00:00 | predniSONE | [facility] | + + + + | 2022-11-15 00:00 | predniSONE | [facility] | + + + + | 2023-01-18 00:00 | predniSONE | [facility] | + + + + | 2022-11-15 00:00 | prednisone 10 MG Oral | [facility] | | | Tablet | | + + + + | 2022-11-28 00:00 | prednisone 10 MG Oral | [facility] | | | Tablet | | + + + + | 2022-11-27 00:00 | ACETAMINOPHEN | [facility] | + + + + | 2022-11-27 00:00 | acetaminophen 500 MG Oral | [facility] | | | Tablet | | + + + + | 2022-09-01 00:00 | CEFDINIR | [facility] | + + + + | 2022-09-01 00:00 | CEFDINIR | [facility] | + + + + | 2022-09-01 00:00 | cefdinir 300 MG Oral | [facility] | | | Capsule | | + + + + | 2022-09-01 00:00 | LORATADINE | [facility] | + + + + | 2022-10-03 00:00 | LORATADINE | [facility] | + + + + | 2022-11-15 00:00 | LORATADINE | [facility] | + + + + | 2023-01-18 00:00 | LORATADINE | [facility] | + + + + | 2022-11-15 00:00 | loratadine 10 MG Oral | [facility] | | | Tablet [Claritin] | | + + + + | 2022-11-28 00:00 | loratadine 10 MG Oral | [facility] | | | Tablet [Claritin] | | + + + + | 2014-11-05 00:00 | LEVOFLOXACIN | [facility] | + + + + | 2014-11-05 00:00 | LEVOFLOXACIN | [facility] | + + + + | 2014-11-05 00:00 | levofloxacin 500 MG Oral | [facility] | | | Tablet [Levaquin] | | + + + + | 2016-03-11 00:00 | CEPHALEXIN | [facility] | + + + + | 2016-03-11 00:00 | CEPHALEXIN | [facility] | + + + + | 2016-03-11 00:00 | cephalexin 250 MG Oral | [facility] | | | Capsule [Keflex] | | + + + + | 2022-11-27 00:00 | FAMOTIDINE | [facility] | + + + + | 2022-11-27 00:00 | famotidine 20 MG Oral | [facility] | | | Tablet | | + + + + | 2022-09-01 00:00 | GABAPENTIN | [facility] | + + + + | 2022-10-03 00:00 | GABAPENTIN | [facility] | + + + + | 2022-11-15 00:00 | GABAPENTIN | [facility] | + + + + | 2023-01-18 00:00 | GABAPENTIN | [facility] | + + + + | 2022-11-15 00:00 | gabapentin 300 MG Oral | [facility] | | | Capsule | | + + + + | 2022-11-28 00:00 | gabapentin 300 MG Oral | [facility] | | | Capsule | | + + + + | 2022-09-01 00:00 | IBUPROFEN | [facility] | + + + + | 2022-10-03 00:00 | IBUPROFEN | [facility] | + + + + | 2022-11-15 00:00 | IBUPROFEN | [facility] | + + + + | 2023-01-18 00:00 | IBUPROFEN | [facility] | + + + + | 2022-11-15 00:00 | ibuprofen 200 MG Oral | [facility] | | | Tablet | | + + + + | 2022-11-28 00:00 | ibuprofen 200 MG Oral | [facility] | | | Tablet | | + + + + | 2022-10-03 00:00 | ONDANSETRON | [facility] | + + + + | 2022-11-15 00:00 | ONDANSETRON | [facility] | + + + + | 2023-01-18 00:00 | ONDANSETRON | [facility] | + + + + | 2022-10-03 00:00 | ondansetron 8 MG | [facility] | | | Disintegrating Oral Tablet | | + + + + | 2022-11-15 00:00 | ondansetron 8 MG | [facility] | | | Disintegrating Oral Tablet | | + + + + | 2022-11-28 00:00 | ondansetron 8 MG | [facility] | | | Disintegrating Oral Tablet | | + + + + | 2022-09-01 00:00 | predniSONE | [facility] | + + + + | 2022-10-03 00:00 | predniSONE | [facility] | + + + + | 2022-11-15 00:00 | predniSONE | [facility] | + + + + | 2023-01-18 00:00 | predniSONE | [facility] | + + + + | 2022-11-15 00:00 | prednisone 20 MG Oral | [facility] | | | Tablet | | + + + + | 2022-11-28 00:00 | prednisone 20 MG Oral | [facility] | | | Tablet | | + + + + | 2022-09-01 00:00 | PREDNISONE | [facility] | + + + + | 2022-10-03 00:00 | PREDNISONE | [facility] | + + + + | 2022-11-15 00:00 | PREDNISONE | [facility] | + + + + | 2023-01-18 00:00 | PREDNISONE | [facility] | + + + + | 2022-11-15 00:00 | prednisone 5 MG Oral | [facility] | | | Tablet | | + + + + | 2022-11-28 00:00 | prednisone 5 MG Oral | [facility] | | | Tablet | | + + + + | 2022-11-15 00:00 | SENNOSIDES | [facility] | + + + + | 2023-01-18 00:00 | SENNOSIDES | [facility] | + + + + | 2022-11-15 00:00 | sennosides, GROUP HOME 8.6 MG | [facility] | | | Oral Tablet | | + + + + | 2022-11-28 00:00 | sennosides, GROUP HOME 8.6 MG | [facility] | | | Oral Tablet | | + + + + | 2022-09-01 00:00 | VALACYCLOVIR HCL | [facility] | + + + + | 2022-10-03 00:00 | VALACYCLOVIR HCL | [facility] | + + + + | 2022-11-15 00:00 | VALACYCLOVIR HCL | [facility] | + + + + | 2023-01-18 00:00 | VALACYCLOVIR HCL | [facility] | + + + + | 2022-11-15 00:00 | valacyclovir 1000 MG Oral | [facility] | | | Tablet | | + + + + | 2022-11-28 00:00 | valacyclovir 1000 MG Oral | [facility] | | | Tablet | | + + + + | 2022-09-01 00:00 | TRAMADOL HCL | [facility] | + + + + | 2022-09-01 00:00 | TRAMADOL HCL | [facility] | + + + + | 2022-09-01 00:00 | THEOPHYLLINE ANHYDROUS | [facility] | + + + + | 2022-10-03 00:00 | THEOPHYLLINE ANHYDROUS | [facility] | + + + + | 2022-11-15 00:00 | THEOPHYLLINE ANHYDROUS | [facility] | + + + + | 2023-01-18 00:00 | THEOPHYLLINE ANHYDROUS | [facility] | + + + + | 2022-11-15 00:00 | theophylline 200 MG | [facility] | | | Extended Release Oral | | | | Capsule [Hunter-24] | | + + + + | 2022-11-28 00:00 | theophylline 200 MG | [facility] | | | Extended Release Oral | | | | Capsule [Hunter-24] | | + + + + | 2014-01-04 00:00 | | [facility] | | | SULFAMETHOXAZOLE/TRIMETHOPR | | | | IM DS | | + + + + | 2014-01-04 00:00 | | [facility] | | | SULFAMETHOXAZOLE/TRIMETHOPR | | | | IM DS | | + + + + | 2016-02-17 00:00 | | [facility] | | | SULFAMETHOXAZOLE/TRIMETHOPR | | | | IM DS | | + + + + | 2016-02-17 00:00 | | [facility] | | | SULFAMETHOXAZOLE/TRIMETHOPR | | | | IM DS | | + + + + | 2014-01-04 00:00 | sulfamethoxazole 800 MG / | [facility] | | | trimethoprim 160 MG Oral | | | | Tablet [B | | + + + + | 2016-02-17 00:00 | sulfamethoxazole 800 MG / | [facility] | | | trimethoprim 160 MG Oral | | | | Tablet [B | | + + + + | 2022-11-28 00:00 | acetaminophen 325 MG / | [facility] | | | hydrocodone bitartrate 10 | | | | MG Oral Tab | | + + + + | 2022-09-01 00:00 | HYDROCODONE | [facility] | | | BIT/ACETAMINOPHEN | | + + + + | 2022-10-03 00:00 | HYDROCODONE | [facility] | | | BIT/ACETAMINOPHEN | | + + + + | 2022-11-15 00:00 | HYDROCODONE | [facility] | | | BIT/ACETAMINOPHEN | | + + + + | 2023-01-18 00:00 | HYDROCODONE | [facility] | | | BIT/ACETAMINOPHEN | | + + + + | 2022-11-15 00:00 | acetaminophen 325 MG / | [facility] | | | hydrocodone bitartrate 5 MG | | | | Oral Tabl | | + + + + | 2022-11-28 00:00 | acetaminophen 325 MG / | [facility] | | | hydrocodone bitartrate 5 MG | | | | Oral Tabl | | + + + + | 2014-11-05 00:00 | HYDROCODONE | [facility] | | | BIT/ACETAMINOPHEN | | + + + + | 2014-11-05 00:00 | HYDROCODONE | [facility] | | | BIT/ACETAMINOPHEN | | + + + + | 2014-11-05 00:00 | acetaminophen 325 MG / | [facility] | | | hydrocodone bitartrate 5 MG | | | | Oral Tabl | | + + + + | 2022-10-03 00:00 | HYDROCODONE | [facility] | | | BIT/ACETAMINOPHEN | | + + + + | 2022-10-03 00:00 | acetaminophen 325 MG / | [facility] | | | hydrocodone bitartrate 7.5 | | | | MG Oral Ta | | + + + + | 2022-09-01 00:00 | ALBUTEROL SULFATE | [facility] | + + + + | 2022-10-03 00:00 | ALBUTEROL SULFATE | [facility] | + + + + | 2022-11-15 00:00 | ALBUTEROL SULFATE | [facility] | + + + + | 2023-01-18 00:00 | ALBUTEROL SULFATE | [facility] | + + + + | 2022-11-15 00:00 | [id number] 200 ACTUAT | [facility] | | | albuterol 0.09 MG/ACTUAT | | | | Metered Dose I | | + + + + | 2022-11-28 00:00 | [id number] 200 ACTUAT | [facility] | | | albuterol 0.09 MG/ACTUAT | | | | Metered Dose I | | + + + + | 2022-11-15 00:00 | HYDROMORPHONE HCL | [facility] | + + + + | 2022-11-15 00:00 | hydromorphone | [facility] | | | hydrochloride 2 MG Oral | | | | Tablet [Dilaudid] | | + + + + | 2022-11-27 00:00 | hydromorphone | [facility] | | | hydrochloride 4 MG Oral | | | | Tablet | | + + + + | 2022-11-15 00:00 | 120 ACTUAT budesonide 0.18 | [facility] | | | MG/ACTUAT Dry Powder | | | | Inhaler [Pul | | + + + + | 2022-11-28 00:00 | 120 ACTUAT budesonide 0.18 | [facility] | | | MG/ACTUAT Dry Powder | | | | Inhaler [Pul | | + + + + | 2022-09-01 00:00 | BUDESONIDE | [facility] | + + + + | 2022-10-03 00:00 | BUDESONIDE | [facility] | + + + + | 2022-11-15 00:00 | BUDESONIDE | [facility] | + + + + | 2023-01-18 00:00 | BUDESONIDE | [facility] | + + + + Problems + + + + | date | description | facility | + + + + | 2014-11-02 00:00 | Sepsis | [facility] | + + + + | 2014-11-02 00:00 | Sepsis | [facility] | + + + + | 2015-07-06 00:00 | Laceration of right lower | [facility] | | | leg with complication | | + + + + | 2015-07-06 00:00 | Laceration of right lower | [facility] | | | leg with complication | | + + + + | 2015-07-06 00:00 | History of conscious | [facility] | | | sedation | | + + + + | 2015-07-06 00:00 | History of conscious | [facility] | | | sedation | | + + + + | 2016 00:00 | Cellulitis of right foot | [facility] | + + + + | 2016 00:00 | Cellulitis of right foot | [facility] | + + + + | 2016-02-16 00:00 | Sepsis, Gram positive | [facility] | + + + + | 2016-02-16 00:00 | Morbid obesity with BMI of | [facility] | | | 40.0-44.9, adult | | + + + + | 2016-02-16 00:00 | Transaminitis | [facility] | + + + + | 2016-02-16 00:00 | Gram positive sepsis | [facility] | + + + + | 2016-02-16 00:00 | Gram positive sepsis | [facility] | + + + + | 2016-02-16 00:00 | Herpes zoster | [facility] | + + + + | 2016-02-16 00:00 | Herpes zoster | [facility] | + + + + | 2016-02-16 00:00 | Morbid obesity with body | [facility] | | | mass index (BMI) of 40.0 to | | | | 44.9 in adult | | + + + + | 2016-02-16 00:00 | Morbid obesity with body | [facility] | | | mass index (BMI) of 40.0 to | | | | 44.9 in adult | | + + + + | 2016-02-16 00:00 | Chronic pain syndrome | [facility] | + + + + | 2016-02-16 00:00 | Chronic pain syndrome | [facility] | + + + + | 2016-02-16 00:00 | Steroid-dependent asthma | [facility] | + + + + | 2016-02-16 00:00 | Steroid-dependent asthma | [facility] | + + + + | 2016-02-16 00:00 | Elevated transaminase | [facility] | | | measurement | | + + + + | 2016-02-16 00:00 | Elevated transaminase | [facility] | | | measurement | | + + + + | 2016-03-11 00:00 | Contusion of left shoulder | [facility] | | | | | + + + + | 2016-03-11 00:00 | Contusion of left shoulder | [facility] | | | | | + + + + | 2016-03-11 00:00 | Skin tear of left upper | [facility] | | | extremity | | + + + + | 2016-03-11 00:00 | Skin tear of left upper | [facility] | | | extremity | | + + + + | 2016-03-11 00:00 | Tear of skin of multiple | [facility] | | | sites of lower extremity | | + + + + | 2016-03-11 00:00 | Tear of skin of multiple | [facility] | | | sites of lower extremity | | + + + + | 2016-03-11 00:00 | Fall from ground level | [facility] | + + + + | 2016-03-11 00:00 | Fall from ground level | [facility] | + + + + | 2022-09-01 00:00 | UTI (urinary tract | [facility] | | | infection) | | + + + + | 2022-09-01 00:00 | Gastritis | [facility] | + + + + | 2022-09-01 00:00 | Gastritis | [facility] | + + + + | 2022-09-01 00:00 | Urinary tract infection | [facility] | + + + + | 2022-09-01 00:00 | Urinary tract infection | [facility] | + + + + | 2022-09-01 13:18 | GASTRITIS, UNSPECIFIED, | [facility] | | | WITHOUT BLEEDING | | + + + + | 2022-09-01 13:18 | URINARY TRACT INFECTION, | [facility] | | | SITE NOT SPECIFIED | | + + + + | 2022-09-01 13:18 | EPIGASTRIC PAIN | [facility] | + + + + | 2022-09-01 13:18 | CLINICAL SOCIAL WORK THERAPIST (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 | [facility] | | | SYSTEMIC STEROIDS | | + + + + | 2022-09-01 13:18 | ALLERGY TO MILK PRODUCTS | [facility] | + + + + | 2022-10-03 00:00 | Mass of pancreas | [facility] | + + + + | 2022-10-03 00:00 | Dyspepsia | 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 | | + + + + | 2022-11-15 09:57 | NEOPLASM OF UNSPECIFIED | [facility] | | | BEHAVIOR OF DIGESTIVE | | | | SYSTEM | | + + + + | 2022-11-15 09:57 | MORBID (SEVERE) OBESITY | [facility] | | | DUE TO EXCESS CALORIES | | + + + + | 2022-11-15 09:57 | CHRONIC OBSTRUCTIVE | [facility] | | | PULMONARY DISEASE, | | | | UNSPECIFIED | | + + + + | 2022-11-15 09:57 | ENLARGED LYMPH NODES, | [facility] | | | UNSPECIFIED | | + + + + | 2022-11-15 09:57 | BODY MASS INDEX (BMI) | [facility] | | | 33.0-33.9, ADULT | | + + + + | 2022-11-15 09:57 | OTHER ASSISTED (CURRENT) | [facility] | | | DRUG [...] | | + + + + | 2022-11-20 00:00 | Incarcerated hernia | [facility] | + + + + | 2022-11-20 00:00 | Hernia | [facility] | + + + + | 2022-11-20 00:00 | Abdominal pain | 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 | | + + + + | 2022-11-21 09:12 | MORBID (SEVERE) OBESITY | [facility] | | | DUE TO EXCESS CALORIES | | + + + + | 2022-11-21 09:12 | NEOPLASM RELATED PAIN | [facility] | | | (ACUTE) (CHRONIC) | | + + + + | 2022-11-21 09:12 | CHRONIC OBSTRUCTIVE | [facility] | | | PULMONARY DISEASE, | | | | UNSPECIFIED | | + + + + | 2022-11-21 09:12 | UNSPECIFIED ASTHMA, | [facility] | | | UNCOMPLICATED | | + + + + | 2022-11-21 09:12 | UMBILICAL HERNIA WITHOUT | [facility] | | | OBSTRUCTION OR GANGRENE | | + + + + | 2022-11-21 09:12 | INCISIONAL HERNIA WITH | [facility] | | | OBSTRUCTION, WITHOUT GANGRE | | | | | | + + + + | 2022-11-21 09:12 | OTHER VASCULAR DISORDERS | [facility] | | | OF INTESTINE | | + + + + | 2022-11-21 09:12 | CONSTIPATION, UNSPECIFIED | [facility] | + + + + | 2022-11-21 09:12 | UPPER ABDOMINAL PAIN, | [facility] | | | UNSPECIFIED | | + + + + | 2022-11-21 09:12 | ENCOUNTER FOR PALLIATIVE | [facility] | | | CARE | | + + + + | 2022-11-21 09:12 | BODY MASS INDEX (BMI) | [facility] | | | 33.0-33.9, ADULT | | + + + + | 2022-11-21 09:12 | ASSISTED (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 | [facility] | | | SYSTEMIC STEROIDS | | + + + + | 2022-11-21 09:12 | CLINICAL SOCIAL WORK THERAPIST (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 | [facility] | | | OPIATE ANALGESIC | | + + + + | 2022-11-21 09:12 | OTHER ASSISTED (CURRENT) | [facility] | | | DRUG THERAPY | | + + + + | 2022-11-21 09:12 | ALLERGY STATUS TO | [facility] | | | ANESTHETIC AGENT STATUS | | + + + + | 2022-11-21 09:12 | ALLERGY TO MILK PRODUCTS | [facility] | + + + + | 2022-11-21 09:12 | FOOD ADDITIVES ALLERGY | [facility] | | | STATUS | | + + + + | 2022-11-21 09:12 | CATARACT EXTRACTION | [facility] | | | STATUS, RIGHT EYE | | + + + + | 2022-11-21 09:12 | CATARACT EXTRACTION | [facility] | | | STATUS, LEFT EYE | | + + + + | 2022-11-21 09:12 | TUBAL LIGATION STATUS | [facility] | + + + + | 2022-11-21 09:12 | OTHER SPECIFIED | [facility] | | | POSTPROCEDURAL STATES | | + + + + | 2023-01-18 00:00 | Abdominal wall seroma | [facility] | + + + + Procedures + + + + | date | description | facility | + + + + | 2022-11-20 00:00 | Repair of incisional | [facility] | | | hernia | | + + + + | 2022-11-15 00:00 | Laparotomy | [facility] | + + + + Results/Labs +--------+--------+ +---------+--------+---------+ | test | date | facility | value | unit | notes | +--------+--------+ +---------+--------+---------+ + + | Result panel 1 | + + + + + +-------+ + + | | 2022-09-01 | [facility] | 9.3 | (missing) | (missing) | | (unavailable | 14:28:07 [facility] | | | | + + + +-------+ + + + + | Result panel 2 | + + + + + +--------+ + + | | 2022-09-01 | [facility] | 4.69 | (missing) | (missing) | | (unavailable | 14:28:07 | [facility] | | | | + + + +--------+ + + + + | Result panel 3 | + + + + + +--------+ + + | | 2022-09-01 | [facility] | 14.8 | (missing) | (missing) | | (unavailable | 14:28:07 | [facility] | | | | + + + +--------+ + + + + | Result panel 4 | + + + + + +--------+ + + | | 2022-09-01 | [facility] | 45.8 | (missing) | (missing) | | (unavailable | 14:28:07 | [facility] | | | | + + + +--------+ + + + + | Result panel 5 | + + + + + +--------+ + + | | 2022-09-01 | [facility] | 97.6 | (missing) | (missing) | | (unavailable | 14:28:07 | [facility] | | | | + + + +--------+ + + + + | Result panel 6 | + + + + + +--------+ + + | | 2022-09-01 | [facility] | 31.5 | (missing) | (missing) | | (unavailable | 14:28:07 | [facility] | | | | + + + +--------+ + + + + | Result panel 7 | + + + + + +--------+ + + | | 2022-09-01 | [facility] | 32.3 | (missing) | (missing) | | (unavailable | 14:28:07 | [facility] | | | | + + + +--------+ + + + + | Result panel 8 | + + + + + +--------+ + + | | 2022-09-01 | [facility] | 14.9 | (missing) | (missing) | | (unavailable | 14:: | [facility] | | | | + + + +--------+ + + + + | Result panel 9 | + + + + + +-------+ + + | | 2022-09-01 | [facility] | 235 | (missing) | (missing) | | (unavailable | 14:28:07 | [facility] | | | | + + + +-------+ + + + + | Result panel 10 | + + + + + +--------+ + + | | 2022-09-01 | [facility] | 83.0 | (missing) | (missing) | | (unavailable | 14:28:07 | [facility] | | | | + + + +--------+ + + + + | Result panel 11 | + + + + + +-------+ + + | | 2022-09-01 | [facility] | 9.6 | (missing) | (missing) | | (unavailable | 14:28:07 | [facility] | | | | + + + +-------+ + + + + | Result panel 12 | + + + + + +-------+ + + | | 2022-09-01 | [facility] | 5.9 | (missing) | (missing) | | (unavailable | 14:28:07 | [facility] | | | | + + + +-------+ + + + + | Result panel 13 | + + + + + +-------+ + + | | 2022-09-01 | [facility] | 0.8 | (missing) | (missing) | | (unavailable | 14:28:07 | [facility] | | | | + + + +-------+ + + + + | Result panel 14 | + + + + + +-------+ + + | | 2022-09-01 | [facility] | 0.7 | (missing) | (missing) | | (unavailable | 14:28:07 | [facility] | | | | + + + +-------+ + + + + | Result panel 15 | + + + + + +-------+---------+ + | | 2022-09-01 | [facility] | 134 | mg/dL | (missing) | | (unavailable | 14:28:07 | [facility] | | | | + + + +-------+---------+ + + + | Result panel 16 | + + + + + +-----+---------+ + | | 2022-09-01 | [facility] | 9 | mg/dL | (missing) | | (unavailable | 14:28:07 | [facility] | | | | + + + +-----+---------+ + + + | Result panel 17 | + + + + + +--------+---------+ + | | 2022-09-01 | [facility] | 0.90 | mg/dL | (missing) | | (unavailable | 14:28:07 | [facility] | | | | + + + +--------+---------+ + + + | Result panel 18 | + + + + + +------+ + + | | 2022-09-01 | [facility] | 72 | (missing) | (missing) | | (unavailable | 14:28:07 | [facility] | | | | + + + +------+ + + + + | Result panel 19 | + + + + + +---------+ + + | | 2022-09-01 | [facility] | 10.00 | (missing) | (missing) | | (unavailable | 14:28:07 | [facility] | | | | + + + +---------+ + + + + | Result panel 20 | + + + + + +-------+ + + | | 2022-09-01 | [facility] | 139 | (missing) | (missing) | | (unavailable | 14:28:07 | [facility] | | | | + + + +-------+ + + + + | Result panel 21 | + + + + + +-------+ + + | | 2022-09-01 | [facility] | 4.2 | (missing) | (missing) | | (unavailable | 14:28:07 | [facility] | | | | + + + +-------+ + + + + | Result panel 22 | + + + + + +-------+ + + | | 2022-09-01 | [facility] | 101 | (missing) | (missing) | | (unavailable | 14:28:07 | [facility] | | | | + + + +-------+ + + + + | Result panel 23 | + + + + + +------+ + + | | 2022-09-01 | [facility] | 28 | (missing) | (missing) | | (unavailable | 14:28:07 | [facility] | | | | + + + +------+ + + + + | Result panel 24 | + + + + + +--------+ + + | | 2022-09-01 | [facility] | 14.2 | (missing) | (missing) | | (unavailable | 14::07 | [facility] | | | | + + + +--------+ + + + + | Result panel 25 | + + + + + +-------+---------+ + | | 2022-09-01 | [facility] | 9.4 | mg/dL | (missing) | | (unavailable | 14:28:07 | [facility] | | | | + + + +-------+---------+ + + + | Result panel 26 | + + + + + +-------+ + + | | 2022-09-01 | [facility] | 7.5 | (missing) | (missing) | | (unavailable | 14:28:07 | [facility] | | | | + + + +-------+ + + + + | Result panel 27 | + + + + + +-------+ + + | | 2022-09-01 | [facility] | 3.8 | (missing) | (missing) | | (unavailable | 14:28:07 | [facility] | | | | + + + +-------+ + + + + | Result panel 28 | + + + + + +-------+ + + | | 2022-09-01 | [facility] | 3.7 | (missing) | (missing) | | (unavailable | 14:28:07 | [facility] | | | | + + + +-------+ + + + + | Result panel 29 | + + + + + +--------+ + + | | 2022-09-01 | [facility] | 1.03 | (missing) | (missing) | | (unavailable | 14:28:07 | [facility] | | | | + + + +--------+ + + + + | Result panel 30 | + + + + + +-------+ + + | | 2022-09-01 | [facility] | 0.7 | (missing) | (missing) | | (unavailable | 14:28:07 | [facility] | | | | + + + +-------+ + + + + | Result panel 31 | + + + + + +------+ + + | | 2022-09-01 | [facility] | 18 | (missing) | (missing) | | (unavailable | 14:28:07 | [facility] | | | | + + + +------+ + + + + | Result panel 32 | + + + + + +------+ + + | | 2022-09-01 | [facility] | 17 | (missing) | (missing) | | (unavailable | 14:28:07 | [facility] | | | | + + + +------+ + + + + | Result panel 33 | + + + + + +------+ + + | | 2022-09-01 | [facility] | 91 | (missing) | (missing) | | (unavailable | 14:28:07 | [facility] | | | | + + + +------+ + + + + | Result panel 34 | + + + + + +------+ + + | | 2022-09-01 | [facility] | 49 | (missing) | (missing) | | (unavailable | 14:28:07 | [facility] | | | | + + + +------+ + + + + | Result panel 35 | + + + + + + + + + | | 2022-09-01 | [facility] | YELLOW | (missing) | (missing) | | (unavailable | 16:38:07 | [facility] | | | | + + + + + + + + + | Result panel 36 | + + + + + +---------+ + + | | 2022-09-01 | [facility] | CLEAR | (missing) | (missing) | | (unavailable | 16:38:07 | [facility] | | | | + + + +---------+ + + + + | Result panel 37 | + + + + + + + + + | | 2022-09-01 | [facility] | NEGATIVE | (missing) | (missing) | | (unavailable | 16:38:07 | [facility] | | | | + + + + + + + + + | Result panel 38 | + + + + + + + + + | | 2022-09-01 | [facility] | NEGATIVE | (missing) | (missing) | | (unavailable | 16:38:07 | [facility] | | | | + + + + + + + + + | Result panel 39 | + + + + + +---------+ + + | | 2022-09-01 | [facility] | SMALL | (missing) | (missing) | | (unavailable | 16:38:07 | [facility] | | | | + + + +---------+ + + + + | Result panel 40 | + + + + + +---------+ + + | | 2022-09-01 | [facility] | 1.015 | (missing) | (missing) | | (unavailable | 16:38:07 | [facility] | | | | + + + +---------+ + + + + | Result panel 41 | + + + + + + + + + | | 2022-09-01 | [facility] | TRACE-I | (missing) | (missing) | | (unavailable | 16:38:07 | [facility] | | | | + + + + + + + + + | Result panel 42 | + + + + + +-------+ + + | | 2022-09-01 | [facility] | 6.5 | (missing) | (missing) | | (unavailable | 16:38:07 | [facility] | | | | + + + +-------+ + + + + | Result panel 43 | + + + + + + + + + | | 2022-09-01 | [facility] | NEGATIVE | (missing) | (missing) | | (unavailable | 16:38:07 | [facility] | | | | + + + + + + + + + | Result panel 44 | + + + + + + + + + | | 2022-09-01 | [facility] | NORMAL | (missing) | (missing) | | (unavailable | 16:38:07 | [facility] | | | | + + + + + + + + + | Result panel 45 | + + + + + + + + + | | 2022-09-01 | [facility] | NEGATIVE | (missing) | (missing) | | (unavailable | 16:38:07 | [facility] | | | | + + + + + + + + + | Result panel 46 | + + + + + +---------+ + + | | 2022-09-01 | [facility] | SMALL | (missing) | (missing) | | (unavailable | 16:38:07 | [facility] | | | | + + + +---------+ + + + + | Result panel 47 | + + + + + +-------+ + + | | 2022-09-01 | [facility] | 4-6 | (missing) | (missing) | | (unavailable | 16:38:07 | [facility] | | | | + + + +-------+ + + + + | Result panel 48 | + + + + + +--------+ + + | | 2022-09-01 | [facility] | 7-11 | (missing) | (missing) | | (unavailable | 16:38:07 | [facility] | | | | + + + +--------+ + + + + | Result panel 49 | + + + + + +-----+ + + | | 2022-09-01 | [facility] | 0 | (missing) | (missing) | | (unavailable | 16:38:07 | [facility] | | | | + + + +-----+ + + + + | Result panel 50 | + + + + + + + + + | | 2022-09-01 | [facility] | NONE SEEN | (missing) | (missing) | | (unavailable | 16:38:07 | [facility] | | | | + + + + + + + + + | Result panel 51 | + + + + + +------+ + + | | 2022-09-01 | [facility] | 1+ | (missing) | (missing) | | (unavailable | 16:38:07 | [facility] | | | | + + + +------+ + + + + | Result panel 52 | + + + + + + + + + | | 2022-09-01 | [facility] | NONE SEEN | (missing) | (missing) | | (unavailable | 16:38:07 | [facility] | | | | + + + + + + + + + | Result panel 53 | + + + + + +-------+ + + | | 2022-09-01 | [facility] | Yes | (missing) | (missing) | | (unavailable | 16:38:07 | [facility] | | | | + + + +-------+ + + + + | Result panel 54 | + + + + + + + + + | | 2022-09-01 | [facility] | CLEAN CATCH | (missing) | (missing) | | (unavailable | 16:38:07 | [facility] | | | | + + + + + + + + + | Result panel 55 | + + + + + +-------+ + + | | 2022-10-03 | [facility] | 7.5 | (missing) | (missing) | | (unavailable | 14:40:07 | [facility] | | | | + + + +-------+ + + + + | Result panel 56 | + + + + + +--------+ + + | | 2022-10-03 | [facility] | 4.53 | (missing) | (missing) | | (unavailable | 14:40:07 | [facility] | | | | + + + +--------+ + + + + | Result panel 57 | + + + + + +--------+ + + | | 2022-10-03 | [facility] | 14.0 | (missing) | (missing) | | (unavailable | 14:40:07 | [facility] | | | | + + + +--------+ + + + + | Result panel 58 | + + + + + +--------+ + + | | 2022-10-03 | [facility] | 44.1 | (missing) | (missing) | | (unavailable | 14:40:07 | [facility] | | | | + + + +--------+ + + + + | Result panel 59 | + + + + + +--------+ + + | | 2022-10-03 | [facility] | 97.4 | (missing) | (missing) | | (unavailable | 14:40:07 | [facility] | | | | + + + +--------+ + + + + | Result panel 60 | + + + + + +--------+ + + | | 2022-10-03 | [facility] | 30.8 | (missing) | (missing) | | (unavailable | 14:40:07 | [facility] | | | | + + + +--------+ + + + + | Result panel 61 | + + + + + +--------+ + + | | 2022-10-03 | [facility] | 31.6 | (missing) | (missing) | | (unavailable | 14:40:07 | [facility] | | | | + + + +--------+ + + + + | Result panel 62 | + + + + + +--------+ + + | | 2022-10-03 | [facility] | 15.3 | (missing) | (missing) | | (unavailable | 14:40:07 | [facility] | | | | + + + +--------+ + + + + | Result panel 63 | + + + + + +-------+ + + | | 2022-10-03 | [facility] | 166 | (missing) | (missing) | | (unavailable | 14:40:07 | [facility] | | | | + + + +-------+ + + + + | Result panel 64 | + + + + + +--------+ + + | | 2022-10-03 | [facility] | 77.7 | (missing) | (missing) | | (unavailable | 14:40:07 | [facility] | | | | + + + +--------+ + + + + | Result panel 65 | + + + + + +--------+ + + | | 2022-10-03 | [facility] | 11.0 | (missing) | (missing) | | (unavailable | 14:40:07 | [facility] | | | | + + + +--------+ + + + + | Result panel 66 | + + + + + +-------+ + + | | 2022-10-03 | [facility] | 9.1 | (missing) | (missing) | | (unavailable | 14:40:07 | [facility] | | | | + + + +-------+ + + + + | Result panel 67 | + + + + + +-------+ + + | | 2022-10-03 | [facility] | 1.5 | (missing) | (missing) | | (unavailable | 14:40:07 | [facility] | | | | + + + +-------+ + + + + | Result panel 68 | + + + + + +-------+ + + | | 2022-10-03 | [facility] | 0.7 | (missing) | (missing) | | (unavailable | 14:40:07 | [facility] | | | | + + + +-------+ + + + + | Result panel 69 | + + + + + +-------+---------+ + | | 2022-10-03 | [facility] | 130 | mg/dL | (missing) | | (unavailable | 14:40:07 | [facility] | | | | + + + +-------+---------+ + + + | Result panel 70 | + + + + + +-----+---------+ + | | 2022-10-03 | [facility] | 9 | mg/dL | (missing) | | (unavailable | 14:40:07 | [facility] | | | | + + + +-----+---------+ + + + | Result panel 71 | + + + + + +--------+---------+ + | | 2022-10-03 | [facility] | 0.84 | mg/dL | (missing) | | (unavailable | 14:40:07 | [facility] | | | | + + + +--------+---------+ + + + | Result panel 72 | + + + + + +------+ + + | | 2022-10-03 | [facility] | 78 | (missing) | (missing) | | (unavailable | 14:40:07 | [facility] | | | | + + + +------+ + + + + | Result panel 73 | + + + + + +---------+ + + | | 2022-10-03 | [facility] | 10.71 | (missing) | (missing) | | (unavailable | 14:40:07 | [facility] | | | | + + + +---------+ + + + + | Result panel 74 | + + + + + +-------+ + + | | 2022-10-03 | [facility] | 142 | (missing) | (missing) | | (unavailable | 14:40:07 | [facility] | | | | + + + +-------+ + + + + | Result panel 75 | + + + + + +-------+ + + | | 2022-10-03 | [facility] | 4.0 | (missing) | (missing) | | (unavailable | 14:40:07 | [facility] | | | | + + + +-------+ + + + + | Result panel 76 | + + + + + +-------+ + + | | 2022-10-03 | [facility] | 103 | (missing) | (missing) | | (unavailable | 14:40:07 | [facility] | | | | + + + +-------+ + + + + | Result panel 77 | + + + + + +------+ + + | | 2022-10-03 | [facility] | 30 | (missing) | (missing) | | (unavailable | 14:40:07 | [facility] | | | | + + + +------+ + + + + | Result panel 78 | + + + + + +--------+ + + | | 2022-10-03 | [facility] | 13.0 | (missing) | (missing) | | (unavailable | 14:40:07 | [facility] | | | | + + + +--------+ + + + + | Result panel 79 | + + + + + +-------+---------+ + | | 2022-10-03 | [facility] | 8.7 | mg/dL | (missing) | | (unavailable | 14:40:07 | [facility] | | | | + + + +-------+---------+ + + + | Result panel 80 | + + + + + +-------+ + + | | 2022-10-03 | [facility] | 6.1 | (missing) | (missing) | | (unavailable | 14:40:07 | [facility] | | | | + + + +-------+ + + + + | Result panel 81 | + + + + + +-------+ + + | | 2022-10-03 | [facility] | 2.9 | (missing) | (missing) | | (unavailable | 14:40:07 | [facility] | | | | + + + +-------+ + + + + | Result panel 82 | + + + + + +-------+ + + | | 2022-10-03 | [facility] | 3.2 | (missing) | (missing) | | (unavailable | 14:40:07 | [facility] | | | | + + + +-------+ + + + + | Result panel 83 | + + + + + +--------+ + + | | 2022-10-03 | [facility] | 0.91 | (missing) | (missing) | | (unavailable | 14:40:07 | [facility] | | | | + + + +--------+ + + + + | Result panel 84 | + + + + + +-------+ + + | | 2022-10-03 | [facility] | 0.3 | (missing) | (missing) | | (unavailable | 14:40:07 | [facility] | | | | + + + +-------+ + + + + | Result panel 85 | + + + + + +------+ + + | | 2022-10-03 | [facility] | 18 | (missing) | (missing) | | (unavailable | 14:40:07 | [facility] | | | | + + + +------+ + + + + | Result panel 86 | + + + + + +------+ + + | | 2022-10-03 | [facility] | 14 | (missing) | (missing) | | (unavailable | 14:40:07 | [facility] | | | | + + + +------+ + + + + | Result panel 87 | + + + + + +------+ + + | | 2022-10-03 | [facility] | 65 | (missing) | (missing) | | (unavailable | 14:40:07 | [facility] | | | | + + + +------+ + + + + | Result panel 88 | + + + + + +------+ + + | | 2022-10-03 | [facility] | 43 | (missing) | (missing) | | (unavailable | 14:40:07 | [facility] | | | | + + + +------+ + + + + | Result panel 89 | + + + + + +--------+ + + | | 2022-10-22 | [facility] | 51.4 | (missing) | (missing) | | Carcinoembry | 15:20 | [facility] | | | | | onic Ag | | [facility] | | | | | [Mass/volume | | | | | | | ] in Serum | | | | | | | or Plasma | | | | | | + + + +--------+ + + + + | Result panel 90 | + + + + + +--------+ + + | Cancer Ag | 2022-10-22 | [facility] | 3457 | (missing) | (missing) | | 19-9 | 15:20 | [facility] | | | | | [Units/volum | | Hospital | | | | | e] in Serum | | | | | | | or Plasma by | | | | | | | Immunoassay | | | | | | | | | | | | | + + + +--------+ + + + + | Result panel 91 | + + + + + +--------+ + + | | 2022-10-22 | [facility] | 51.4 | (missing) | (missing) | | (unavailable | 15:20:07 | [facility] | | [facility] | | | | + + + +--------+ + + + + | Result panel 92 | + + + + + +--------+ + + | | 2022-10-22 | [facility] | 3457 | (missing) | (missing) | | (unavailable | 15:20:07 | [facility] ) | | [facility] | | | | + + + +--------+ + + + + | Result panel 93 | + + + + + +------+ + + | Serum or | 2022-11-20 | [facility] | 42 | (missing) | (missing) | | plasma | 15:10 | [facility] | | | | | lipase | | [facility] | | | | | measurement | | | | | | | (enzymatic | | | | | | | activity/vol | | | | | | | ume) | | | | | | + + + +------+ + + + + | Result panel 94 | + + + + + + + + + | Color of | 2022-11-20 | [facility] | YELLOW | (missing) | (missing) | | Urine by | 17:00 | [facility] | | | | | Auto | | [facility] | | | | + + + + + + + + + | Result panel 95 | + + + + + +---------+ + + | Character | 2022-11-20 | [facility] | CLEAR | (missing) | (missing) | | of Urine | 17:00 | [facility] | | | | | | | [facility] | | | | + + + +---------+ + + + + | Result panel 96 | + + + + + + + + + | Glucose | 2022-11-20 | [facility] | NEGATIVE | (missing) | (missing) | | [Presence] | 17:00 | [facility] | | | | | in Urine by | | Hospital | | | | | Test strip | | | | | | + + + + + + + + + | Result panel 97 | + + + + + + + + + | Urine total | 2022-11-20 | [facility] | NEGATIVE | (missing) | (missing) | | bilirubin | 17:00 | [facility] | | | | | detection by | | Hospital | | | | | test strip | | | | | | + + + + + + + + + | Result panel 98 | + + + + + + + + + | Urine | 2022-11-20 | [facility] | NEGATIVE | (missing) | (missing) | | ketones | 17:00 | [facility] | | | | | detection by | | Hospital | | | | | test strip | | | | | | + + + + + + + + + | Result panel 99 | + + + + + +---------+ + + | Specific | 2022-11-20 | [facility] | 1.010 | (missing) | (missing) | | gravity ur | 17:00 | [facility] | | | | | dipstick | | [facility] | | | | + + + +---------+ + + + + | Result panel 100 | + + + + + + + + + | Urine | 2022-11-20 | [facility] | NEGATIVE | (missing) | (missing) | | hemoglobin | 17:00 | [facility] | | | | | detection by | | Hospital | | | | | test strip | | | | | | + + + + + + + + + | Result panel 101 | + + + + + +-------+ + + | Urine pH | 2022-11-20 | [facility] | 5.5 | (missing) | (missing) | | measurement | 17:00 | [facility] | | | | | by test | | Hospital | | | | | strip | | | | | | + + + +-------+ + + + + | Result panel 102 | + + + + + + + + + | Protein | 2022-11-20 | [facility] | NEGATIVE | (missing) | (missing) | | urine test | 17:00 | [facility] | | | | | strip | | Hospital | | | | + + + + + + + + + | Result panel 103 | + + + + + + + + + | | 2022-11-20 | [facility] | NORMAL | (missing) | (missing) | | Urobilinogen | 17:00 | [facility] | | | | | | | [facility] | | | | | [Mass/volume | | | | | | | ] in Urine | | | | | | | by Test | | | | | | | strip | | | | | | + + + + + + + + + | Result panel 104 | + + + + + + + + + | Urine | 2022-11-20 | [facility] | NEGATIVE | (missing) | (missing) | | nitrite | 17:00 | [facility] | | | | | detection by | | Hospital | | | | | test strip | | | | | | + + + + + + + + + | Result panel 105 | + + + + + + + + + | Urine | 2022-11-20 | [facility] | NEGATIVE | (missing) | (missing) | | leukocyte | 17:00 | [facility] | | | | | esterase | | Hospital | | | | | detection by | | | | | | | dipstick | | | | | | + + + + + + + + + | Result panel 106 | + + + + + +-------+ + + | Serum or | 2022-11-21 | [facility] | 5.5 | (missing) | (missing) | | plasma | 09:12 | [facility] | | | | | protein | | Hospital | | | | | measurement | | | | | | | (mass/volume | | | | | | | ) | | | | | | + + + +-------+ + + + + | Result panel 107 | + + + + + +-------+ + + | Serum or | 2022-11-21 | [facility] | 2.4 | (missing) | (missing) | | plasma | 09:12 | [facility] | | | | | albumin | | Hospital | | | | | measurement | | | | | | | (mass/volume | | | | | | | ) | | | | | | + + + +-------+ + + + + | Result panel 108 | + + + + + +-------+ + + | Serum | 2022-11-21 | [facility] | 3.1 | (missing) | (missing) | | globulin | 09:12 | [facility] | | | | | measurement | | Hospital | | | | | (mass/volume | | | | | | | ) | | | | | | + + + +-------+ + + + + | Result panel 109 | + + + + + +--------+ + + | Serum or | 2022-11-21 | [facility] | 0.77 | (missing) | (missing) | | plasma | 09:12 | [facility] | | | | | albumin/glob | | Hospital | | | | | ulin mass | | | | | | | ratio | | | | | | + + + +--------+ + + + + | Result panel 110 | + + + + + +-------+ + + | Serum or | 2022-11-21 | [facility] | 0.6 | (missing) | (missing) | | plasma total | 09:12 | [facility] | | | | | bilirubin | | Hospital | | | | | measurement | | | | | | | (mass/volume | | | | | | | ) | | | | | | + + + +-------+ + + + + | Result panel 111 | + + + + + +------+ + + | Serum or | 2022-11-21 | [facility] | 18 | (missing) | (missing) | | plasma | 09:12 | [facility] | | | | | aspartate | | Hospital | | | | | aminotransfe | | | | | | | rase | | | | | | | measurement | | | | | | | (enzymatic | | | | | | | activity/vol | | | | | | | ume) | | | | | | + + + +------+ + + + + | Result panel 112 | + + + + + +------+ + + | Serum or | 2022-11-21 | [facility] | 15 | (missing) | (missing) | | plasma | 09:12 | [facility] | | | | | alanine | | Hospital | | | | | aminotransfe | | | | | | | rase | | | | | | | measurement | | | | | | | (enzymatic | | | | | | | activity/vol | | | | | | | ume) | | | | | | + + + +------+ + + + + | Result panel 113 | + + + + + +------+ + + | Serum or | 2022-11-21 | [facility] | 64 | (missing) | (missing) | | plasma | 09:12 | [facility] | | | | | alkaline | | Hospital | | | | | phosphatase | | | | | | | measurement | | | | | | | (enzymatic | | | | | | | activity/vol | | | | | | | ume) | | | | | | + + + +------+ + + + + | Result panel 114 | + + + + + +-------+ + + | Serum or | 2022-11-23 | [facility] | 8.5 | (missing) | (missing) | | plasma anion | 05:15 | [facility] | | | | | gap 4 | | Hospital | | | | + + + +-------+ + + + + | Result panel 115 | + + + + + +-------+ + + | Serum or | 2022-11-23 | [facility] | 8.0 | (missing) | (missing) | | plasma | 05:15 | [facility] | | | | | calcium | | Hospital | | | | | measurement | | | | | | | (mass/volume | | | | | | | ) | | | | | | + + + +-------+ + + + + | Result panel 116 | + + + + + +-------+ + + | Serum or | 2022-11-23 | [facility] | 2.0 | (missing) | (missing) | | plasma | 05:15 | [facility] | | | | | phosphate | | [facility] | | | | | measurement | | | | | | | (mass/volume | | | | | | | ) | | | | | | + + + +-------+ + + + + | Result panel 117 | + + + + + +-------+ + + | Serum or | 2022-11-23 | [facility] | 2.0 | (missing) | (missing) | | plasma | 05:15 | [facility] | | | | | magnesium | | [facility] | | | | | measurement | | | | | | | (mass/volume | | | | | | | ) | | | | | | + + + +-------+ + + + + | Result panel 118 | + + + + + +-------+ + + | Blood | 2022-11-23 | [facility] | 8.6 | (missing) | (missing) | | leukocytes | 05:15 | [facility] | | | | | automated | | [facility] | | | | | count | | | | | | | (number/volu | | | | | | | me) | | | | | | + + + +-------+ + + + + | Result panel 119 | + + + + + +--------+ + + | Blood | 2022-11-23 | [facility] | 3.22 | (missing) | (missing) | | erythrocytes | 05:15 | [facility] | | | | | automated | | [facility] | | | | | count | | | | | | | (number/volu | | | | | | | me) | | | | | | + + + +--------+ + + + + | Result panel 120 | + + + + + +--------+ + + | Blood | 2022-11-23 | [facility] | 10.3 | (missing) | (missing) | | hemoglobin | 05:15 | [facility] | | | | | measurement | | [facility] | | | | | (mass/volume | | | | | | | ) | | | | | | + + + +--------+ + + + + | Result panel 121 | + + + + + +--------+ + + | Automated | 2022-11-23 | [facility] | 31.3 | (missing) | (missing) | | blood | 05:15 | [facility] | | | | | hematocrit | | [facility] | | | | + + + +--------+ + + + + | Result panel 122 | + + + + + +--------+ + + | Automated | 2022-11-23 | [facility] | 97.3 | (missing) | (missing) | | erythrocyte | 05:15 | [facility] | | | | | mean | | [facility] | | | | | corpuscular | | | | | | | volume | | | | | | + + + +--------+ + + + + | Result panel 123 | + + + + + +--------+ + + | Automated | 2022-11-23 | [facility] | 31.9 | (missing) | (missing) | | erythrocyte | 05:15 | [facility] | | | | | mean | | [facility] | | | | | corpuscular | | | | | | | hemoglobin | | | | | | | (mass per | | | | | | | erythrocyte) | | | | | | | | | | | | | + + + +--------+ + + + + | Result panel 124 | + + + + + +--------+ + + | Automated | 2022-11-23 | [facility] | 32.8 | (missing) | (missing) | | erythrocyte | 05:15 | [facility] | | | | | mean | | Hospital | | | | | corpuscular | | | | | | | hemoglobin | | | | | | | concentratio | | | | | | | n | | | | | | | measurement | | | | | | | (mass/volume | | | | | | | ) | | | | | | + + + +--------+ + + + + | Result panel 125 | + + + + + +--------+ + + | Automated | 2022-11-23 | [facility] | 16.5 | (missing) | (missing) | | erythrocyte | 05:15 | [facility] | | | | | distribution | | Hospital | | | | | width | | | | | | + + + +--------+ + + + + | Result panel 126 | + + + + + +-------+ + + | Automated | 2022-11-23 | [facility] | 184 | (missing) | (missing) | | blood | 05:15 | [facility] | | | | | platelet | | [facility] | | | | | count | | | | | | | (count/volum | | | | | | | e) | | | | | | + + + +-------+ + + + + | Result panel 127 | + + + + + +--------+ + + | Automated | 2022-11-23 | [facility] | 80.3 | (missing) | (missing) | | blood | 05:15 | [facility] | | | | | neutrophil | | Hospital | | | | | count as | | | | | | | percentage | | | | | | | of total | | | | | | | leukocytes | | | | | | + + + +--------+ + + + + | Result panel 128 | + + + + + +-------+ + + | Automated | 2022-11-23 | [facility] | 9.5 | (missing) | (missing) | | blood | 05:15 | [facility] | | | | | lymphocyte | | Hospital | | | | | count as | | | | | | | percentage | | | | | | | ot total | | | | | | | leukocytes | | | | | | + + + +-------+ + + + + | Result panel 129 | + + + + + +-------+ + + | Automated | 2022-11-23 | [facility] | 9.0 | (missing) | (missing) | | blood | 05:15 | [facility] | | | | | monocyte | | Hospital | | | | | count as | | | | | | | percentage | | | | | | | of total | | | | | | | leukocytes | | | | | | + + + +-------+ + + + + | Result panel 130 | + + + + + +-------+ + + | Automated | 2022-11-23 | [facility] | 0.8 | (missing) | (missing) | | blood | 05:15 | [facility] | | | | | eosinophil | | Hospital | | | | | count as | | | | | | | percentage | | | | | | | of total | | | | | | | leukocytes | | | | | | + + + +-------+ + + + + | Result panel 131 | + + + + + +-------+ + + | Automated | 2022-11-23 | [facility] | 0.4 | (missing) | (missing) | | blood | 05:15 | [facility] | | | | | basophil | | Hospital | | | | | count as | | | | | | | percentage | | | | | | | of total | | | | | | | leukocytes | | | | | | + + + +-------+ + + + + | Result panel 132 | + + + + + +-------+ + + | Serum or | 2022-11-23 | [facility] | 104 | (missing) | (missing) | | plasma | 05:15 | [facility] | | | | | glucose | | [facility] | | | | | measurement | | | | | | | (mass/volume | | | | | | | ) | | | | | | + + + +-------+ + + + + | Result panel 133 | + + + + + +-----+ + + | Serum or | 2022-11-23 | [facility] | 8 | (missing) | (missing) | | plasma urea | 05:15 | [facility] | | | | | nitrogen | | Hospital | | | | | measurement | | | | | | | (mass/volume | | | | | | | ) | | | | | | + + + +-----+ + + + + | Result panel 134 | + + + + + +--------+ + + | Serum or | 2022-11-23 | [facility] | 0.63 | (missing) | (missing) | | plasma | 05:15 | [facility] | | | | | creatinine | | [facility] | | | | | measurement | | | | | | | (mass/volume | | | | | | | ) | | | | | | + + + +--------+ + + + + | Result panel 135 | + + + + + +-------+ + + | Glomerular | 2022-11-23 | [facility] | 100 | (missing) | (missing) | | filtration | 05:15 | [facility] | | | | | rate/1.73 sq | | Hospital | | | | | M.predicted | | | | | | | [Volume | | | | | | | Rate/Area] | | | | | | | inSerum, | | | | | | | Plasma or | | | | | | | Blood by | | | | | | | Creatinine-b | | | | | | | ased formula | | | | | | | (CKD-EPI | | | | | | | 2020) | | | | | | + + + +-------+ + + + + | Result panel 136 | + + + + + +---------+ + + | Serum or | 2022-11-23 | [facility] | 12.69 | (missing) | (missing) | | plasma urea | 05:15 | [facility] | | | | | nitrogen/cre | | Hospital | | | | | atinine mass | | | | | | | ratio | | | | | | + + + +---------+ + + + + | Result panel 137 | + + + + + +-------+ + + | Serum or | 2022-11-23 | [facility] | 141 | (missing) | (missing) | | plasma | 05:15 | [facility] | | | | | sodium | | Hospital | | | | | measurement | | | | | | | (moles/volum | | | | | | | e) | | | | | | + + + +-------+ + + + + | Result panel 138 | + + + + + +-------+ + + | Serum or | 2022-11-23 | [facility] | 3.5 | (missing) | (missing) | | plasma | 05:15 | [facility] | | | | | potassium | | [facility] | | | | | measurement | | | | | | | (moles/volum | | | | | | | e) | | | | | | + + + +-------+ + + + + | Result panel 139 | + + + + + +-------+ + + | Serum or | 2022-11-23 | [facility] | 104 | (missing) | (missing) | | plasma | 05:15 | [facility] | | | | | chloride | | [facility] | | | | | measurement | | | | | | | (moles/volum | | | | | | | e) | | | | | | + + + +-------+ + + + + | Result panel 140 | + + + + + +------+ + + | Serum or | 2022-11-23 | [facility] | 32 | (missing) | (missing) | | plasma | 05:15 | [facility] | | | | | carbon | | Hospital | | | | | dioxide, | | | | | | | total | | | | | | | measurement | | | | | | | (moles/volum | | | | | | | e) | | | | | | + + + +------+ + + + + | Result panel 141 | + + + + + +-------+ + + | | 2023-01-18 | [facility] | 7.4 | (missing) | (missing) | | (unavailable | 05:00:07 | [facility] ) | | [facility] | | | | + + + +-------+ + + + + | Result panel 142 | + + + + + +--------+ + + | | 2023-01-18 | [facility] | 83.8 | (missing) | (missing) | | (unavailable | 05:00:07 | [facility] ) | | [facility] | | | | + + + +--------+ + + + + | Result panel 143 | + + + + + +-------+ + + | | 2023-01-18 | [facility] | 6.9 | (missing) | (missing) | | (unavailable | 05:00:07 | [facility] ) | | [facility] | | | | + + + +-------+ + + + + | Result panel 144 | + + + + + +-------+ + + | | 2023-01-18 | [facility] | 7.0 | (missing) | (missing) | | (unavailable | 05:00:07 | [facility] ) | | [facility] | | | | + + + +-------+ + + + + | Result panel 145 | + + + + + +-------+ + + | | 2023-01-18 | [facility] | 1.7 | (missing) | (missing) | | (unavailable | 05:00:07 | [facility] ) | | [facility] | | | | + + + +-------+ + + + + | Result panel 146 | + + + + + +-------+ + + | | 2023-01-18 | [facility] | 0.6 | (missing) | (missing) | | (unavailable | 05:00:07 | [facility] | | [facility] | | | | + + + +-------+ + + + + | Result panel 147 | + + + + + +--------+ + + | | 2023-01-18 | [facility] | 3.60 | (missing) | (missing) | | (unavailable | 05:00:07 | [facility] | [facility] | | | | + + + +--------+ + + + + | Result panel 148 | + + + + + +--------+ + + | | 2023-01-18 | [facility] | 12.0 | (missing) | (missing) | | (unavailable | 05:00:07 | [facility] | | | | + + + +--------+ + + + + | Result panel 149 | + + + + + +-------+---------+ + | | 2023-01-18 | [facility] | 125 | mg/dL | (missing) | | (unavailable | 05:00:07 | [facility] | | | | + + + +-------+---------+ + + + | Result panel 150 | + + + + + +------+---------+ + | | 2023-01-18 | [facility] | 12 | mg/dL | (missing) | | (unavailable | 05:00:07 | [facility] | | | | + + + +------+---------+ + + + | Result panel 151 | + + + + + +--------+---------+ + | | 2023-01-18 | [facility] | 0.54 | mg/dL | (missing) | | (unavailable | 05:00:07 | [facility] | | | | + + + +--------+---------+ + + + | Result panel 152 | + + + + + +-------+ + + | | 2023-01-18 | [facility] | 103 | (missing) | (missing) | | (unavailable | 05:00:07 | [facility] | | | | + + + +-------+ + + + + | Result panel 153 | + + + + + +---------+ + + | | 2023-01-18 | [facility] | 22.22 | (missing) | (missing) | | (unavailable | 05:00:07 | [facility] | | | | + + + +---------+ + + + + | Result panel 154 | + + + + + +--------+ + + | | 2023-01-18 | [facility] | 37.5 | (missing) | (missing) | | (unavailable | 05:00:07 | [facility] | | | | + + + +--------+ + + + + | Result panel 155 | + + + + + +-------+ + + | | 2023-01-18 | [facility] | 143 | (missing) | (missing) | | (unavailable | 05:00:07 | [facility] | | | | + + + +-------+ + + + + | Result panel 156 | + + + + + +-------+ + + | | 2023-01-18 | [facility] | 4.3 | (missing) | (missing) | | (unavailable | 05:00:07 | [facility] | | | | + + + +-------+ + + + + | Result panel 157 | + + + + + +-------+ + + | | 2023-01-18 | [facility] | 105 | (missing) | (missing) | | (unavailable | 05:00:07 | [facility] | | | | + + + +-------+ + + + + | Result panel 158 | + + + + + +------+ + + | | 2023-01-18 | [facility] | 33 | (missing) | (missing) | | (unavailable | 05:00:07 | [facility] | | | | + + + +------+ + + + + | Result panel 159 | + + + + + +-------+ + + | | 2023-01-18 | [facility] | 9.3 | (missing) | (missing) | | (unavailable | 05:00:07 | [facility] | | | | + + + +-------+ + + + + | Result panel 160 | + + + + + +-------+---------+ + | | 2023-01-18 | [facility] | 8.1 | mg/dL | (missing) | | (unavailable | 05:00:07 | [facility] | | | | + + + +-------+---------+ + + + | Result panel 161 | + + + + + +-------+ + + | | 2023-01-18 | [facility] | 4.9 | (missing) | (missing) | | (unavailable | 05:00:07 | [facility] | | | | + + + +-------+ + + + + | Result panel 162 | + + + + + +-------+ + + | | 2023-01-18 | [facility] | 2.0 | (missing) | (missing) | | (unavailable | 05:00:07 | [facility] | | | | + + + +-------+ + + + + | Result panel 163 | + + + + + +-------+ + + | | 2023-01-18 | [facility] | 2.9 | (missing) | (missing) | | (unavailable | 05:00:07 | [facility] | | | | + + + +-------+ + + + + | Result panel 164 | + + + + + +--------+ + + | | 2023-01-18 | [facility] | 0.69 | (missing) | (missing) | | (unavailable | 05:00:07 | [facility] | | | | + + + +--------+ + + + + | Result panel 165 | + + + + + +---------+ + + | | 2023-01-18 | [facility] | 104.2 | (missing) | (missing) | | (unavailable | 05:00:07 | [facility] | | | | + + + +---------+ + + + + | Result panel 166 | + + + + + +-------+ + + | | 2023-01-18 | [facility] | 0.4 | (missing) | (missing) | | (unavailable | 05:00:07 | [facility] | | | | + + + +-------+ + + + + | Result panel 167 | + + + + + +------+ + + | | 2023-01-18 | [facility] | 20 | (missing) | (missing) | | (unavailable | 05:00:07 | [facility] | | | | + + + +------+ + + + + | Result panel 168 | + + + + + +------+ + + | | 2023-01-18 | [facility] | 15 | (missing) | (missing) | | (unavailable | 05:00:07 | [facility] | | | | + + + +------+ + + + + | Result panel 169 | + + + + + +-------+ + + | | 2023-01-18 | [facility] | 113 | (missing) | (missing) | | (unavailable | 05:00:07 | [facility] | | | | + + + +-------+ + + + + | Result panel 170 | + + + + + +------+ + + | | 2023-01-18 | [facility] | 18 | (missing) | (missing) | | (unavailable | 05:00:07 | [facility] | | | | + + + +------+ + + + + | Result panel 171 | + + + + + +------+ + + | | 2023-01-18 | [facility] | 32 | (missing) | (missing) | | (unavailable | 05:00:07 | [facility] | | | | + + + +------+ + + + + | Result panel 172 | + + + + + +--------+ + + | | 2023-01-18 | [facility] | 33.5 | (missing) | (missing) | | (unavailable | 05:00:07 | [facility] | | | | + + + +--------+ + + + + | Result panel 173 | + + + + + +--------+ + + | | 2023-01-18 | [facility] | 32.1 | (missing) | (missing) | | (unavailable | 05:00:07 | [facility] | | | | + + + +--------+ + + + + | Result panel 174 | + + + + + +--------+ + + | | 2023-01-18 | [facility] | 18.0 | (missing) | (missing) | | (unavailable | 05:00:07 | [facility] | | | | + + + +--------+ + + + + | Result panel 175 | + + + + + +-------+ + + | | 2023-01-18 | [facility] | 260 | (missing) | (missing) | | (unavailable | 05:00:07 | [facility] | | | | + + + +-------+ + + + + | Result panel 176 | + + + + + + + + + | | 2023-01-18 | [facility] | YELLOW | (missing) | (missing) | | (unavailable | 07:30:07 | [facility] | | | | + + + + + + + + + | Result panel 177 | + + + + + + + + + | | 2023-01-18 | [facility] | SL CLOUDY | (missing) | (missing) | | (unavailable | 07:30:07 | [facility] | | | | + + + + + + + + + | Result panel 178 | + + + + + + + + + | | 2023-01-18 | [facility] | NEGATIVE | (missing) | (missing) | | (unavailable | 07:30:07 | [facility] | | | | + + + + + + + + + | Result panel 179 | + + + + + + + + + | | 2023-01-18 | [facility] | NEGATIVE | (missing) | (missing) | | (unavailable | 07:30:07 | [facility] | | | | + + + + + + + + + | Result panel 180 | + + + + + + + + + | | 2023-01-18 | [facility] | NEGATIVE | (missing) | (missing) | | (unavailable | 07:30:07 | [facility] | | | | + + + + + + + + + | Result panel 181 | + + + + + +---------+ + + | | 2023-01-18 | [facility] | 1.010 | (missing) | (missing) | | (unavailable | 07:30:07 | [facility] | | | | + + + +---------+ + + + + | Result panel 182 | + + + + + + + + + | | 2023-01-18 | [facility] | NEGATIVE | (missing) | (missing) | | (unavailable | 07:30:07 | [facility] | | | | + + + + + + + + + | Result panel 183 | + + + + + +-------+ + + | | 2023-01-18 | [facility] | 7.5 | (missing) | (missing) | | (unavailable | 07:30:07 | [facility] | | | | + + + +-------+ + + + + | Result panel 184 | + + + + + + + + + | | 2023-01-18 | [facility] | NEGATIVE | (missing) | (missing) | | (unavailable | 07:30:07 | [facility] | | | | + + + + + + + + + | Result panel 185 | + + + + + + + + + | | 2023-01-18 | [facility] | NORMAL | (missing) | (missing) | | (unavailable | 07:30:07 | [facility] | | | | + + + + + + + + + | Result panel 186 | + + + + + + + + + | | 2023-01-18 | [facility] | NEGATIVE | (missing) | (missing) | | (unavailable | 07:30:07 | [facility] | | | | + + + + + + + + + | Result panel 187 | + + + + + +---------+ + + | | 2023-01-18 | [facility] | TRACE | (missing) | (missing) | | (unavailable | 07:30:07 | [facility] | | | | + + + +---------+ + + + + | Result panel 188 | + + + + + +-------+ + + | | 2023-01-18 | [facility] | 0-1 | (missing) | (missing) | | (unavailable | 07:30:07 | [facility] | | | | + + + +-------+ + + + + | Result panel 189 | + + + + + +-------+ + + | | 2023-01-18 | [facility] | 4-6 | (missing) | (missing) | | (unavailable | 07:30:07 | [facility] | | | | + + + +-------+ + + + + | Result panel 190 | + + + + + + + + + | | 2023-01-18 | [facility] | SQUAMOUS 1+ | (missing) | (missing) | | (unavailable | 07:30:07 | [facility] | | | | + + + + + + + + + | Result panel 191 | + + + + + + + + + | | 2023-01-18 | [facility] | NONE SEEN | (missing) | (missing) | | (unavailable | 07:30:07 | [facility] | | | | + + + + + + + + + | Result panel 192 | + + + + + + + + + | | 2023-01-18 | [facility] | NONE SEEN | (missing) | (missing) | | (unavailable | 07:30:07 | [facility] | | | | + + + + + + + + + | Result panel 193 | + + + + + + + + + | | 2023-01-18 | [facility] | NONE SEEN | (missing) | (missing) | | (unavailable | 07:30:07 | [facility] | | | | + + + + + + + + + | Result panel 194 | + + + + + +------+ + + | | 2023-01-18 | [facility] | No | (missing) | (missing) | | (unavailable | 07:30:07 | [facility] | | | | + + + +------+ + + + + | Result panel 195 | + + + + + + + + + | | 2023-01-18 | [facility] | CLEAN CATCH | (missing) | (missing) | | (unavailable | 07:30:07 | [facility] | | | | + + + + + + + Social History + + + + | date | description | facility | + + + + | 2022-11-15 00:00 | Never smoker | [facility] | + + + + | 2022-11-28 00:00 | Never smoker | [facility] | + + + + Vital Signs [...] | | + + + +---------+ | 2023-01-18 00:00 | BMI | 34.4 | kg/m2 | + + + +---------+ | 2023-01-18 00:00 | BP_diastolic | 63 | mmHg | + + + +---------+ | 2023-01-18 00:00 | BP_systolic | 105 | mmHg | + + + +---------+ | 2023-01-18 00:00 | heart_rate | 90 | /min | + + + +---------+ | 2023-01-18 00:00 | height_metric | 170.18 | cm | + + + +---------+ | 2023-01-18 00:00 | height_standard | 67 | in | + + + +---------+ | 2023-01-18 00:00 | o2_saturation | 95 | % | + + + +---------+ | 2023-01-18 00:00 | respiration_rate | 15 | /min | + + + +---------+ | 2023-01-18 00:00 | temperature_metric | 36.83 | C | | | | | | + + + +---------+ | 2023-01-18 00:00 | | 98.3 | F | | | temperature_standar | | | | | d | | | + + + +---------+ | 2023-01-18 00:00 | weight_metric | 99.5 | kg | + + + +---------+ | 2023-01-18 00:00 | weight_standard | 219.36 | lb | + + + +---------+"
--- OUTSIDE RECORDS SUMMARY | ~2023-01-19 | XMS | Continuity of Care Document ---
Demographics + + + | Address | [address] | | | [place] [address] | + + + | Preferred Language | Unknown | + + + | Marital Status | | + + + | Caodaism Affiliation | Unknown | + + + | Race | White | + + + | Ethnic Group | Not or | + + + Author + + + | Author | [facility] | + + + | Organization | [facility] | + + + | Address | [address] [facility] [facility] [address] [facility] | | | [place] [address] | + + + | Phone | | + + + Care Team Providers + + + + | Care Uptwister Tender Name | Role | Phone | + [...] 2022-11-15 00:00 | No vaccine administered | [facility] | + + + + | 2022-11-28 00:00 | No vaccine administered | [facility] | + + + + Medications + + + + | date | description | facility | + + + + | 2022-11-15 00:00 | OXYCODONE HCL | [facility] | + + + + | 2023-01-18 00:00 | OXYCODONE HCL | [facility] | + + + + | 2022-11-15 00:00 | oxycodone hydrochloride 5 | [facility] | | | MG Oral Tablet | | + + + + | 2022-11-28 00:00 | oxycodone hydrochloride 5 | [facility] | | | MG Oral Tablet | | + + + + | 2016-03-11 00:00 | OXYCODONE | [facility] | | | HCL/ACETAMINOPHEN | | + + + + | 2016-03-11 00:00 | OXYCODONE | [facility] | | | HCL/ACETAMINOPHEN | | + + + + | 2016-03-11 00:00 | acetaminophen 325 MG / | [facility] | | | oxycodone hydrochloride 5 | | | | MG Oral Tab | | + + + + | 2022-11-15 00:00 | 120 ACTUAT albuterol 0.1 | [facility] | | | MG/ACTUAT / ipratropium | | | | bromide 0.0 | | + + + + | 2022-11-28 00:00 | 120 ACTUAT albuterol 0.1 | [facility] | | | MG/ACTUAT / ipratropium | | | | bromide 0.0 | | + + + + | 2022-09-01 00:00 | IPRATROPIUM/ALBUTEROL | [facility] | | | SULFATE | | + + + + | 2022-10-03 00:00 | IPRATROPIUM/ALBUTEROL | [facility] | | | SULFATE | | + + + + | 2022-11-15 00:00 | IPRATROPIUM/ALBUTEROL | [facility] | | | SULFATE | | + + + + | 2023-01-18 00:00 | IPRATROPIUM/ALBUTEROL | [facility] | | | SULFATE | | + + + + | 2023-01-18 00:00 | IPRATROPIUM/ALBUTEROL | [facility] | | | SULFATE | | + + + + | 2022-11-28 00:00 | albuterol 0.833 MG/ML / | [facility] | | | ipratropium bromide 0.167 | | | | MG/ML Inha | | + + + + | 2023-01-18 00:00 | FENTANYL | [facility] | + + + + | 2022-09-01 00:00 | predniSONE | [facility] | + + + + | 2022-10-03 00:00 | predniSONE | [facility] | + + + + | 2022-11-15 00:00 | predniSONE | [facility] | + + + + | 2023-01-18 00:00 | predniSONE | [facility] | + + + + | 2022-11-15 00:00 | prednisone 10 MG Oral | [facility] | | | Tablet | | + + + + | 2022-11-28 00:00 | prednisone 10 MG Oral | [facility] | | | Tablet | | + + + + | 2022-11-27 00:00 | ACETAMINOPHEN | [facility] | + + + + | 2022-11-27 00:00 | acetaminophen 500 MG Oral | [facility] | | | Tablet | | + + + + | 2022-09-01 00:00 | CEFDINIR | [facility] | + + + + | 2022-09-01 00:00 | CEFDINIR | [facility] | + + + + | 2022-09-01 00:00 | cefdinir 300 MG Oral | [facility] | | | Capsule | | + + + + | 2022-09-01 00:00 | LORATADINE | [facility] | + + + + | 2022-10-03 00:00 | LORATADINE | [facility] | + + + + | 2022-11-15 00:00 | LORATADINE | [facility] | + + + + | 2023-01-18 00:00 | LORATADINE | [facility] | + + + + | 2022-11-15 00:00 | loratadine 10 MG Oral | [facility] | | | Tablet [Claritin] | | + + + + | 2022-11-28 00:00 | loratadine 10 MG Oral | [facility] | | | Tablet [Claritin] | | + + + + | 2014-11-05 00:00 | LEVOFLOXACIN | [facility] | + + + + | 2014-11-05 00:00 | LEVOFLOXACIN | [facility] | + + + + | 2014-11-05 00:00 | levofloxacin 500 MG Oral | [facility] | | | Tablet [Levaquin] | | + + + + | 2016-03-11 00:00 | CEPHALEXIN | [facility] | + + + + | 2016-03-11 00:00 | CEPHALEXIN | [facility] | + + + + | 2016-03-11 00:00 | cephalexin 250 MG Oral | [facility] | | | Capsule [Keflex] | | + + + + | 2022-11-27 00:00 | FAMOTIDINE | [facility] | + + + + | 2022-11-27 00:00 | famotidine 20 MG Oral | [facility] | | | Tablet | | + + + + | 2022-09-01 00:00 | GABAPENTIN | [facility] | + + + + | 2022-10-03 00:00 | GABAPENTIN | [facility] | + + + + | 2022-11-15 00:00 | GABAPENTIN | [facility] | + + + + | 2023-01-18 00:00 | GABAPENTIN | [facility] | + + + + | 2022-11-15 00:00 | gabapentin 300 MG Oral | [facility] | | | Capsule | | + + + + | 2022-11-28 00:00 | gabapentin 300 MG Oral | [facility] | | | Capsule | | + + + + | 2022-09-01 00:00 | IBUPROFEN | [facility] | + + + + | 2022-10-03 00:00 | IBUPROFEN | [facility] | + + + + | 2022-11-15 00:00 | IBUPROFEN | [facility] | + + + + | 2023-01-18 00:00 | IBUPROFEN | [facility] | + + + + | 2022-11-15 00:00 | ibuprofen 200 MG Oral | [facility] | | | Tablet | | + + + + | 2022-11-28 00:00 | ibuprofen 200 MG Oral | [facility] | | | Tablet | | + + + + | 2022-10-03 00:00 | ONDANSETRON | [facility] | + + + + | 2022-11-15 00:00 | ONDANSETRON | [facility] | + + + + | 2023-01-18 00:00 | ONDANSETRON | [facility] | + + + + | 2022-10-03 00:00 | ondansetron 8 MG | [facility] | | | Disintegrating Oral Tablet | | + + + + | 2022-11-15 00:00 | ondansetron 8 MG | [facility] | | | Disintegrating Oral Tablet | | + + + + | 2022-11-28 00:00 | ondansetron 8 MG | [facility] | | | Disintegrating Oral Tablet | | + + + + | 2022-09-01 00:00 | predniSONE | [facility] | + + + + | 2022-10-03 00:00 | predniSONE | [facility] | + + + + | 2022-11-15 00:00 | predniSONE | [facility] | + + + + | 2023-01-18 00:00 | predniSONE | [facility] | + + + + | 2022-11-15 00:00 | prednisone 20 MG Oral | [facility] | | | Tablet | | + + + + | 2022-11-28 00:00 | prednisone 20 MG Oral | [facility] | | | Tablet | | + + + + | 2022-09-01 00:00 | PREDNISONE | [facility] | + + + + | 2022-10-03 00:00 | PREDNISONE | [facility] | + + + + | 2022-11-15 00:00 | PREDNISONE | [facility] | + + + + | 2023-01-18 00:00 | PREDNISONE | [facility] | + + + + | 2022-11-15 00:00 | prednisone 5 MG Oral | [facility] | | | Tablet | | + + + + | 2022-11-28 00:00 | prednisone 5 MG Oral | [facility] | | | Tablet | | + + + + | 2022-11-15 00:00 | SENNOSIDES | [facility] | + + + + | 2023-01-18 00:00 | SENNOSIDES | [facility] | + + + + | 2022-11-15 00:00 | sennosides, JAIL 8.6 MG | [facility] | | | Oral Tablet | | + + + + | 2022-11-28 00:00 | sennosides, JAIL 8.6 MG | [facility] | | | Oral Tablet | | + + + + | 2022-09-01 00:00 | VALACYCLOVIR HCL | [facility] | + + + + | 2022-10-03 00:00 | VALACYCLOVIR HCL | [facility] | + + + + | 2022-11-15 00:00 | VALACYCLOVIR HCL | [facility] | + + + + | 2023-01-18 00:00 | VALACYCLOVIR HCL | [facility] | + + + + | 2022-11-15 00:00 | valacyclovir 1000 MG Oral | [facility] | | | Tablet | | + + + + | 2022-11-28 00:00 | valacyclovir 1000 MG Oral | [facility] | | | Tablet | | + + + + | 2022-09-01 00:00 | TRAMADOL HCL | [facility] | + + + + | 2022-09-01 00:00 | TRAMADOL HCL | [facility] | + + + + | 2022-09-01 00:00 | THEOPHYLLINE ANHYDROUS | [facility] | + + + + | 2022-10-03 00:00 | THEOPHYLLINE ANHYDROUS | [facility] | + + + + | 2022-11-15 00:00 | THEOPHYLLINE ANHYDROUS | [facility] | + + + + | 2023-01-18 00:00 | THEOPHYLLINE ANHYDROUS | [facility] | + + + + | 2022-11-15 00:00 | theophylline 200 MG | [facility] | | | Extended Release Oral | | | | Capsule [Hunter-24] | | + + + + | 2022-11-28 00:00 | theophylline 200 MG | [facility] | | | Extended Release Oral | | | | Capsule [Hunter-24] | | + + + + | 2014-01-04 00:00 | | [facility] | | | SULFAMETHOXAZOLE/TRIMETHOPR | | | | IM DS | | + + + + | 2014-01-04 00:00 | | [facility] | | | SULFAMETHOXAZOLE/TRIMETHOPR | | | | IM DS | | + + + + | 2016-02-17 00:00 | | [facility] | | | SULFAMETHOXAZOLE/TRIMETHOPR | | | | IM DS | | + + + + | 2016-02-17 00:00 | | [facility] | | | SULFAMETHOXAZOLE/TRIMETHOPR | | | | IM DS | | + + + + | 2014-01-04 00:00 | sulfamethoxazole 800 MG / | [facility] | | | trimethoprim 160 MG Oral | | | | Tablet [B | | + + + + | 2016-02-17 00:00 | sulfamethoxazole 800 MG / | [facility] | | | trimethoprim 160 MG Oral | | | | Tablet [B | | + + + + | 2022-11-28 00:00 | acetaminophen 325 MG / | [facility] | | | hydrocodone bitartrate 10 | | | | MG Oral Tab | | + + + + | 2022-09-01 00:00 | HYDROCODONE | [facility] | | | BIT/ACETAMINOPHEN | | + + + + | 2022-10-03 00:00 | HYDROCODONE | [facility] | | | BIT/ACETAMINOPHEN | | + + + + | 2022-11-15 00:00 | HYDROCODONE | [facility] | | | BIT/ACETAMINOPHEN | | + + + + | 2023-01-18 00:00 | HYDROCODONE | [facility] | | | BIT/ACETAMINOPHEN | | + + + + | 2022-11-15 00:00 | acetaminophen 325 MG / | [facility] | | | hydrocodone bitartrate 5 MG | | | | Oral Tabl | | + + + + | 2022-11-28 00:00 | acetaminophen 325 MG / | [facility] | | | hydrocodone bitartrate 5 MG | | | | Oral Tabl | | + + + + | 2014-11-05 00:00 | HYDROCODONE | [facility] | | | BIT/ACETAMINOPHEN | | + + + + | 2014-11-05 00:00 | HYDROCODONE | [facility] | | | BIT/ACETAMINOPHEN | | + + + + | 2014-11-05 00:00 | acetaminophen 325 MG / | [facility] | | | hydrocodone bitartrate 5 MG | | | | Oral Tabl | | + + + + | 2022-10-03 00:00 | HYDROCODONE | [facility] | | | BIT/ACETAMINOPHEN | | + + + + | 2022-10-03 00:00 | acetaminophen 325 MG / | [facility] | | | hydrocodone bitartrate 7.5 | | | | MG Oral Ta | | + + + + | 2022-09-01 00:00 | ALBUTEROL SULFATE | [facility] | + + + + | 2022-10-03 00:00 | ALBUTEROL SULFATE | [facility] | + + + + | 2022-11-15 00:00 | ALBUTEROL SULFATE | [facility] | + + + + | 2023-01-18 00:00 | ALBUTEROL SULFATE | [facility] | + + + + | 2022-11-15 00:00 | [id number] 200 ACTUAT | [facility] | | | albuterol 0.09 MG/ACTUAT | | | | Metered Dose I | | + + + + | 2022-11-28 00:00 | [id number] 200 ACTUAT | [facility] | | | albuterol 0.09 MG/ACTUAT | | | | Metered Dose I | | + + + + | 2022-11-15 00:00 | HYDROMORPHONE HCL | [facility] | + + + + | 2022-11-15 00:00 | hydromorphone | [facility] | | | hydrochloride 2 MG Oral | | | | Tablet [Dilaudid] | | + + + + | 2022-11-27 00:00 | hydromorphone | [facility] | | | hydrochloride 4 MG Oral | | | | Tablet | | + + + + | 2022-11-15 00:00 | 120 ACTUAT budesonide 0.18 | [facility] | | | MG/ACTUAT Dry Powder | | | | Inhaler [Pul | | + + + + | 2022-11-28 00:00 | 120 ACTUAT budesonide 0.18 | [facility] | | | MG/ACTUAT Dry Powder | | | | Inhaler [Pul | | + + + + | 2022-09-01 00:00 | BUDESONIDE | [facility] | + + + + | 2022-10-03 00:00 | BUDESONIDE | [facility] | + + + + | 2022-11-15 00:00 | BUDESONIDE | [facility] | + + + + | 2023-01-18 00:00 | BUDESONIDE | [facility] | + + + + Problems + + + + | date | description | facility | + + + + | 2014-11-02 00:00 | Sepsis | [facility] | + + + + | 2014-11-02 00:00 | Sepsis | [facility] | + + + + | 2015-07-06 00:00 | Laceration of right lower | [facility] | | | leg with complication | | + + + + | 2015-07-06 00:00 | Laceration of right lower | [facility] | | | leg with complication | | + + + + | 2015-07-06 00:00 | History of conscious | [facility] | | | sedation | | + + + + | 2015-07-06 00:00 | History of conscious | [facility] | | | sedation | | + + + + | 2016 00:00 | Cellulitis of right foot | [facility] | + + + + | 2016 00:00 | Cellulitis of right foot | [facility] | + + + + | 2016-02-16 00:00 | Sepsis, Gram positive | [facility] | + + + + | 2016-02-16 00:00 | Morbid obesity with BMI of | [facility] | | | 40.0-44.9, adult | | + + + + | 2016-02-16 00:00 | Transaminitis | [facility] | + + + + | 2016-02-16 00:00 | Gram positive sepsis | [facility] | + + + + | 2016-02-16 00:00 | Gram positive sepsis | [facility] | + + + + | 2016-02-16 00:00 | Herpes zoster | [facility] | + + + + | 2016-02-16 00:00 | Herpes zoster | [facility] | + + + + | 2016-02-16 00:00 | Morbid obesity with body | [facility] | | | mass index (BMI) of 40.0 to | | | | 44.9 in adult | | + + + + | 2016-02-16 00:00 | Morbid obesity with body | [facility] | | | mass index (BMI) of 40.0 to | | | | 44.9 in adult | | + + + + | 2016-02-16 00:00 | Chronic pain syndrome | [facility] | + + + + | 2016-02-16 00:00 | Chronic pain syndrome | [facility] | + + + + | 2016-02-16 00:00 | Steroid-dependent asthma | [facility] | + + + + | 2016-02-16 00:00 | Steroid-dependent asthma | [facility] | + + + + | 2016-02-16 00:00 | Elevated transaminase | [facility] | | | measurement | | + + + + | 2016-02-16 00:00 | Elevated transaminase | [facility] | | | measurement | | + + + + | 2016-03-11 00:00 | Contusion of left shoulder | [facility] | | | | | + + + + | 2016-03-11 00:00 | Contusion of left shoulder | [facility] | | | | | + + + + | 2016-03-11 00:00 | Skin tear of left upper | [facility] | | | extremity | | + + + + | 2016-03-11 00:00 | Skin tear of left upper | [facility] | | | extremity | | + + + + | 2016-03-11 00:00 | Tear of skin of multiple | [facility] | | | sites of lower extremity | | + + + + | 2016-03-11 00:00 | Tear of skin of multiple | [facility] | | | sites of lower extremity | | + + + + | 2016-03-11 00:00 | Fall from ground level | [facility] | + + + + | 2016-03-11 00:00 | Fall from ground level | [facility] | + + + + | 2022-09-01 00:00 | UTI (urinary tract | [facility] | | | infection) | | + + + + | 2022-09-01 00:00 | Gastritis | [facility] | + + + + | 2022-09-01 00:00 | Gastritis | [facility] | + + + + | 2022-09-01 00:00 | Urinary tract infection | [facility] | + + + + | 2022-09-01 00:00 | Urinary tract infection | [facility] | + + + + | 2022-09-01 13:18 | GASTRITIS, UNSPECIFIED, | [facility] | | | WITHOUT BLEEDING | | + + + + | 2022-09-01 13:18 | URINARY TRACT INFECTION, | [facility] | | | SITE NOT SPECIFIED | | + + + + | 2022-09-01 13:18 | EPIGASTRIC PAIN | [facility] | + + + + | 2022-09-01 13:18 | 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 MANAGER (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 | [facility] | | | SYSTEMIC STEROIDS | | + + + + | 2022-09-01 13:18 | ALLERGY TO MILK PRODUCTS | [facility] | + + + + | 2022-10-03 00:00 | Mass of pancreas | [facility] | + + + + | 2022-10-03 00:00 | Dyspepsia | [facility] | + + + + | [...] + + | 2022-10-03 13:51 | OTHER 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 MANAGER (CURRENT) | [facility] | | | DRUG [...] + + | 2022-11-15 09:57 | OTHER CUSTODIAL (CURRENT) | [facility] | | | DRUG [...] | 2022-11-20 00:00 | Incarcerated hernia | [facility] | + + + + | 2022-11-20 00:00 | Hernia | [facility] | + + + + | 2022-11-20 00:00 | Abdominal pain | [facility] | + + + + | [...] + + + | 2022-11-21 09:12 | CUSTODIAL (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 | [facility] | | | SYSTEMIC STEROIDS | | + + + + | 2022-11-21 09:12 | 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 MANAGER (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 | [facility] | | | OPIATE ANALGESIC | | + + + + | 2022-11-21 09:12 | OTHER CUSTODIAL (CURRENT) | [facility] | | | DRUG [...] 2023-01-18 00:00 | Abdominal wall seroma | [facility] | + + + + Procedures + + + + | date | description | facility | + + + + | 2022-11-20 00:00 | Repair of incisional | [facility] | | | hernia | | + + + + | 2022-11-15 00:00 | Laparotomy | [facility] | + + + + Results/Labs [...] | [facility] | | | | | nitrogen/cre | [...] | 2022-11-15 00:00 | Never smoker | [facility] | + + + + | 2022-11-28 00:00 | Never smoker | [facility] | + + + + Vital [...]
[~2023-01-19 15:54] MED LIST changes: +FENTANYL1 EAC7 TD
--- OUTSIDE RECORDS SUMMARY | 2023-01-19 15:57 | XMS ---
PreManage Notification: RENUKA SHARMA Security Sample Carrier Events No recent Security Events currently on file [facility] CARE PROVIDERS -Pio DMD Dentist: Line Maintenance Technician Current PHONE: [phone] Savana has no Care Guidelines for this patient. Sarah VISIT COUNT (12 MO.) 5 [facility] TOTAL 5 NOTE: Visits indicate total known visits. ED/UCC VISIT TRACKING (12 MO.) 01/19/2023 15:54 [facility] TYPE: Emergency COMPLAINT: - URINE PROBLEMS, COLD SYMPTOMS 01/18/2023 04:57 [facility] TYPE: Emergency COMPLAINT: - ABD PAIN 11/20/2022 14:39 [facility] TYPE: Emergency COMPLAINT: - ABDOMINAL PAIN 10/03/2022 13:51 [facility] TYPE: Emergency COMPLAINT: - ABDOMINAL PAIN DIAGNOSES: - Allergy to milk products - Disease of pancreas, unspecified - Food additives allergy status - Other long-term (current) drug therapy - Unspecified asthma, uncomplicated - Upper abdominal pain, unspecified 09/01/2022 13:18 [facility] TYPE: Emergency COMPLAINT: - ABD PAIN, NAUSEA, ACID DIAGNOSES: - Allergy to milk products - Epigastric pain - Gastritis, unspecified, without bleeding - correction (current) use of systemic steroids - Urinary [...] Incisional hernia with obstruction, without gangrene - moth exterminator (current) use of opiate analgesic - correction (current) use of opiate analgesic - correction (current) use of systemic steroids - moth exterminator (current) use of systemic steroids - Malignant neoplasm of endocrine pancreas - Malignant neoplasm of other parts of pancreas - Malignant neoplasm of pancreas, unspecified - Malignant neoplasm of pancreas, unspecified - Morbid (severe) obesity due to excess calories - Morbid (severe) obesity due to excess calories - Neoplasm related pain (acute) (chronic) - Neoplasm related pain (acute) (chronic) - Other long-term (current) drug therapy - Other director long term care (current) drug therapy - Other specified postprocedural [...] asthma, uncomplicated - Upper abdominal pain, unspecified [email or web address]
[2023-01-19 20:02] VITALS: BP 131/108
== END 2023-01-19 19:50 | disposition home or self-care (01) ==
LOC: ED 15:54
DX: K56.41 Fecal impaction (principal); J45.909 Unspecified asthma, uncomplicated; Z88.4 Allergy status to anesthetic agent; Z91.011 Allergy to milk products; Z79.899 Other long term (current) drug therapy
CPT/HCPCS: 51702; 51798; 94640; 99284-25; J1170